=== PATIENT | female | born 1945 | race Caucasian/White ===

== ENCOUNTER → 2016-06-23 | Outpatient (CLI) | payer MEDICARE ==
--- NOTE | 2016-06-23 13:44 | REP ---
Clinical: Chronic obstructive airway disease/asthma. Technique: PA and lateral. Comparison: 10/01/2015. Findings: Mediastinum and cardiac silhouette are normal. Lung ortega demonstrate chronic interstitial changes as well as postsurgical changes at the right lung base. No obvious acute consolidation, effusion, or pneumothorax. Skeletal structures intact. Impression: Chronic and postsurgical changes similar to prior examination. Signed by Bucky Magaña MD 06/23/2016 01:35 P
== END ==
LOC: M SMT 13:02
PROVIDERS: ATTEND Nurse Practitioner Adult Health
DX: R05 Cough (principal); J45.40 Moderate persistent asthma, uncomplicated

== ENCOUNTER → 2016-09-19 | Outpatient (CLI) | payer MEDICARE ==
[2016-09-19 19:19] LABS: ALBUMIN 4.1 GM/DL (3.2-5.2); ALBUMIN/GLOBULIN RATIO 1.52 (1.00-1.93); ALKALINE PHOSPHATASE 89 U/L (45-117); ALT/SGPT 34 U/L (12-78); ANION GAP 4 MEQ/L (8-16); AST/SGOT 14 U/L (15-37); BILIRUBIN,TOTAL 0.4 MG/DL (0.2-1.0); BLOOD UREA NITROGEN 20 MG/DL (7-18); CALCIUM LEVEL 8.4 MG/DL (8.8-10.2); CARBON DIOXIDE LEVEL 30 MEQ/L (21-32); CHLORIDE LEVEL 107 MEQ/L (98-107); CHOLESTEROL LEVEL 234 MG/DL (<200); CREATININE FOR GFR 0.82 MG/DL (0.55-1.02); GLOMERULAR FILTRATION RATE > 60.0 (>39); GLUCOSE, FASTING 149 MG/DL (83-110); POTASSIUM SERUM 4.2 MEQ/L (3.5-5.1); SODIUM LEVEL 141 MEQ/L (136-145); TOTAL PROTEIN 6.8 GM/DL (6.4-8.2); TRIGLYCERIDES LEVEL 103 MG/DL (<150)
== END ==
LOC: M WUC 08:12
PROVIDERS: ATTEND Internal Medicine
DX: E78.00 Pure hypercholesterolemia, unspecified (principal); E11.9 Type 2 diabetes mellitus without complications

== ENCOUNTER → 2016-10-18 | Outpatient (CLI) | payer MEDICARE ==
[~2016-10-18] VITALS: Ht 166.4 cm; Wt 85.7 kg
[~2016-10-18] MED LIST: ADV250INH INH; ATOR1TAB21 PO; GLIP5TAB8 PO; HYDR-3713 PO; JANU100T PO; LIDOCAINE 2% MDV 20 ML VIAL As Ordered ONE; NS 1,000 ML IV ONE; PANT40TA2 PO; PROPOFOL 200 MG/20 ML VIAL As Ordered ONE; VALA1TAB2 PO; VITA500046 PO
--- NOTE | 2016-10-18 15:01 | ROOR ---
Patient Name: Sissy Bowman Procedure Date: 10/18/2016 2:43 PM Date of : 1945 Age: 71 Room: [facility] Gender: Female Note Status: Finalized Procedure: Upper Endoscopy + Biopsies Indications: Epigastric abdominal pain, Heartburn, Exclusion of Edwards's esophagus Providers: John Olea MD Referring MD: Satnam Arizmendi MD Requesting Provider: Medicines: Monitored Anesthesia Care Complications: No immediate complications. Procedure: Pre-Anesthesia Assessment: - The heart rate, respiratory rate, oxygen saturations, blood pressure, adequacy of pulmonary ventilation, and response to care were monitored throughout the procedure. The Endoscope was introduced through the mouth, and advanced to the second part of duodenum. The upper GI endoscopy was accomplished without difficulty. The patient tolerated the procedure well. Findings: The Z-line was irregular and was found 35 cm from the incisors. Multiple biopsies were obtained with cold forceps for evaluation to rule out Edwards's Esophagus randomly at the gastroesophageal junction. A medium-sized hiatal hernia was present. No other significant abnormalities were identified in a careful examination of the stomach. The exam of the duodenum was otherwise normal. Impression: - Z-line irregular, 35 cm from the incisors. - Medium-sized hiatal hernia. - Multiple biopsies were obtained at the gastroesophageal junction. - The examination was otherwise normal. Recommendation: - Patient has a contact number available for emergencies. The signs and symptoms of potential delayed complications were discussed with the patient. Return to normal activities tomorrow. Written discharge instructions were provided to the patient. - High fiber diet. - Discharge patient to home. - Continue present medications. - Await pathology results. - Telephone GI clinic for pathology results in 1 week. - Follow an antireflux regimen. - Return to referring physician. - Check Portal Online for Path Results.([email or web address] - The findings and recommendations were discussed with the patient's family. John Olea MD John Olea MD 10/18/2016 3:01:06 PM This report has been signed electronically. Number of Addenda: 0 Note Initiated On: 10/18/2016 2:43 PM Estimated Blood Loss: Estimated blood loss: none.
--- NOTE | 2016-10-18 15:31 | ROOR ---
Patient Name: Sissy Bowman Procedure Date: 10/18/2016 2:44 PM Date of : 1945 Age: 71 Room: [facility] Gender: Female Note Status: Finalized Procedure: Total Colonoscopy to Cecum + Cold Snare Polypectomy + Hemoclips Indications: Colon cancer screening in patient at increased risk: Colorectal cancer in mother, High risk colon cancer surveillance: Personal history of colonic polyps Providers: John Olea MD Referring MD: Satnam Arizmendi MD Requesting Provider: Medicines: Monitored Anesthesia Care Complications: No immediate complications. Procedure: Pre-Anesthesia Assessment: - The heart rate, respiratory rate, oxygen saturations, blood pressure, adequacy of pulmonary ventilation, and response to care were monitored throughout the procedure. The Colonoscope was introduced through the anus and advanced to the cecum, identified by appendiceal orifice and ileocecal valve. The colonoscopy was performed without difficulty. The patient tolerated the procedure well. The quality of the bowel preparation was excellent. Findings: The perianal and digital rectal examinations were normal. Non-bleeding internal hemorrhoids were found during retroflexion. The hemorrhoids were small and Grade I (internal hemorrhoids that do not prolapse). Multiple small and large-mouthed diverticula were found in the recto-sigmoid colon, sigmoid colon and descending colon. A large polyp was found in the mid ascending colon. The polyp was carpet-like. The polyp was removed with a cold snare. Resection and retrieval were complete. To prevent bleeding after the polypectomy, two hemostatic clips were successfully placed (MR conditional). There was no bleeding at the end of the procedure. The exam was otherwise without abnormality on direct and retroflexion views. Impression: - Non-bleeding internal hemorrhoids. - Diverticulosis in the recto-sigmoid colon, in the sigmoid colon and in the descending colon. - One large polyp in the mid ascending colon, removed with a cold snare. Resected and retrieved. Clips (MR conditional) were placed. - The examination was otherwise normal on direct and retroflexion views. - The exam was otherwise normal to the cecum. Recommendation: - Patient has a contact number available for emergencies. The signs and symptoms of potential delayed complications were discussed with the patient. Return to normal activities tomorrow. Written discharge instructions were provided to the patient. - High fiber diet. - Discharge patient to home. - Continue present medications. - Await pathology results. - Telephone GI clinic for pathology results in 1 week. - Repeat colonoscopy for surveillance based on pathology results. - Return to referring physician. - Check Portal Online for Path Results.([email or web address] - The findings and recommendations were discussed with the patient's family. John lOea MD John Olea MD 10/18/2016 3:30:53 PM This report has been signed electronically. Number of Addenda: 0 Note Initiated On: 10/18/2016 2:44 PM Estimated Blood Loss: Estimated blood loss: none.
[2016-10-18 15:55] VITALS: BP 140/69
== END ==
LOC: M OPP 14:10
PROVIDERS: ATTEND Internal Medicine Gastroenterology
DX: Z12.11 Encounter for screening for malignant neoplasm of colon (principal); Z80.0 Family history of malignant neoplasm of digestive organs; K64.0 First degree hemorrhoids; K57.30 Diverticulosis of large intestine without perforation or abscess without bleeding; D12.2 Benign neoplasm of ascending colon; K21.9 Gastro-esophageal reflux disease without esophagitis; K22.8 Other specified diseases of esophagus; K44.9 Diaphragmatic hernia without obstruction or gangrene; K20.9 Esophagitis, unspecified; E11.9 Type 2 diabetes mellitus without complications; M19.90 Unspecified osteoarthritis, unspecified site; G47.30 Sleep apnea, unspecified; E78.00 Pure hypercholesterolemia, unspecified; J45.909 Unspecified asthma, uncomplicated; Z79.51 Long term (current) use of inhaled steroids; Z79.899 Other long term (current) drug therapy; Z88.2 Allergy status to sulfonamides; Z91.040 Latex allergy status; Z88.8 Allergy status to other drugs, medicaments and biological substances; Z88.5 Allergy status to narcotic agent; Z87.891 Personal history of nicotine dependence

== ENCOUNTER → 2016-10-27 | Outpatient (REF) | payer MEDICARE ==
[~2016-10-27] MED LIST changes: -LIDOCAINE 2% MDV 20 ML VIAL As Ordered ONE; -NS 1,000 ML IV ONE; -PROPOFOL 200 MG/20 ML VIAL As Ordered ONE
[2016-10-27 10:40] LABS: MEAN CORPUSCULAR HEMOGLOBIN 29.3 pg (27.0-33.0); MEAN CORPUSCULAR HGB CONC 33.8 g/dl (32.0-36.5); MEAN CORPUSCULAR VOLUME 86.7 fl (80.0-96.0); RED CELL DISTRIBUTION WIDTH 14.4 % (11.5-14.5)
== END ==
LOC: M SFHCPLAZ 08:43
PROVIDERS: ATTEND Internal Medicine
DX: Z01.818 Encounter for other preprocedural examination (principal); M48.06 Spinal stenosis, lumbar region; G47.33 Obstructive sleep apnea (adult) (pediatric)
CPT/HCPCS: 36415; 85027; 93005; G0463

== ENCOUNTER → 2016-12-28 | Outpatient (REF) | payer MEDICARE ==
[2016-12-28 12:21] LABS: MEAN CORPUSCULAR HEMOGLOBIN 25.1 pg (27.0-33.0); MEAN CORPUSCULAR HGB CONC 30.1 g/dl (32.0-36.5); MEAN CORPUSCULAR VOLUME 83.5 fl (80.0-96.0); RED CELL DISTRIBUTION WIDTH 14.8 % (11.5-14.5); WHITE BLOOD COUNT 6.6 10^3/uL (4.0-10.0)
[2016-12-28 12:48] LABS: ALBUMIN/GLOBULIN RATIO 1.25 (1.00-1.93); ALKALINE PHOSPHATASE 100 U/L (45-117); ALT/SGPT 30 U/L (12-78); ANION GAP 9 MEQ/L (8-16); AST/SGOT 14 U/L (15-37); BILIRUBIN,TOTAL 0.4 MG/DL (0.2-1.0); BLOOD UREA NITROGEN 20 MG/DL (7-18); CALCIUM LEVEL 9.7 MG/DL (8.8-10.2); CARBON DIOXIDE LEVEL 27 MEQ/L (21-32); CHLORIDE LEVEL 104 MEQ/L (98-107); CHOLESTEROL LEVEL 246 MG/DL (<200); CREATININE FOR GFR 0.68 MG/DL (0.55-1.02); GLOMERULAR FILTRATION RATE > 60.0 (>39); GLUCOSE, FASTING 163 MG/DL (83-110); POTASSIUM SERUM 4.2 MEQ/L (3.5-5.1); SODIUM LEVEL 140 MEQ/L (136-145); TOTAL PROTEIN 7.2 GM/DL (6.4-8.2); TRIGLYCERIDES LEVEL 150 MG/DL (<150)
== END ==
LOC: M LABDRAW1 09:55
PROVIDERS: ATTEND Internal Medicine
DX: E11.9 Type 2 diabetes mellitus without complications (principal); E78.00 Pure hypercholesterolemia, unspecified; G47.33 Obstructive sleep apnea (adult) (pediatric)

== ENCOUNTER 2016-12-30 07:45 | Outpatient (RCR) | payer MEDICARE | END 2017-01-01 | LOC: M PT 07:45 | PROVIDERS: ATTEND Orthopaedic Surgery | DX: Z51.89 Encounter for other specified aftercare (principal); M43.26 Fusion of spine, lumbar region | CPT/HCPCS: 97110; 97161; G8978; G8979 ==

== ENCOUNTER 2017-02-23 09:04 | Outpatient (RCR) | payer MEDICARE | END 2017-03-03 | LOC: M PT 09:04 | PROVIDERS: ATTEND Orthopaedic Surgery | DX: Z47.89 Encounter for other orthopedic aftercare (principal); M54.5 Low back pain | CPT/HCPCS: 97110; 97112; G8978; G8979 ==

== ENCOUNTER 2017-03-08 10:02 | Outpatient (RCR) | payer MEDICARE | END 2017-04-03 | LOC: M PT 10:02 | DX: Z47.89 Encounter for other orthopedic aftercare (principal); Z98.1 Arthrodesis status | CPT/HCPCS: 97110 ==

== ENCOUNTER → 2017-04-14 | Outpatient (REF) | payer MEDICARE ==
[2017-04-14 14:52] LABS: HEMATOCRIT 37.8 % (36.0-47.0); HEMOGLOBIN 11.6 g/dl (12.0-16.0); MEAN CORPUSCULAR HEMOGLOBIN 24.2 pg (27.0-33.0); MEAN CORPUSCULAR HGB CONC 30.7 g/dl (32.0-36.5); MEAN CORPUSCULAR VOLUME 78.8 fl (80.0-96.0); PLATELET COUNT, AUTOMATED 292 10^3/uL (150-450); RED CELL DISTRIBUTION WIDTH 19.2 % (11.5-14.5); WHITE BLOOD COUNT 7.1 10^3/uL (4.0-10.0)
[2017-04-14 15:10] LABS: ALBUMIN 4.3 GM/DL (3.2-5.2); ALBUMIN/GLOBULIN RATIO 1.43 (1.00-1.93); ALKALINE PHOSPHATASE 103 U/L (45-117); ALT/SGPT 23 U/L (12-78); ANION GAP 9 MEQ/L (8-16); AST/SGOT 16 U/L (7-37); BILIRUBIN,TOTAL 0.5 MG/DL (0.2-1.0); BLOOD UREA NITROGEN 17 MG/DL (7-18); C REACTIVE PROTEIN QUANTITATIV 1.81 MG/DL (0.00-0.30); CALCIUM LEVEL 9.2 MG/DL (8.8-10.2); CARBON DIOXIDE LEVEL 26 MEQ/L (21-32); CHLORIDE LEVEL 106 MEQ/L (98-107); CHOLESTEROL LEVEL 271 MG/DL (<200); CHOLESTEROL RISK RATIO 3.188 (<5); CREATININE FOR GFR 0.69 MG/DL (0.55-1.02); FREE T3 2.8 PG/ML (2.2-4.0); FREE T4 1.11 NG/DL (0.76-1.46); GLOMERULAR FILTRATION RATE > 60.0 (>39); GLUCOSE, FASTING 159 MG/DL (83-110); HDL CHOLESTEROL 85 MG/DL (>40); LDL CHOLESTEROL 159.2 MG/DL (<100); NON-HDL-C 186 MG/DL; POTASSIUM SERUM 4.3 MEQ/L (3.5-5.1); SODIUM LEVEL 141 MEQ/L (136-145); TOTAL PROTEIN 7.3 GM/DL (6.4-8.2); TRIGLYCERIDES LEVEL 134 MG/DL (<150)
[2017-04-14 15:25] LABS: MALB URINE SIEMENS 22.2 MG/L; MAU/CREAT RATIO 10.8 MCG/MG (0.0-30.0)
[2017-04-14 16:31] LABS: ESTIMATED AVERAGE GLUCOSE 151 MG/DL (60-110); HEMOGLOBIN A1c 6.9 %
== END ==
LOC: M SFHCPLAZ 13:43
DX: G47.33 Obstructive sleep apnea (adult) (pediatric) (principal); E11.9 Type 2 diabetes mellitus without complications; R61 Generalized hyperhidrosis
CPT/HCPCS: 84443

== ENCOUNTER → 2017-04-14 | Outpatient (REF) | payer MEDICARE ==
[2017-04-14 15:02] LABS: CREATININE FOR GFR 0.72 MG/DL (0.55-1.02); GLOMERULAR FILTRATION RATE > 60.0 (>39)
[2017-04-14 15:02] LABS: BLOOD UREA NITROGEN 17 MG/DL (7-18)
== END ==
LOC: M LABDRAW1 13:45
DX: Z01.818 Encounter for other preprocedural examination (principal)

== ENCOUNTER 2017-05-02 09:24 | Outpatient (RCR) | payer MEDICARE | END 2017-05-04 | LOC: M PT 09:24 | DX: Z51.89 Encounter for other specified aftercare (principal); Z98.1 Arthrodesis status | CPT/HCPCS: 97164 ==

== ENCOUNTER 2017-05-05 09:10 | Outpatient (RCR) | payer MEDICARE | END 2017-06-01 | LOC: M PT 05-09 08:30 | DX: Z47.89 Encounter for other orthopedic aftercare (principal); Z98.1 Arthrodesis status; M54.5 Low back pain | CPT/HCPCS: 97110 ==

== ENCOUNTER 2017-06-02 08:29 | Outpatient (RCR) | payer MEDICARE | END 2017-07-02 | LOC: M PT 06-07 08:30 | DX: Z51.89 Encounter for other specified aftercare (principal); Z98.1 Arthrodesis status; M54.5 Low back pain | CPT/HCPCS: 97110 ==

== ENCOUNTER 2017-07-06 09:14 | Outpatient (RCR) | payer MEDICARE | END 2017-08-01 | LOC: M PT 09:14 | DX: Z47.89 Encounter for other orthopedic aftercare (principal); M54.5 Low back pain; Z98.1 Arthrodesis status; M48.061 Spinal stenosis, lumbar region without neurogenic claudication | CPT/HCPCS: 97110 ==

== ENCOUNTER → 2017-07-29 | Outpatient (REF) | payer MEDICARE, OTHER ==
[2017-07-29 10:11] LABS: ESTIMATED AVERAGE GLUCOSE 143 MG/DL (60-110); HEMOGLOBIN A1c 6.6 %
[2017-07-29 10:12] LABS: ALBUMIN/GLOBULIN RATIO 1.29 (1.00-1.93); ALKALINE PHOSPHATASE 93 U/L (45-117); ALT/SGPT 20 U/L (12-78); ANION GAP 6 MEQ/L (8-16); AST/SGOT 17 U/L (7-37); BILIRUBIN,TOTAL 0.4 MG/DL (0.2-1.0); BLOOD UREA NITROGEN 15 MG/DL (7-18); CALCIUM LEVEL 8.8 MG/DL (8.8-10.2); CARBON DIOXIDE LEVEL 27 MEQ/L (21-32); CHLORIDE LEVEL 111 MEQ/L (98-107); CHOLESTEROL LEVEL 250 MG/DL (<200); CHOLESTEROL RISK RATIO 3.623 (<5); CREATININE FOR GFR 0.68 MG/DL (0.55-1.30); GLOMERULAR FILTRATION RATE > 60.0 (>39); GLUCOSE, FASTING 125 MG/DL (70-100); HDL CHOLESTEROL 69 MG/DL (>40); LDL CHOLESTEROL 143.2 MG/DL (<100); NON-HDL-C 181 MG/DL; POTASSIUM SERUM 4.1 MEQ/L (3.5-5.1); SODIUM LEVEL 144 MEQ/L (136-145); TOTAL PROTEIN 7.1 GM/DL (6.4-8.2); TRIGLYCERIDES LEVEL 189 MG/DL (<150)
== END ==
LOC: M LABDRAW1 08:12
DX: E78.00 Pure hypercholesterolemia, unspecified (principal); E11.9 Type 2 diabetes mellitus without complications
CPT/HCPCS: 80053

== ENCOUNTER 2017-08-02 07:43 | Outpatient (RCR) | payer OTHER, MEDICARE | END 2017-09-01 | LOC: M PT 07:43 | DX: Z47.89 Encounter for other orthopedic aftercare (principal); M65.012 Abscess of tendon sheath, left shoulder | CPT/HCPCS: 97010 ==

== ENCOUNTER 2017-08-03 09:14 | Outpatient (RCR) | payer MEDICARE | END 2017-09-01 | disposition home or self-care (01) | LOC: M PT 09:14 | DX: Z47.89 Encounter for other orthopedic aftercare (principal); M54.5 Low back pain | CPT/HCPCS: 97110 ==

== ENCOUNTER 2017-09-06 08:33 | Outpatient (RCR) | payer OTHER | END 2017-10-01 | LOC: M PT 08:33 | DX: Z51.89 Encounter for other specified aftercare (principal); M75.32 Calcific tendinitis of left shoulder ==

== ENCOUNTER → 2018-02-13 | Outpatient (CLI) | payer MEDICARE ==
[2018-02-13 12:53] LABS: ALBUMIN 3.8 GM/DL (3.2-5.2); ALBUMIN/GLOBULIN RATIO 1.23 (1.00-1.93); ALKALINE PHOSPHATASE 89 U/L (45-117); ALT/SGPT 23 U/L (12-78); ANION GAP 8 MEQ/L (8-16); AST/SGOT 20 U/L (7-37); BILIRUBIN,TOTAL 0.4 MG/DL (0.2-1.0); BLOOD UREA NITROGEN 18 MG/DL (7-18); CARBON DIOXIDE LEVEL 26 MEQ/L (21-32); CHLORIDE LEVEL 108 MEQ/L (98-107); CHOLESTEROL LEVEL 255 MG/DL (<200); CHOLESTEROL RISK RATIO 3.148 (<5); CREATININE FOR GFR 0.71 MG/DL (0.55-1.30); GLOMERULAR FILTRATION RATE > 60.0 (>39); GLUCOSE, FASTING 131 MG/DL (70-100); HDL CHOLESTEROL 81 MG/DL (>40); LDL CHOLESTEROL 148 MG/DL (<100); NON-HDL-C 174 MG/DL; POTASSIUM SERUM 4.7 MEQ/L (3.5-5.1); SODIUM LEVEL 142 MEQ/L (136-145); TOTAL PROTEIN 6.9 GM/DL (6.4-8.2); TRIGLYCERIDES LEVEL 131 MG/DL (<150)
[2018-02-13 13:10] LABS: MALB URINE SIEMENS 10.8 MG/L
[2018-02-13 13:20] LABS: MAU/CREAT RATIO 8.5 MCG/MG (0.0-30.0)
[2018-02-13 14:59] LABS: ESTIMATED AVERAGE GLUCOSE 146 MG/DL (60-110); HEMOGLOBIN A1c 6.7 %
== END ==
LOC: M WUC 08:50
DX: E11.9 Type 2 diabetes mellitus without complications (principal); E78.00 Pure hypercholesterolemia, unspecified
CPT/HCPCS: 80053

== ENCOUNTER → 2018-07-17 | Outpatient (CLI) | payer MEDICARE ==
[~2018-07-17] MED LIST changes: +BUPIVACAINE HCL 0.25% 10 ML VIAL As Ordered ONE; +BUPIVACAINE HCL 0.25% 30 ML VIAL As Ordered ONE; -PANT40TA2 PO; +PANT40TA3 PO; +TRIAMCINOLONE ACETONIDE SUSP 40 MG/ML VIAL (J3301) As Ordered ONE
--- NOTE | 2018-07-31 00:06 | ECWPNPC ---
PATIENT NAME: ZACKARY RAMOS : 1945 GENDER: FEMALE VISIT DATE: 07/17/2018 DISCHARGE DATE: 07/17/18 1542 VISIT LOCKED DATE TIME: PHYSICIAN: NAVID GORDON MD RESOURCE: NAVID GORDON MD REASON FOR APPOINTMENT 1. CHRONIC BACK PAIN HISTORY OF PRESENT ILLNESS PAIN SCREENING: PATIENT HAS A COMPLAINT OF ACUTE OR CHRONIC PAIN :YES 72 YEAR OLD FEMALE PATIENT WITH A HISTORY OF CHRONIC LOW BACK PAIN. THE PATIENT DESCRIBES THE PAIN TENDER, SHARP, STABBING, AND CONTINUOUS WITH A PAIN SCORE OF 4-9/10 DEPENDING ON PHYSICAL ACTIVITY. THE PATIENT SAYS THAT SHE HAS HAD THIS PAIN FOR YEARS. THE PATIENT SAYS THAT SHE HAD A FUSION IN NOVEMBER 2016, BUT HER PAIN PERSISTED. THE PATIENT SAYS THAT HER PAIN IS IN HER LOW BACK AREA AND SHE ALSO HAS SOME PAIN IN HER HIPS. THE PATIENT SAYS THAT SHE HAS TRIED INJECTIONS IN THE PAST WITH VARIABLE RESULTS. THE PATIENT HAS TRIED PHYSICAL THERAPY AND SAYS THAT IT HELPED HER. THE PATIENT STATES THAT SHE HAS DIFFICULTY SLEEPING DUE TO THIS PAIN. PATIENT DENIES UNEXPLAINABLE WEIGHT LOSS, FEVER, CHILLS, NEW CHANGES ON HER URINARY OR BOWEL CONTROL. FALL RISK SCREENING: SCREENING :NO FALLS REPORTED IN THE LAST YEAR CURRENT MEDICATIONS TAKING VALTREX 1 GM TABLET DIRECTED ORALLY TAKE 2 TABS AT THE FIRST SIGN OF OUTBREAK AND REPEAT 2 TABS IN 12 HOURS TAKING SYSTANE 0.4-0.3 % SOLUTION 1 DROP INTO AFFECTED EYE NEEDED OPHTHALMIC DAILY NEEDED TAKING PROVENTIL HFA 108 (90 BASE) MCG/ACT AEROSOL SOLUTION 2 PUFFS ` INHALATION EVERY 4 HRS NEEDED FOR WHEEZING TAKING PROTONIX 40 MG TABLET DELAYED RELEASE 1 TABLET ORALLY ONCE A DAY TAKING JANUVIA 100 MG TABLET 1 TABLET ORALLY ONCE A DAY TAKING MICROLET LANCETS - MISCELLANEOUS DIRECTED E11.9 DAILY TAKING GLIPIZIDE 5 MG TABLET 1/2 TABLET ORALLY WTH SUPPER TAKING ADVAIR DISKUS 500-50 MCG/DOSE AEROSOL POWDER BREATH ACTIVATED 1 PUFF INHALATION TWICE A DAY TAKING BLOOD GLUCOSE TEST - STRIP DIRECTED IN VITRO, DX: E11.9 DAILY TAKING RHINOCORT AQUA 32 MCG/ACT SUSPENSION 2 PUFFS IN EACH NOSTRIL NASALLY ONCE A DAY NEEDED TAKING VITAMIN D3 2000 UNIT CAPSULE 1 TABLET ONCE A DAY TAKING MICROLET LANCETS _ MISCELLANEOUS DIRECTED DX: E11.9 DAILY, NOTES: DUPLICATE TAKING CALCIUM 500 MG TABLET 2 TABLET WITH MEALS ORALLY TWICE A DAY TAKING ADVIL 200 MG TABLET 2 TABLETS WITH FOOD OR MILK NEEDED ORALLY EVERY 6 HOURS NEEDED NOT-TAKING CLONIDINE HCL 0.1 MG TABLET 1 TABLET AT BEDTIME ORALLY ONCE A DAY NOT-TAKING ATORVASTATIN CALCIUM 20 MG TABLET 1 TABLET ORALLY ONCE A DAY NOT-TAKING FOSAMAX 70 MG TABLET 1 TABLET ORALLY ONCE A WEEK NOT-TAKING DIFLUCAN 150 MG TABLET DIRECTED ORALLY ONE TAB TODAY AND REPEAT IN 3 DAYS IF SYMPTOMS PERSIST NOT-TAKING FISH OIL 1000 MG CAPSULE 3 CAPSULE ORALLY ONCE A DAY MEDICATION LIST REVIEWED AND RECONCILED WITH THE PATIENT PAST MEDICAL HISTORY ASTHMA DIABETES MELLITUS HYPERCHOLESTEROLEMIA ALLERGIC RHINITIS HISTORY OF ADENOMATOUS POLYP OF COLON CHRONIC ARTHRITIS DYSTHYMIA OBSTRUCTIVE SLEEP APNEA INSOMNIA UNSPECIFIED ABDOMINAL PAIN HERPES SIMPLEX DISEASE NIGHT SWEATS HISTORY OF SPINAL STENOSIS AGE-RELATED OSTEOPOROSIS WITHOUT CURRENT PATHOLOGICAL FRACTURE BACK PAIN ALLERGIES TORECAN: STIFF JAW - ALLERGY LEVAQUIN: RASH - ALLERGY IV TEQUIN: RASH - ALLERGY SULFACET-R: SEVERE HEADACHES - SIDE EFFECTS TAPES: RASH - ALLERGY DEMEROL: HALLUCINATIONS - ALLERGY METFORMIN HCL: EXCESSIVE NIGHT SWEATS,ELEVATED GLUCOSE - ALLERGY LEXAPRO: GROGGY - SIDE EFFECTS SULFA (FOR ALLERGY USE ONLY): SEVERE HESDACHE - ALLERGY REMERON: GROGGY - SIDE EFFECTS SURGICAL HISTORY TONSILLECTOMY CHILDHOOD D&C HYSTERECTOMY, TRANSVAGINAL FOR FIBROIDS 1989 RIGHT LOWER LOBE RESECTION FOR PULMONARY NODULE (FOUND TO BE TANJA) 1990 ENDOSCOPIC SINUS SURGERY 1997 BILATERAL BREAST REDUCTION 2006 COLONOSCOPY 11/2010 COLONOSCOPY AND UPPER ENDOSCOPIES-DR. KAYE 10/18/2016 L2-5 LAMENECTOMY AND FUSION-DR LUCAS, FOR SPINAL STENOSIS 11/11/2016 FAMILY HISTORY FATHER: , DIAGNOSED WITH DIABETES, HYPERTENSION, HEART DISEASE MOTHER: , OTHER, CANCER SIBLINGS: ALIVE DAUGHTER(S): ALIVE PATERNAL GRAND FATHER: PATERNAL GRAND MOTHER: MATERNAL GRAND FATHER: MATERNAL GRAND MOTHER: 2 SISTER(S) . 2DAUGHTER(S) . SISTER HAS DIABETES,ARTHRITIS\NNOT SURE OF OTHER SISTERS HEALTH\NFATHER HAD DIABETES AND HEART DISEASE. MOTHER OF PANCREATIC CANCER, APPARENTLY HAD COLON CANCER,AND WAS HYPOTHYROID. ONE OF TWO SISTERS IS HYPOTHYROID. , 1 MISCARRIAGE; ONE DAUGHTER HAS ASTHMA.\N. SOCIAL HISTORY GENERAL: TOBACCO USE ARE YOU A:NONSMOKER LATEX QUESTIONNAIRE LATEX ALLERGY : HAVE YOU EVER DEVELOPED ANY TYPE OF REACTION AFTER HANDLING LATEX PRODUCTS SUCH RUBBER GLOVES, CONDOMS, DIAPHRAGMS, BALLOONS, SOCKS, OR UNDERWEAR?YES - PLEASE INDICATE :RUBBER GLOVES LATEX ALLERGY : HAVE YOU EVER DEVELOPED ANY TYPE OF REACTION DURING OR AFTER DENTAL APPOINTMENT, VAGINAL/RECTAL EXAMINATION, SURGICAL PROCEDURE, OR ANY OTHER EXPOSURE?NO LATEX RISK : HAVE YOU EVER HAD ANY DIFFICULTY BREATHING OR HIVES AFTER EATING OR HANDLING ANY FRUITS, OR VEGETABLES; SUCH KIWI, BANANAS, STONE FRUITS, OR CHESTNUTSNO LATEX RISK : DO YOU HAVE A PREVIOUS PERSONAL HISTORY OF MORE THAN NINE SURGERIES, SPINA BIFIDA, OR REPEATED CATHERTIZATIONS? NO LATEX RISK : ARE YOU FREQUENTLY EXPOSED TO LATEX PRODUCTS IN YOUR OCCUPATION?NO DATE ASKED : 07/17/2018 BMI CARE GOAL FOLLOW-UP ABOVE NORMAL BMI FOLLOW-UPWEIGHT MONITORING RECREATIONAL DRUG USE DENIES. CAFFEINE 1-2/DAY. SEXUAL HX HAD SEX IN THE LAST 12 MONTHS (VAGINAL, ORAL, OR ANAL)?NO HAVE YOU EVER HAD AN STD?NO HIV / HEP-C SCREENING HIV TEST OFFERED TO PATIENT:YES DATE OFFERED:08/02/2017 TEST ACCEPTED:NO HEP-C TEST OFFERED TO PATIENT:YES DATE OFFERED:08/02/2017 REASON:PATIENT DECLINED TEST ACCEPTED:NO REASON:PATIENT DECLINED BROCHURE PROVIDED TO PATIENTYES DRUZE NO CONGREGATION BELIEFS THAT WOULD IMPACT HEALTH CARE. LANGUAGE GUAMANIAN. 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 DIET: NO CONCENTRATED SWEETS.. EXERCISE: WALKS. OTHERS AT HOME: NONE. PAIN CLINIC PFS, CLERGY, PUBLIC HEALTH REFERRALS HAS THE PATIENT BEEN EDUCATED REGARDING HIS/HER PLAN OF CARE?YES HAS THE PATIENT BEEN EDUCATED REGARDING PAIN, THE RISK FOR PAIN, THE IMPORTANCE OF EFFECTIVE PAIN MANAGEMENT, AND THE PAIN ASSESSMENT PROCESS?YES HOUSING: OWNS HOME. ADVANCE DIRECTIVE ADVANCE DIRECTIVE DISCUSSED WITH PATIENT:YES 07-17-18 PT. STATES SHE HAS HCP 1. ROBERT BARRAGAN [phone] 2. DAVID MATHEW [phone] POA: ROBERT BARRAGAN LIVING WILL HOSPITALIZATION/MAJOR DIAGNOSTIC PROCEDURE STATED ABOVE 2 CHILDBIRTH ASTHMA PNEUMONIA CHEST PAIN 10/2014 ER VISIT FOR SCIATIC PAIN- WHILE CAPE COD 10/2015 REVIEW OF SYSTEMS REVIEWED BY: PROVIDER: . CONSTITUTIONAL: ANY CHANGE IN YOUR MEDICAL CONDITION? NO . CHILLS NO . FEVER NO . INFECTION: DO YOU HAVE NEW INFECTIONS? NO . DO YOU HAVE HISTORY OF MRSA? NO . MUSCULOSKELETAL: ANY NEW PATTERNS OF PAIN OR NUMBNESS? NO . SYTEMIC LUPUS NO . GASTROENTEROLOGY: ANY NEW CHANGE IN BOWEL CONTROL? NO . BARRETTS ESOPHAGUS NO . CIRRHOSIS NO . HEPATITIS NO . LIVER FAILURE NO . ACID REFLUX YES . UNEXPLAINED WEIGHT LOSS NO . GENITOURINARY: ANY NEW CHANGE IN BLADDER CONTROL? NO . IS THERE A CHANCE YOU COULD BE ? NO . HEMATOLOGY/LYMPH: DO YOU TAKE ANY BLOOD THINNERS? (FOR EXAMPLE- COUMADIN, PLAVIX, AGGRENOX, PLATEL, PRADAXA, OR XARELTO) NO . WHEN WAS YOUR LAST DOSE? DATE: TIME: . LOW PLATELET COUNT NO . SICKLE CELL DISEASE NO . VON WILLIEBRANDS NO . FACTOR V LEIDEN NO . THALLASEMIA NO . ANEMIA YES, POST OP . EASY BRUISING YES, NOT ON ANTICOAGULANTS . NEUROLOGY: HAVE YOU FALLEN IN THE PAST 12 MONTHS? NO . ANY NEW EXTREMITY NUMBNESS OR WEAKNESS? NO . HEAD INJURY NO . DEMENTIA NO . CEREBRAL PALSY NO . MULTIPLE SCLEROSIS NO . DIZZINESS NO . HEADACHE NO . STROKES NO . VERTIGO NO . CARDIOLOGY: DO YOU HAVE A PACEMAKER OR DEFIBRILLATOR? NO . ANGINA NO . HEART ATTACK NO . HEART SURGERY NO . CONGESTIVE HEART FAILURE/FLUID OVERLOAD NO . CHEST PAIN NO . HIGH BLOOD PRESSURE NO . IRREGULAR HEART BEAT OCCASIONALLY, STRESS TEST NEGATIVE >6 YEARS . RESPIRATORY: HAVE YOU BEEN SICK IN THE PAST WEEK? NO . FEVER NO . FLU LIKE SYMPTOMS? NO . CPAP YES, HAS BUT DOESN'T USE DUE TO NOT SLEEPING SINCE BACK SURG, 11/2016 . BYPAP NO . ASTHMA YES, SINCE AGE 1 . EMPHYSEMA NO . CHRONIC LUNG DISEASES NO . SHORTNESS OF BREATH ON EXERTION YES, OCCASSIONALLY . COUGH NO . SNORING NO . INTEGUMENTARY: DO YOU HAVE ANY RASHES OR OPEN SORES? NO . ALLERGIC/IMMUNO: ARE YOU ALLERGIC TO IV DYE? NO . ANY NEW ALLERGIES? NO . PSYCHIATRIC: DO YOU HAVE THOUGHTS OF HURTING YOURSELF OR SOMEONE ELSE? NO . ARE YOU ABUSED, NEGLECTED, OR IN AN UNSAFE ENVIRONMENT? NO . ENDOCRINOLOGY: ARE YOU DIABETIC? YES FSBS RUN APPROX 102 . THYROID DISORDER NO . OTHER: DO YOU NEED ANY PRESCRIPTIONS? NO . IF YES, PLEASE LIST: ____ . ANY NEW PROBLEMS WITH YOUR MEDICATIONS? NO . WHEN DID YOU LAST EAT? ____ . WHEN DID YOU LAST DRINK? ____ . WHAT DID YOU LAST DRINK? ____ . NAME OF PERSON DRIVING YOU HOME? ____ . DO YOU HAVE ANY OTHER QUESTIONS OR CONCERNS YES, WOULD LIKE SOMETHING FOR PAIN . VITAL SIGNS WT 188 LBS, HT 65 IN, BMI 31.28 INDEX, BP 136/73 MM HG, HR 120 /MIN, RR 18 /MIN, TEMP 97.0 F, OXYGEN SAT % 95%, SAFE IN ENV? (Y/N) Y, NA INITIALS AW 1357, REVIEWED BY: [facility] NURSE KNOW ABOUT HR4/15/19 HR RECHECK 90. EXAMINATION GENERAL EXAMINATION: PATIENT IS ALERT O X 3 AND COOPERATIVE. LUNGS CLEAR, TO AUSCULTATION. HEART: NO MURMURS OR GALLOPS; FACIAL CRANIAL NERVES ARE GROSSLY NORMAL. GOOD SYMMETRY OF FACIAL MUSCLE MOVEMENT. NORMAL VISUAL DHILLON. TENDERNESS IN THE LOW BACK AREA OVER THE SACROILIAC JOINT. PRESENCE OF TRIGGER POINTS AND BANDS OF TISSUE WITH RESTRICTION OF MOVEMENT OF THE BACK. PATIENT HAS SOME TROUBLE BALANCING WHILE WALKING. THE PATIENT REPORTS AN INCREASE IN PAIN IN THE LOW BACK AFTER THE FABERE TEST WAS PERFORMED. MRI OF THE LUMBAR SPINE DONE ON 09/24/2017 SHOWS POST LAMINECTOMY CHANGES FROM L2 TO L5 AND AN OSTEOPHYTE AT L5-S1. 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 RAMOS'S PAIN MANAGEMENT CASE. DUE TO THE TRIGGER POINTS, BANDS OF TISSUE, AND RESTRICTION OF MOVEMENT, I WOULD LIKE TO MOVE FORWARD WITH A TRIGGER POINT INJECTION AT THIS TIME. WE DISCUSSED THE BENEFITS, RISKS, AND ALTERNATIVES OF THE INJECTION AND THE PATIENT WOULD LIKE TO PROCEED. I WOULD ALSO LIKE THE PATIENT TO START PHYSICAL THERAPY SINCE SHE REPORTS HAVING BENEFITED FROM IT IN THE PAST. I WILL START THE PATIENT ON TIZANIDINE AT NIGHT. THE PATIENT MAY CONSIDER SEVERAL OPTIONS IN THE FUTURE INCLUDING AN UPDATED LUMBAR MRI, SACROILIAC JOINT BLOCK, AND CYMBALTA. INSTRUCTIONS WERE GIVEN, QUESTIONS WERE ANSWERED, PATIENT REPORTS UNDERSTANDING AND AGREES WITH THE PLAN. I, ALEXANDRO BERMUDEZ, DOCUMENTED THE ABOVE INFORMATION ACTING A SCRIBE FOR DR. GORDON. I HAVE REVIEWED THE ABOVE DOCUMENT, WRITTEN BY ALEXANDRO WINTER AND I VERIFY THAT IT IS ACCURATE. DEAR DR. LUCAS:THANK YOU FOR YOUR KIND REFERRAL OF MRS. RAMOS. IF YOU WANT TO DISCUSS HER CASE WITH ME PLEASE CALL ME AT THE PAIN CENTER AT [phone]. SINCERELY,NAVID GORDON, [facility] . OTHERS START TIZANIDINE HCL TABLET, 2 MG, 1 TABLET NEEDED, ORALLY FOR SPASMS AND PAIN, BEFORE BEDTIME MAY REPEAT IN 4 HRS MDD2, 30 DAYS, 50, REFILLS 1 PREVENTIVE MEDICINE PAIN CLINIC TEACHING: MEDICATIONS PRINTED INFORMATION GIVEN TO AND REVIEWED WITH PT ON TIZANIDINE AND SHE VERBALIZED UNDERSTANDING. AD. PROCEDURE TEACHING PT. DECLINED PRINTED INFORMATION ON TRIGGER POINT INJECTIONS STATING DR. GORDON EXPLAINED IT VERY WELL AND SHE IS COMFORTABLE WITH THAT INFORMATION. I REVIEWED THE PROCEDURE WITH HER ALSO. PRINTED PRE-PROCEDURE INSTRUCTIONS GIVEN TO AND REVIEWED WITH PT AND SHE VERBALIZED UNDERSTANDING. AD. PROCEDURE CODES FA211 ESTABILISHED PATIENT [facility] FACILITY CHARGE G8427 CURRENT MEDS W/DOSAGES DOCUMENTED G8730 PAIN ASSESS POS TOOL F/U PLAN DOC DISPOSITION & COMMUNICATION FOLLOW UP 6 WEEKS ELECTRONICALLY SIGNED BY NAVID GORDON MD, MD ON 07/30/2018 AT 06:43 PM EDT DISCLAIMER : THIS IS A VISIT SUMMARY EXTRACTED FROM THE [employer] CHART. IT IS NOT A COPY OF THE [employer] PROGRESS NOTE. RALPH
== END ==
LOC: M PAIN 14:15
PROVIDERS: ATTEND Anesthesiology
DX: M79.18 Myalgia, other site (principal); M46.1 Sacroiliitis, not elsewhere classified; M96.1 Postlaminectomy syndrome, not elsewhere classified; M70.71 Other bursitis of hip, right hip; M70.72 Other bursitis of hip, left hip; E11.9 Type 2 diabetes mellitus without complications; J45.909 Unspecified asthma, uncomplicated; E78.00 Pure hypercholesterolemia, unspecified; G47.30 Sleep apnea, unspecified; K21.9 Gastro-esophageal reflux disease without esophagitis; M81.0 Age-related osteoporosis without current pathological fracture; Z79.84 Long term (current) use of oral hypoglycemic drugs; Z79.899 Other long term (current) drug therapy; Z88.2 Allergy status to sulfonamides; Z88.8 Allergy status to other drugs, medicaments and biological substances; Z91.09 Other allergy status, other than to drugs and biological substances

== ENCOUNTER → 2018-07-18 | Outpatient (CLI) | payer MEDICARE ==
[~2018-07-18] MED LIST changes: -BUPIVACAINE HCL 0.25% 10 ML VIAL As Ordered ONE; -BUPIVACAINE HCL 0.25% 30 ML VIAL As Ordered ONE; -TRIAMCINOLONE ACETONIDE SUSP 40 MG/ML VIAL (J3301) As Ordered ONE
--- NOTE | 2018-07-31 00:04 | ECWPNPC ---
PATIENT NAME: ZACKARY RAMOS : 1945 GENDER: FEMALE VISIT DATE: 07/18/2018 DISCHARGE DATE: 07/18/18 1449 VISIT LOCKED DATE TIME: PHYSICIAN: NAVID GORDON MD RESOURCE: NAVID GORDON MD REASON FOR APPOINTMENT 1. TPI BILATERAL LOW BACK HISTORY OF PRESENT ILLNESS HISTORY OF PRESENT ILLNESS: PAIN THE PATIENT DESCRIBES THE PAIN... FALL RISK SCREENING: SCREENING :NO FALLS REPORTED IN THE LAST YEAR CURRENT MEDICATIONS TAKING VALTREX 1 GM TABLET DIRECTED ORALLY TAKE 2 TABS AT THE FIRST SIGN OF OUTBREAK AND REPEAT 2 TABS IN 12 HOURS, NOTES: 1MONTH AGO TAKING SYSTANE 0.4-0.3 % SOLUTION 1 DROP INTO AFFECTED EYE NEEDED OPHTHALMIC DAILY NEEDED, NOTES: 1WEEK AGO TAKING PROVENTIL HFA 108 (90 BASE) MCG/ACT AEROSOL SOLUTION 2 PUFFS ` INHALATION EVERY 4 HRS NEEDED FOR WHEEZING, NOTES: 1 WEEK AGO TAKING PROTONIX 40 MG TABLET DELAYED RELEASE 1 TABLET ORALLY ONCE A DAY, NOTES: 07/17/18@0700 TAKING JANUVIA 100 MG TABLET 1 TABLET ORALLY ONCE A DAY, NOTES: 07/17/18@0700 TAKING MICROLET LANCETS - MISCELLANEOUS DIRECTED E11.9 DAILY TAKING GLIPIZIDE 5 MG TABLET 1/2 TABLET ORALLY WTH SUPPER, NOTES: 07/17/18@1730 TAKING BLOOD GLUCOSE TEST - STRIP DIRECTED IN VITRO, DX: E11.9 DAILY TAKING RHINOCORT AQUA 32 MCG/ACT SUSPENSION 2 PUFFS IN EACH NOSTRIL NASALLY ONCE A DAY NEEDED, NOTES: NONE RECENTLY TAKING VITAMIN D3 2000 UNIT CAPSULE 1 TABLET ONCE A DAY, NOTES: 07/17/18@0700 TAKING MICROLET LANCETS _ MISCELLANEOUS DIRECTED DX: E11.9 DAILY, NOTES: DUPLICATE TAKING CALCIUM 500 MG TABLET 2 TABLET WITH MEALS ORALLY TWICE A DAY, NOTES: 07/17/18@0700 TAKING ADVIL 200 MG TABLET 2 TABLETS WITH FOOD OR MILK NEEDED ORALLY EVERY 6 HOURS NEEDED, NOTES: 2 DAYS AGO TAKING TIZANIDINE HCL 2 MG TABLET 1 TABLET NEEDED ORALLY FOR SPASMS AND PAIN BEFORE BEDTIME MAY REPEAT IN 4 HRS MDD2, NOTES: HASN'T USED YET TAKING ADVAIR DISKUS 500-50 MCG/DOSE AEROSOL POWDER BREATH ACTIVATED 1 PUFF INHALATION TE TWICE A DAY, NOTES: 07/17/18@1700 TAKING EXCEDRIN MIGRAINE 250-250-65 MG TABLET 2 TABLETS ORALLY ONCE A DAY, NOTES: 2 DAYS AGO DISCONTINUED CLONIDINE HCL 0.1 MG TABLET 1 TABLET AT BEDTIME ORALLY ONCE A DAY DISCONTINUED ATORVASTATIN CALCIUM 20 MG TABLET 1 TABLET ORALLY ONCE A DAY DISCONTINUED FOSAMAX 70 MG TABLET 1 TABLET ORALLY ONCE A WEEK DISCONTINUED DIFLUCAN 150 MG TABLET DIRECTED ORALLY ONE TAB TODAY AND REPEAT IN 3 DAYS IF SYMPTOMS PERSIST DISCONTINUED FISH OIL 1000 MG CAPSULE 3 CAPSULE ORALLY ONCE A DAY MEDICATION LIST REVIEWED AND RECONCILED WITH THE PATIENT PAST MEDICAL HISTORY ASTHMA DIABETES MELLITUS HYPERCHOLESTEROLEMIA ALLERGIC RHINITIS HISTORY OF ADENOMATOUS POLYP OF COLON CHRONIC ARTHRITIS DYSTHYMIA OBSTRUCTIVE SLEEP APNEA INSOMNIA UNSPECIFIED ABDOMINAL PAIN HERPES SIMPLEX DISEASE NIGHT SWEATS HISTORY OF SPINAL STENOSIS AGE-RELATED OSTEOPOROSIS WITHOUT CURRENT PATHOLOGICAL FRACTURE BACK PAIN ALLERGIES TORECAN: STIFF JAW - ALLERGY LEVAQUIN: RASH - ALLERGY IV TEQUIN: RASH - ALLERGY SULFACET-R: SEVERE HEADACHES - SIDE EFFECTS TAPES: RASH - ALLERGY DEMEROL: HALLUCINATIONS - ALLERGY METFORMIN HCL: EXCESSIVE NIGHT SWEATS,ELEVATED GLUCOSE - ALLERGY LEXAPRO: GROGGY - SIDE EFFECTS SULFA (FOR ALLERGY USE ONLY): SEVERE HESDACHE - ALLERGY REMERON: GROGGY - SIDE EFFECTS SURGICAL HISTORY TONSILLECTOMY CHILDHOOD D&C HYSTERECTOMY, TRANSVAGINAL FOR FIBROIDS 1989 RIGHT LOWER LOBE RESECTION FOR PULMONARY NODULE (FOUND TO BE TANJA) 1990 ENDOSCOPIC SINUS SURGERY 1997 BILATERAL BREAST REDUCTION 2006 COLONOSCOPY 11/2010 COLONOSCOPY AND UPPER ENDOSCOPIES-DR. KAYE 10/18/2016 L2-5 LAMENECTOMY AND FUSION-DR LUCAS, FOR SPINAL STENOSIS 11/11/2016 FAMILY HISTORY FATHER: , DIAGNOSED WITH DIABETES, HYPERTENSION, HEART DISEASE MOTHER: , OTHER, CANCER SIBLINGS: ALIVE DAUGHTER(S): ALIVE PATERNAL GRAND FATHER: PATERNAL GRAND MOTHER: MATERNAL GRAND FATHER: MATERNAL GRAND MOTHER: 2 SISTER(S) . 2DAUGHTER(S) . SISTER HAS DIABETES,ARTHRITIS\\NNOT SURE OF OTHER SISTERS HEALTH\\NFATHER HAD DIABETES AND HEART DISEASE. MOTHER OF PANCREATIC CANCER, APPARENTLY HAD COLON CANCER,AND WAS HYPOTHYROID. ONE OF TWO SISTERS IS HYPOTHYROID. , 1 MISCARRIAGE; ONE DAUGHTER HAS ASTHMA.\\N. SOCIAL HISTORY GENERAL: TOBACCO USE ARE YOU A:NONSMOKER LATEX QUESTIONNAIRE LATEX ALLERGY : HAVE YOU EVER DEVELOPED ANY TYPE OF REACTION AFTER HANDLING LATEX PRODUCTS SUCH RUBBER GLOVES, CONDOMS, DIAPHRAGMS, BALLOONS, SOCKS, OR UNDERWEAR?YES LATEX ALLERGY : HAVE YOU EVER DEVELOPED ANY TYPE OF REACTION DURING OR AFTER DENTAL APPOINTMENT, VAGINAL/RECTAL EXAMINATION, SURGICAL PROCEDURE, OR ANY OTHER EXPOSURE?NO - PLEASE INDICATE :RUBBER GLOVES DATE ASKED : 07/17/2018 LATEX RISK : HAVE YOU EVER HAD ANY DIFFICULTY BREATHING OR HIVES AFTER EATING OR HANDLING ANY FRUITS, OR VEGETABLES; SUCH KIWI, BANANAS, STONE FRUITS, OR CHESTNUTSNO LATEX RISK : DO YOU HAVE A PREVIOUS PERSONAL HISTORY OF MORE THAN NINE SURGERIES, SPINA BIFIDA, OR REPEATED CATHERTIZATIONS? NO LATEX RISK : ARE YOU FREQUENTLY EXPOSED TO LATEX PRODUCTS IN YOUR OCCUPATION?NO BMI CARE GOAL FOLLOW-UP ABOVE NORMAL BMI FOLLOW-UPWEIGHT MONITORING RECREATIONAL DRUG USE DENIES. CAFFEINE 1-2/DAY. SEXUAL HX HAD SEX IN THE LAST 12 MONTHS (VAGINAL, ORAL, OR ANAL)?NO HAVE YOU EVER HAD AN STD?NO HIV / HEP-C SCREENING HIV TEST OFFERED TO PATIENT:YES DATE OFFERED:08/02/2017 TEST ACCEPTED:NO HEP-C TEST OFFERED TO PATIENT:YES DATE OFFERED:08/02/2017 REASON:PATIENT DECLINED TEST ACCEPTED:NO REASON:PATIENT DECLINED BROCHURE PROVIDED TO PATIENTYES JEWISH NO RESTORATION BELIEFS THAT WOULD IMPACT HEALTH CARE. LANGUAGE PASHTO. 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 DIET: NO CONCENTRATED SWEETS.. EXERCISE: WALKS. OTHERS AT HOME: NONE. PAIN CLINIC PFS, CLERGY, PUBLIC HEALTH REFERRALS HAS THE PATIENT BEEN EDUCATED REGARDING HIS/HER PLAN OF CARE?YES HAS THE PATIENT BEEN EDUCATED REGARDING PAIN, THE RISK FOR PAIN, THE IMPORTANCE OF EFFECTIVE PAIN MANAGEMENT, AND THE PAIN ASSESSMENT PROCESS?YES HOUSING: OWNS HOME. ADVANCE DIRECTIVE ADVANCE DIRECTIVE DISCUSSED WITH PATIENT:YES 07-17-18 PT. STATES SHE HAS HCP 1. ROBERT HAROILLING [phone] 2. DAVID MATHEW [phone] POA: [facility] HOSPITALIZATION/MAJOR DIAGNOSTIC PROCEDURE STATED ABOVE 2 CHILDBIRTH ASTHMA PNEUMONIA CHEST PAIN 10/2014 ER VISIT FOR SCIATIC PAIN- WHILE CAPE COD 10/2015 REVIEW OF SYSTEMS REVIEWED BY: PROVIDER: . CONSTITUTIONAL: ANY CHANGE IN YOUR MEDICAL CONDITION? NO . CHILLS NO . FEVER NO . INFECTION: DO YOU HAVE NEW INFECTIONS? NO . DO YOU HAVE HISTORY OF MRSA? NO . MUSCULOSKELETAL: ANY NEW PATTERNS OF PAIN OR NUMBNESS? NO . GASTROENTEROLOGY: ANY NEW CHANGE IN BOWEL CONTROL? NO . GENITOURINARY: ANY NEW CHANGE IN BLADDER CONTROL? NO . IS THERE A CHANCE YOU COULD BE ? NO . HEMATOLOGY/LYMPH: DO YOU TAKE ANY BLOOD THINNERS? (FOR EXAMPLE- COUMADIN, PLAVIX, AGGRENOX, PLATEL, PRADAXA, OR XARELTO) NO . WHEN WAS YOUR LAST DOSE? DATE: TIME: . NEUROLOGY: HAVE YOU FALLEN IN THE PAST 12 MONTHS? NO . ANY NEW EXTREMITY NUMBNESS OR WEAKNESS? NO . CARDIOLOGY: DO YOU HAVE A PACEMAKER OR DEFIBRILLATOR? NO . RESPIRATORY: HAVE YOU BEEN SICK IN THE PAST WEEK? NO . FEVER NO . FLU LIKE SYMPTOMS? NO . COUGH NO . INTEGUMENTARY: DO YOU HAVE ANY RASHES OR OPEN SORES? NO . ALLERGIC/IMMUNO: ARE YOU ALLERGIC TO IV DYE? NO . ANY NEW ALLERGIES? NO . PSYCHIATRIC: DO YOU HAVE THOUGHTS OF HURTING YOURSELF OR SOMEONE ELSE? NO . ARE YOU ABUSED, NEGLECTED, OR IN AN UNSAFE ENVIRONMENT? NO . ENDOCRINOLOGY: ARE YOU DIABETIC? YES . OTHER: DO YOU NEED ANY PRESCRIPTIONS? NO . IF YES, PLEASE LIST: ____ . ANY NEW PROBLEMS WITH YOUR MEDICATIONS? NO . WHEN DID YOU LAST EAT? ____07/17/18 . WHEN DID YOU LAST DRINK? ____06 . WHAT DID YOU LAST DRINK? ____WATER . NAME OF PERSON DRIVING YOU HOME? ____BARB . DO YOU HAVE ANY OTHER QUESTIONS OR CONCERNS NO . VITAL SIGNS WT 188 LBS, HT 65 IN, BMI 31.28 INDEX, BP 154/73 MM HG, HR 116 /MIN, RR 18 /MIN, TEMP 97.0 F, OXYGEN SAT % 95%, SAFE IN ENV? (Y/N) YES, NA INITIALS AW 1316, REVIEWED BY: VD. ASSESSMENTS MYALGIA, OTHER SITE - M79.18 (PRIMARY) PROCEDURES PN TRIGGER POINT INJECTION WITH STEROIDS PRE PROCEDURE DIAGNOSIS 1. MYALGIA 2. PAIN AT BILATERAL LOW BACK AREA. POST PROCEDURE DIAGNOSIS 1. MYALGIA 2. PAIN AT BILATERAL LOW BACK AREA. PROCEDURE TRIGGER POINT INJECTION AT BILATERAL LOW BACK AREA. SURGEON DR. NAVID GORDON SAMPLE PATTERNMAKER NONE ANESTHESIA LOCAL PRE PROCEDURE NOTE THE PATIENT HAS A HISTORY OF CHRONIC PAIN AT THE RIGHT AND LEFT LOW BACK AREA. I EVALUATE THE PATIENT AND REVIEWED THE CHART. THERE IS EVIDENCE OF BANDS OF TISSUE WITH RESTRICTION OF MOVEMENT AND PRESENCE OF TRIGGER POINT AT THE AFFECTED AREA. I WENT OVER THE RISKS, ALTERNATIVES, AND BENEFITS ASSOCIATED WITH THIS PROCEDURE. THE PATIENT WOULD LIKE TO PROCEED AND GIVE CONSENT TO PERFORMED THE PROCEDURE. THE PATIENT DENIES UNEXPLAINABLE WEIGHT LOSS, FEVER, CHILLS, OR NEW CHANGES IN URINARY OR BOWEL CONTROL DESCRIPTION OF PROCEDURE THE PATIENT WAS BROUGHT TO THE PROCEDURE ROOM AND PLACED IN THE SITTING POSITION. THE AREA WAS CLEANED WITH ALCOHOL. THE PROCEDURE WAS DONE USING ASEPTIC STERILE TECHNIQUE. I CHECKED LATERALITY AND THE LEVEL WHERE THE PROCEDURE WAS GOING TO BE PERFORMED WITH THE PATIENT AND THE SUPPORTING STAFF AT THE MOMENT OF THE TIME OUT IN THE PROCEDURE ROOM. USING A 25-GAUGE NEEDLE, TRIGGER POINTS WERE INJECTED AT THE RIGHT AND LEFT LOW BACK AREA WITH A TOTAL OF 40 ML OF BUPIVACAINE 0.25% AND KENALOG 40 MG. THERE WAS NO EVIDENCE OF BLOOD, PARESTHESIA OR CEREBROSPINAL FLUID DURING THE PROCEDURE. THE PATIENT WAS SENT TO THE RECOVERY ROOM. THE PATIENT WAS MOVING THE EXTREMITIES AND DOING WELL. THERE WAS NO COMPLICATION DURING THE PROCEDURE POST PROCEDURE NOTE THE PATIENT WILL BE SEEN IN A FOLLOW UP IN THE NEXT FEW WEEKS. INSTRUCTIONS WERE GIVEN, QUESTIONS WERE ANSWERED, AND THE PATIENT EXPRESSED UNDERSTANDING AND AGREES WITH THE PLAN. I, JACINTA LENNON, DOCUMENTED THE ABOVE INFORMATION ACTING A SCRIBE FOR DR. GORDON. I HAVE REVIEWED THE ABOVE DOCUMENT, WRITTEN BY JACINTA WINTER AND I VERIFY THAT IT IS ACCURATE. PROCEDURE CODES 89937 INJECT TRIGGER POINT, 1 OR 2 DISPOSITION & COMMUNICATION FOLLOW UP 3 WEEKS ELECTRONICALLY SIGNED BY NAVID GORDON MD, MD ON 07/30/2018 AT 08:08 PM EDT DISCLAIMER : THIS IS A VISIT SUMMARY EXTRACTED FROM THE [employer] CHART. IT IS NOT A COPY OF THE [employer] PROGRESS NOTE. RALPH
== END ==
LOC: M PAIN 13:00
PROVIDERS: ATTEND Anesthesiology
DX: M79.18 Myalgia, other site (principal); M54.5 Low back pain; J45.909 Unspecified asthma, uncomplicated; E11.9 Type 2 diabetes mellitus without complications; E78.00 Pure hypercholesterolemia, unspecified; M19.90 Unspecified osteoarthritis, unspecified site; G47.30 Sleep apnea, unspecified; M81.0 Age-related osteoporosis without current pathological fracture; Z79.84 Long term (current) use of oral hypoglycemic drugs; Z79.899 Other long term (current) drug therapy; Z88.2 Allergy status to sulfonamides; Z88.8 Allergy status to other drugs, medicaments and biological substances; Z91.09 Other allergy status, other than to drugs and biological substances
CPT/HCPCS: 20552; J3301

== ENCOUNTER → 2018-08-09 | Outpatient (CLI) | payer MEDICARE ==
--- NOTE | 2018-08-26 23:45 | ECWPNPC ---
PATIENT NAME: ZACKARY RAMOS : 1945 GENDER: FEMALE VISIT DATE: 08/09/2018 DISCHARGE DATE: 08/09/181647 VISIT LOCKED DATE TIME: PHYSICIAN: NAVID GORDON MD RESOURCE: NAVID GORDON MD REASON FOR APPOINTMENT 1. POST TPI HISTORY OF PRESENT ILLNESS HISTORY OF PRESENT ILLNESS: PAIN THE PATIENT DESCRIBES THE PAIN... 72 YEAR OLD FEMALE PATIENT WITH A HISTORY OF CHRONIC LOW BACK AND HIP PAIN. THE PATIENT DESCRIBES THE PAIN ACHING, TENDER, SHARP, STABBING, AND CONTINUOUS WITH A PAIN SCORE OF 2-6/10 DEPENDING ON PHYSICAL ACTIVITY. THE PATIENT SAYS HER PAIN IS LOCATED IN HER LOW BACK, RIGHT HIP, AND LEFT HIP. THE PATIENT WAS HERE FOR A TRIGGER POINT INJECTION ON 07/18/2018 AND REPORTS HAVING ABOUT 5 DAYS OF PAIN RELIEF. PATIENT DENIES UNEXPLAINABLE WEIGHT LOSS, FEVER, CHILLS, NEW CHANGES ON HER URINARY OR BOWEL CONTROL. FALL RISK SCREENING: SCREENING :NO FALLS REPORTED IN THE LAST YEAR CURRENT MEDICATIONS TAKING SYSTANE 0.4-0.3 % SOLUTION 1 DROP INTO AFFECTED EYE NEEDED OPHTHALMIC DAILY NEEDED TAKING PROVENTIL HFA 108 (90 BASE) MCG/ACT AEROSOL SOLUTION 2 PUFFS ` INHALATION EVERY 4 HRS NEEDED FOR WHEEZING TAKING MICROLET LANCETS - MISCELLANEOUS DIRECTED E11.9 DAILY TAKING GLIPIZIDE 5 MG TABLET 1/2 TABLET ORALLY WTH SUPPER TAKING BLOOD GLUCOSE TEST - STRIP DIRECTED IN VITRO, DX: E11.9 DAILY TAKING RHINOCORT AQUA 32 MCG/ACT SUSPENSION 2 PUFFS IN EACH NOSTRIL NASALLY ONCE A DAY NEEDED TAKING VITAMIN D3 2000 UNIT CAPSULE 1 TABLET ONCE A DAY TAKING CALCIUM 500 MG TABLET 2 TABLET WITH MEALS ORALLY TWICE A DAY TAKING ADVIL 200 MG TABLET 2 TABLETS WITH FOOD OR MILK NEEDED ORALLY EVERY 6 HOURS NEEDED TAKING TIZANIDINE HCL 2 MG TABLET 1 TABLET NEEDED ORALLY FOR SPASMS AND PAIN BEFORE BEDTIME MAY REPEAT IN 4 HRS MDD2 TAKING ADVAIR DISKUS 500-50 MCG/DOSE AEROSOL POWDER BREATH ACTIVATED 1 PUFF INHALATION TE TWICE A DAY TAKING EXCEDRIN MIGRAINE 250-250-65 MG TABLET 1 TAB ORALLY ONCE A DAY NEEDED TAKING PROTONIX 40 MG TABLET DELAYED RELEASE 1 TABLET ORALLY ONCE A DAY TAKING VALTREX 1 GM TABLET DIRECTED ORALLY TAKE 2 TABS AT THE FIRST SIGN OF OUTBREAK AND REPEAT 2 TABS IN 12 HOURS TAKING VALTREX 500 MG TABLET 1 TABLET ORALLY ONCE A DAY TAKING JANUVIA 100 MG TABLET 1 TABLET ORALLY ONCE A DAY TAKING GENTAMICIN SULFATE 0.3 % SOLUTION 1 DROP INTO AFFECTED EYE OPHTHALMIC EVERY 4 HRS NOT-TAKING GENTAMICIN SULFATE 0.3 % OINTMENT 1 APPLICATION LEFT EYE OPHTHALMIC TWICE A DAY DISCONTINUED MICROLET LANCETS _ MISCELLANEOUS DIRECTED DX: E11.9 DAILY, NOTES: DUPLICATE MEDICATION LIST REVIEWED AND RECONCILED WITH THE PATIENT PAST MEDICAL HISTORY ASTHMA DIABETES MELLITUS HYPERCHOLESTEROLEMIA ALLERGIC RHINITIS HISTORY OF ADENOMATOUS POLYP OF COLON CHRONIC ARTHRITIS DYSTHYMIA OBSTRUCTIVE SLEEP APNEA INSOMNIA UNSPECIFIED ABDOMINAL PAIN HERPES SIMPLEX DISEASE NIGHT SWEATS HISTORY OF SPINAL STENOSIS AGE-RELATED OSTEOPOROSIS WITHOUT CURRENT PATHOLOGICAL FRACTURE BACK PAIN STY LEFT EYE ALLERGIES TORECAN: STIFF JAW - ALLERGY LEVAQUIN: RASH - ALLERGY IV TEQUIN: RASH - ALLERGY SULFACET-R: SEVERE HEADACHES - SIDE EFFECTS TAPES: RASH - ALLERGY DEMEROL: HALLUCINATIONS - SIDE EFFECTS METFORMIN HCL: EXCESSIVE NIGHT SWEATS,ELEVATED GLUCOSE - ALLERGY LEXAPRO: GROGGY - SIDE EFFECTS SULFA (FOR ALLERGY USE ONLY): SEVERE HESDACHE - ALLERGY REMERON: GROGGY - SIDE EFFECTS SURGICAL HISTORY TONSILLECTOMY CHILDHOOD D&C HYSTERECTOMY, TRANSVAGINAL FOR FIBROIDS 1989 RIGHT LOWER LOBE RESECTION FOR PULMONARY NODULE (FOUND TO BE TANJA) 1990 ENDOSCOPIC SINUS SURGERY 1997 BILATERAL BREAST REDUCTION 2006 COLONOSCOPY 11/2010 COLONOSCOPY AND UPPER ENDOSCOPIES-DR. KAYE 10/18/2016 L2-5 LAMENECTOMY AND FUSION-DR LUCAS, FOR SPINAL STENOSIS 11/11/2016 FAMILY HISTORY FATHER: , DIAGNOSED WITH HEART DISEASE, DIABETES, HYPERTENSION MOTHER: , CANCER, OTHER SIBLINGS: ALIVE DAUGHTER(S): ALIVE PATERNAL GRAND FATHER: PATERNAL GRAND MOTHER: MATERNAL GRAND FATHER: MATERNAL GRAND MOTHER: 2 SISTER(S) . 2DAUGHTER(S) . SISTER HAS DIABETES,ARTHRITIS\\\\NNOT SURE OF OTHER SISTERS HEALTH\\\\NFATHER HAD DIABETES AND HEART DISEASE. MOTHER OF PANCREATIC CANCER, APPARENTLY HAD COLON CANCER,AND WAS HYPOTHYROID. ONE OF TWO SISTERS IS HYPOTHYROID. , 1 MISCARRIAGE; ONE DAUGHTER HAS ASTHMA.\\\\N. SOCIAL HISTORY GENERAL: TOBACCO USE ARE YOU A:NONSMOKER HIV / HEP-C SCREENING HIV TEST OFFERED TO PATIENT:YES DATE OFFERED:08/02/2017 TEST ACCEPTED:NO HEP-C TEST OFFERED TO PATIENT:YES DATE OFFERED:08/02/2017 REASON:PATIENT DECLINED TEST ACCEPTED:NO REASON:PATIENT DECLINED BROCHURE PROVIDED TO PATIENTYES OTHERS AT HOME: NONE. HOUSING: OWNS HOME. DIET: NO CONCENTRATED SWEETS.. LANGUAGE SIERRA LEONEAN. DOMESTIC VIOLENCE DO YOU FEEL SAFE IN YOUR ENVIRONMENT?YES BMI CARE GOAL FOLLOW-UP ABOVE NORMAL BMI FOLLOW-UPWEIGHT MONITORING RECREATIONAL DRUG USE DENIES. EXERCISE: WALKS. LEARNING BARRIERS / SPECIAL NEEDS CHANGE FROM LAST VISIT?NO BARRIERS TO LEARNING?NO HEARING IMPAIRED?NO VISION IMPAIRED?YES :CORRECTIVE LENSES READING GLASSES COGNITIVELY IMPAIRED?NO READINESS TO LEARN?YES LEARNING PREFERENCES?NO LEARNING CAPABILITIES PRESENT?YES EMOTIONAL BARRIERS?NO SPECIAL DEVICES?YES :CANE, WALKER METER AND SERVICE LINE INSPECTOR NEEDED?NO PAIN CLINIC PFS, CLERGY, PUBLIC HEALTH REFERRALS HAS THE PATIENT BEEN EDUCATED REGARDING HIS/HER PLAN OF CARE?YES HAS THE PATIENT BEEN EDUCATED REGARDING PAIN, THE RISK FOR PAIN, THE IMPORTANCE OF EFFECTIVE PAIN MANAGEMENT, AND THE PAIN ASSESSMENT PROCESS?YES LATEX QUESTIONNAIRE LATEX ALLERGY : HAVE YOU EVER DEVELOPED ANY TYPE OF REACTION AFTER HANDLING LATEX PRODUCTS SUCH RUBBER GLOVES, CONDOMS, DIAPHRAGMS, BALLOONS, SOCKS, OR UNDERWEAR?YES - PLEASE INDICATE :RUBBER GLOVES LATEX ALLERGY : HAVE YOU EVER DEVELOPED ANY TYPE OF REACTION DURING OR AFTER DENTAL APPOINTMENT, VAGINAL/RECTAL EXAMINATION, SURGICAL PROCEDURE, OR ANY OTHER EXPOSURE?NO LATEX RISK : HAVE YOU EVER HAD ANY DIFFICULTY BREATHING OR HIVES AFTER EATING OR HANDLING ANY FRUITS, OR VEGETABLES; SUCH KIWI, BANANAS, STONE FRUITS, OR CHESTNUTSNO LATEX RISK : DO YOU HAVE A PREVIOUS PERSONAL HISTORY OF MORE THAN NINE SURGERIES, SPINA BIFIDA, OR REPEATED CATHERTIZATIONS? NO LATEX RISK : ARE YOU FREQUENTLY EXPOSED TO LATEX PRODUCTS IN YOUR OCCUPATION?NO DATE ASKED : 08/09/2018 CAFFEINE 1-2/DAY. ADVANCE DIRECTIVE ADVANCE DIRECTIVE DISCUSSED WITH PATIENT:YES 07-17-18 PT. STATES SHE HAS HCP 1. ROBERT BARRAGAN [phone] 2. DAVID MATHEW [phone] POA: ROBERT BARRAGAN LIVING WILL ORTHODOX NO GNOSTICIST BELIEFS THAT WOULD IMPACT HEALTH CARE. 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 SEXUAL HX HAD SEX IN THE LAST 12 MONTHS (VAGINAL, ORAL, OR ANAL)?NO HAVE YOU EVER HAD AN STD?NO HOSPITALIZATION/MAJOR DIAGNOSTIC PROCEDURE STATED ABOVE 2 CHILDBIRTH ASTHMA PNEUMONIA CHEST PAIN 10/2014 ER VISIT FOR SCIATIC PAIN- WHILE CAPE COD 10/2015 REVIEW OF SYSTEMS REVIEWED BY: PROVIDER: NAVID GORDON MD . CONSTITUTIONAL: ANY CHANGE IN YOUR MEDICAL CONDITION? NO . CHILLS NO . FEVER NO . INFECTION: DO YOU HAVE NEW INFECTIONS? YES, STY LEFT EYE . DO YOU HAVE HISTORY OF MRSA? NO . MUSCULOSKELETAL: ANY NEW PATTERNS OF PAIN OR NUMBNESS? NO . GASTROENTEROLOGY: ANY NEW CHANGE IN BOWEL CONTROL? NO . GENITOURINARY: ANY NEW CHANGE IN BLADDER CONTROL? NO . IS THERE A CHANCE YOU COULD BE ? NO . HEMATOLOGY/LYMPH: DO YOU TAKE ANY BLOOD THINNERS? (FOR EXAMPLE- COUMADIN, PLAVIX, AGGRENOX, PLATEL, PRADAXA, OR XARELTO) NO . WHEN WAS YOUR LAST DOSE? DATE: TIME: . NEUROLOGY: HAVE YOU FALLEN IN THE PAST 12 MONTHS? NO . ANY NEW EXTREMITY NUMBNESS OR WEAKNESS? NO . CARDIOLOGY: DO YOU HAVE A PACEMAKER OR DEFIBRILLATOR? NO . RESPIRATORY: HAVE YOU BEEN SICK IN THE PAST WEEK? NO . FEVER NO . FLU LIKE SYMPTOMS? NO . COUGH NO . INTEGUMENTARY: DO YOU HAVE ANY RASHES OR OPEN SORES? YES, STY LEFT EYE START COUPLE OF DAYS AGO. LEFT LID IS VERY RED . ALLERGIC/IMMUNO: ARE YOU ALLERGIC TO IV DYE? NO . ANY NEW ALLERGIES? NO . PSYCHIATRIC: DO YOU HAVE THOUGHTS OF HURTING YOURSELF OR SOMEONE ELSE? NO . ARE YOU ABUSED, NEGLECTED, OR IN AN UNSAFE ENVIRONMENT? NO . ENDOCRINOLOGY: ARE YOU DIABETIC? YES . OTHER: DO YOU NEED ANY PRESCRIPTIONS? NO . IF YES, PLEASE LIST: ____ . ANY NEW PROBLEMS WITH YOUR MEDICATIONS? NO . WHEN DID YOU LAST EAT? ____ . WHEN DID YOU LAST DRINK? ____ . WHAT DID YOU LAST DRINK? ____ . NAME OF PERSON DRIVING YOU HOME? ____ . DO YOU HAVE ANY OTHER QUESTIONS OR CONCERNS NO . VITAL SIGNS WT 187 LBS, HT 65 IN, BMI 31.12 INDEX, BP 140/63 MM HG, HR 108 /MIN, RR 18 /MIN, TEMP 99.1 F, OXYGEN SAT % 97%, SAFE IN ENV? (Y/N) Y, NA INITIALS NV 14:50, REVIEWED BY: SAMAN. EXAMINATION GENERAL EXAMINATION: PATIENT IS ALERT O X 3 AND COOPERATIVE. ANTALGIC GAIT. TENDERNESS OVER THE SACROILIAC JOINT. TENDERNESS OVER THE RIGHT AND LEFT GREATER TROCHANTER OF THE FEMUR. MRI OF THE LUMBAR SPINE DONE ON 04/25/2017 SHOWS POST LAMINECTOMY CHANGES. ASSESSMENTS SACROILIITIS, NOT ELSEWHERE CLASSIFIED - M46.1 (PRIMARY) TROCHANTERIC BURSITIS OF LEFT HIP - M70.62 TROCHANTERIC BURSITIS, RIGHT HIP - M70.61 TREATMENT SACROILIITIS, NOT ELSEWHERE CLASSIFIED CLINICAL NOTES: WE DISCUSSED SEVERAL ISSUES WITH MRS. RAMOS'S PAIN MANAGEMENT CASE. DUE TO THE SACROILIITIS, I WOULD LIKE TO MOVE FORWARD WITH A BILATERAL SACROILIAC JOINT BLOCK AND DUE TO THE TROCHANTERIC BURSITIS OVER BOTH HIPS, I WOULD LIKE TO MOVE FORWARD WITH A LEFT AND THEN RIGHT HIP INJECTION OVER THE GREATER TROCHANTER OF THE FEMUR. WE DISCUSSED THE BENEFITS, RISKS, AND ALTERNATIVES OF THE INJECTIONS AND THE PATIENT WOULD LIKE TO PROCEED. THE PATIENT WILL HAVE THE INJECTIONS 2 WEEKS APART AND WILL FOLLOW UP 2 WEEKS AFTER THE LAST INJECTION. INSTRUCTIONS WERE GIVEN, QUESTIONS WERE ANSWERED, PATIENT REPORTS UNDERSTANDING AND AGREES WITH THE PLAN. I, ALEXANDRO BERMUDEZ, DOCUMENTED THE ABOVE INFORMATION ACTING A SCRIBE FOR DR. GORDON. I HAVE REVIEWED THE ABOVE DOCUMENT, WRITTEN BY ALEXANDRO WINTER AND I VERIFY THAT IT IS ACCURATE. . PROCEDURE CODES FA211 ESTABILISHED PATIENT [facility] CHARGE [id number] CURRENT MEDS W/DOSAGES DOCUMENTED G8730 PAIN ASSESS POS TOOL F/U PLAN DOC DISPOSITION & COMMUNICATION FOLLOW UP 3 WEEKS ELECTRONICALLY SIGNED BY NAVID GORDON MD, MD ON 08/26/2018 AT 04:11 PM EDT DISCLAIMER : THIS IS A VISIT SUMMARY EXTRACTED FROM THE [employer] CHART. IT IS NOT A COPY OF THE [employer] PROGRESS NOTE. RALPH
== END ==
LOC: M PAIN 14:15
PROVIDERS: ATTEND Anesthesiology
DX: M46.1 Sacroiliitis, not elsewhere classified (principal); G89.29 Other chronic pain; M70.62 Trochanteric bursitis, left hip; M70.61 Trochanteric bursitis, right hip; J45.909 Unspecified asthma, uncomplicated; E11.9 Type 2 diabetes mellitus without complications; E78.00 Pure hypercholesterolemia, unspecified; M19.90 Unspecified osteoarthritis, unspecified site; G47.33 Obstructive sleep apnea (adult) (pediatric); G47.00 Insomnia, unspecified; M81.0 Age-related osteoporosis without current pathological fracture; Z88.1 Allergy status to other antibiotic agents; Z88.2 Allergy status to sulfonamides; Z88.5 Allergy status to narcotic agent; Z88.8 Allergy status to other drugs, medicaments and biological substances; Z91.09 Other allergy status, other than to drugs and biological substances; Z79.84 Long term (current) use of oral hypoglycemic drugs; Z79.899 Other long term (current) drug therapy

== ENCOUNTER → 2018-08-16 | Outpatient (CLI) | payer MEDICARE ==
[~2018-08-16] MED LIST changes: +BUPIVACAINE HCL 0.25% 30 ML VIAL As Ordered ONE; +ISOVUE-M 300 61% 15ML VIAL (Q9967) As Ordered ONE; +LIDOCAINE 1% SDV INJ 30 ML VIAL As Ordered ONE; +TRIAMCINOLONE ACETONIDE SUSP 40 MG/ML VIAL (J3301) As Ordered ONE
--- NOTE | 2018-08-16 13:14 | REP ---
SI joint series: Two views. History: Bilateral SI joint injection for pain. 21 seconds of fluoroscopy time is reported. Findings: A sequence of two last image hold fluoroscopically obtained spot radiographs of the sacroiliac joints bilaterally document needle position and contrast injection associated with injection procedure. Electronically Signed by Sotero Mcduffie MD 08/16/2018 01:05 P
--- NOTE | 2018-08-27 23:52 | ECWPNPC ---
PATIENT NAME: ZACKARY RAMOS : 1945 GENDER: FEMALE VISIT DATE: 08/16/2018 DISCHARGE DATE: 08/16/18 1210 VISIT LOCKED DATE TIME: PHYSICIAN: NAVID GORDON MD RESOURCE: NAVID GORDON MD REASON FOR APPOINTMENT 1. BILATERAL SIJ HISTORY OF PRESENT ILLNESS HISTORY OF PRESENT ILLNESS: PAIN THE PATIENT DESCRIBES THE PAIN... FALL RISK SCREENING: SCREENING :NO FALLS REPORTED IN THE LAST YEAR CURRENT MEDICATIONS TAKING SYSTANE 0.4-0.3 % SOLUTION 1 DROP INTO AFFECTED EYE NEEDED OPHTHALMIC DAILY NEEDED, NOTES: 08/15/18 07 TAKING PROVENTIL HFA 108 (90 BASE) MCG/ACT AEROSOL SOLUTION 2 PUFFS ` INHALATION EVERY 4 HRS NEEDED FOR WHEEZING, NOTES: MONTHS AGO TAKING MICROLET LANCETS - MISCELLANEOUS DIRECTED E11.9 DAILY TAKING GLIPIZIDE 5 MG TABLET 1/2 TABLET ORALLY WTH SUPPER, NOTES: 08/15/18 173 TAKING BLOOD GLUCOSE TEST - STRIP DIRECTED IN VITRO, DX: E11.9 DAILY TAKING RHINOCORT AQUA 32 MCG/ACT SUSPENSION 2 PUFFS IN EACH NOSTRIL NASALLY ONCE A DAY NEEDED, NOTES: MONTHS AGO TAKING VITAMIN D3 2000 UNIT CAPSULE 1 TABLET ONCE A DAY, NOTES: 08/15/18699 TAKING CALCIUM 500 MG TABLET 2 TABLET WITH MEALS ORALLY TWICE A DAY, NOTES: 08/15/18 07 TAKING ADVIL 200 MG TABLET 2 TABLETS WITH FOOD OR MILK NEEDED ORALLY EVERY 6 HOURS NEEDED, NOTES: 08/15/18 1000 TAKING TIZANIDINE HCL 2 MG TABLET 1 TABLET NEEDED ORALLY FOR SPASMS AND PAIN BEFORE BEDTIME MAY REPEAT IN 4 HRS MDD2, NOTES: FEW DAYS AGO TAKING ADVAIR DISKUS 500-50 MCG/DOSE AEROSOL POWDER BREATH ACTIVATED 1 PUFF INHALATION TE TWICE A DAY, NOTES: 08/15/18 173 TAKING EXCEDRIN MIGRAINE 250-250-65 MG TABLET 1 TAB ORALLY ONCE A DAY NEEDED, NOTES: WEEK AGO TAKING PROTONIX 40 MG TABLET DELAYED RELEASE 1 TABLET ORALLY ONCE A DAY, NOTES: 08/15/18699 TAKING VALTREX 500 MG TABLET 1 TABLET ORALLY ONCE A DAY, NOTES: WEEK AGO TAKING JANUVIA 100 MG TABLET 1 TABLET ORALLY ONCE A DAY, NOTES: 08/15/18699 NOT-TAKING VALTREX 1 GM TABLET DIRECTED ORALLY TAKE 2 TABS AT THE FIRST SIGN OF OUTBREAK AND REPEAT 2 TABS IN 12 HOURS NOT-TAKING GENTAMICIN SULFATE 0.3 % SOLUTION 1 DROP INTO AFFECTED EYE OPHTHALMIC EVERY 4 HRS NOT-TAKING GENTAMICIN SULFATE 0.3 % OINTMENT 1 APPLICATION LEFT EYE OPHTHALMIC TWICE A DAY MEDICATION LIST REVIEWED AND RECONCILED WITH THE PATIENT PAST MEDICAL HISTORY ASTHMA DIABETES MELLITUS HYPERCHOLESTEROLEMIA ALLERGIC RHINITIS HISTORY OF ADENOMATOUS POLYP OF COLON CHRONIC ARTHRITIS DYSTHYMIA OBSTRUCTIVE SLEEP APNEA INSOMNIA UNSPECIFIED ABDOMINAL PAIN HERPES SIMPLEX DISEASE NIGHT SWEATS HISTORY OF SPINAL STENOSIS AGE-RELATED OSTEOPOROSIS WITHOUT CURRENT PATHOLOGICAL FRACTURE BACK PAIN STY LEFT EYE ALLERGIES TORECAN: STIFF JAW - ALLERGY LEVAQUIN: RASH - ALLERGY IV TEQUIN: RASH - ALLERGY SULFACET-R: SEVERE HEADACHES - SIDE EFFECTS TAPES: RASH - ALLERGY DEMEROL: HALLUCINATIONS - SIDE EFFECTS METFORMIN HCL: EXCESSIVE NIGHT SWEATS,ELEVATED GLUCOSE - ALLERGY LEXAPRO: GROGGY - SIDE EFFECTS SULFA (FOR ALLERGY USE ONLY): SEVERE HESDACHE - ALLERGY REMERON: GROGGY - SIDE EFFECTS SURGICAL HISTORY TONSILLECTOMY CHILDHOOD D&C HYSTERECTOMY, TRANSVAGINAL FOR FIBROIDS 1989 RIGHT LOWER LOBE RESECTION FOR PULMONARY NODULE (FOUND TO BE TANJA) 1990 ENDOSCOPIC SINUS SURGERY 1997 BILATERAL BREAST REDUCTION 2006 COLONOSCOPY 11/2010 COLONOSCOPY AND UPPER ENDOSCOPIES-DR. KAYE 10/18/2016 L2-5 LAMENECTOMY AND FUSION-DR LUCAS, FOR SPINAL STENOSIS 11/11/2016 FAMILY HISTORY FATHER: , DIAGNOSED WITH DIABETES, HYPERTENSION, HEART DISEASE MOTHER: , OTHER, CANCER SIBLINGS: ALIVE DAUGHTER(S): ALIVE PATERNAL GRAND FATHER: PATERNAL GRAND MOTHER: MATERNAL GRAND FATHER: MATERNAL GRAND MOTHER: 2 SISTER(S) . 2DAUGHTER(S) . SISTER HAS DIABETES,ARTHRITIS\\\\NNOT SURE OF OTHER SISTERS HEALTH\\\\NFATHER HAD DIABETES AND HEART DISEASE. MOTHER OF PANCREATIC CANCER, APPARENTLY HAD COLON CANCER,AND WAS HYPOTHYROID. ONE OF TWO SISTERS IS HYPOTHYROID. , 1 MISCARRIAGE; ONE DAUGHTER HAS ASTHMA.\\\\N. SOCIAL HISTORY GENERAL: TOBACCO USE ARE YOU A:NONSMOKER HIV / HEP-C SCREENING HIV TEST OFFERED TO PATIENT:YES DATE OFFERED:08/02/2017 TEST ACCEPTED:NO HEP-C TEST OFFERED TO PATIENT:YES DATE OFFERED:08/02/2017 REASON:PATIENT DECLINED TEST ACCEPTED:NO REASON:PATIENT DECLINED BROCHURE PROVIDED TO PATIENTYES OTHERS AT HOME: NONE. HOUSING: OWNS HOME. DIET: NO CONCENTRATED SWEETS.. LANGUAGE SOUTH AFRICAN. DOMESTIC VIOLENCE DO YOU FEEL SAFE IN YOUR ENVIRONMENT?YES BMI CARE GOAL FOLLOW-UP ABOVE NORMAL BMI FOLLOW-UPWEIGHT MONITORING RECREATIONAL DRUG USE DENIES. EXERCISE: WALKS. 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, WALKER BUSINESS OFFICE COORDINATOR NEEDED?NO PAIN CLINIC PFS, CLERGY, PUBLIC HEALTH REFERRALS HAS THE PATIENT BEEN EDUCATED REGARDING HIS/HER PLAN OF CARE?YES HAS THE PATIENT BEEN EDUCATED REGARDING PAIN, THE RISK FOR PAIN, THE IMPORTANCE OF EFFECTIVE PAIN MANAGEMENT, AND THE PAIN ASSESSMENT PROCESS?YES LATEX QUESTIONNAIRE LATEX ALLERGY : HAVE YOU EVER DEVELOPED ANY TYPE OF REACTION AFTER HANDLING LATEX PRODUCTS SUCH RUBBER GLOVES, CONDOMS, DIAPHRAGMS, BALLOONS, SOCKS, OR UNDERWEAR?YES - PLEASE INDICATE :RUBBER GLOVES LATEX ALLERGY : HAVE YOU EVER DEVELOPED ANY TYPE OF REACTION DURING OR AFTER DENTAL APPOINTMENT, VAGINAL/RECTAL EXAMINATION, SURGICAL PROCEDURE, OR ANY OTHER EXPOSURE?NO LATEX RISK : HAVE YOU EVER HAD ANY DIFFICULTY BREATHING OR HIVES AFTER EATING OR HANDLING ANY FRUITS, OR VEGETABLES; SUCH KIWI, BANANAS, STONE FRUITS, OR CHESTNUTSNO LATEX RISK : DO YOU HAVE A PREVIOUS PERSONAL HISTORY OF MORE THAN NINE SURGERIES, SPINA BIFIDA, OR REPEATED CATHERTIZATIONS? NO LATEX RISK : ARE YOU FREQUENTLY EXPOSED TO LATEX PRODUCTS IN YOUR OCCUPATION?NO DATE ASKED : 08/09/2018 CAFFEINE 1-2/DAY. ADVANCE DIRECTIVE ADVANCE DIRECTIVE DISCUSSED WITH PATIENT:YES 07-17-18 PT. STATES SHE HAS HCP 1. ROBERT HAROILLING [phone] 2. DAVID MATHEW [phone] POA: [facility] WILL RESTORATION NO PENTECOSTAL BELIEFS THAT WOULD IMPACT HEALTH CARE. 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 HOSPITALIZATION/MAJOR DIAGNOSTIC PROCEDURE STATED ABOVE 2 CHILDBIRTH ASTHMA PNEUMONIA CHEST PAIN 10/2014 ER VISIT FOR SCIATIC PAIN- WHILE CAPE COD 10/2015 REVIEW OF SYSTEMS REVIEWED BY: PROVIDER: . CONSTITUTIONAL: ANY CHANGE IN YOUR MEDICAL CONDITION? NO . CHILLS NO . FEVER NO . INFECTION: DO YOU HAVE NEW INFECTIONS? NO . DO YOU HAVE HISTORY OF MRSA? NO . MUSCULOSKELETAL: ANY NEW PATTERNS OF PAIN OR NUMBNESS? NO . GASTROENTEROLOGY: ANY NEW CHANGE IN BOWEL CONTROL? NO . GENITOURINARY: ANY NEW CHANGE IN BLADDER CONTROL? NO . IS THERE A CHANCE YOU COULD BE ? NO . HEMATOLOGY/LYMPH: DO YOU TAKE ANY BLOOD THINNERS? (FOR EXAMPLE- COUMADIN, PLAVIX, AGGRENOX, PLATEL, PRADAXA, OR XARELTO) NO . WHEN WAS YOUR LAST DOSE? DATE: TIME: . NEUROLOGY: HAVE YOU FALLEN IN THE PAST 12 MONTHS? NO . ANY NEW EXTREMITY NUMBNESS OR WEAKNESS? NO . CARDIOLOGY: DO YOU HAVE A PACEMAKER OR DEFIBRILLATOR? NO . RESPIRATORY: HAVE YOU BEEN SICK IN THE PAST WEEK? NO . FEVER NO . FLU LIKE SYMPTOMS? NO . COUGH NO . INTEGUMENTARY: DO YOU HAVE ANY RASHES OR OPEN SORES? NO . ALLERGIC/IMMUNO: ARE YOU ALLERGIC TO IV DYE? NO . ANY NEW ALLERGIES? NO . PSYCHIATRIC: DO YOU HAVE THOUGHTS OF HURTING YOURSELF OR SOMEONE ELSE? NO . ARE YOU ABUSED, NEGLECTED, OR IN AN UNSAFE ENVIRONMENT? NO . ENDOCRINOLOGY: ARE YOU DIABETIC? YES, FSBS 111 AT 0600 . OTHER: DO YOU NEED ANY PRESCRIPTIONS? NO . IF YES, PLEASE LIST: ____ . ANY NEW PROBLEMS WITH YOUR MEDICATIONS? NO . WHEN DID YOU LAST EAT? ____08/15/18 1700 . WHEN DID YOU LAST DRINK? ____08/15/18 2100 . WHAT DID YOU LAST DRINK? ____WATER . NAME OF PERSON DRIVING YOU HOME? ____DAVID . DO YOU HAVE ANY OTHER QUESTIONS OR CONCERNS NO . VITAL SIGNS WT 186.2 LBS, HT 65 IN, BMI 30.98 INDEX, BP 134/65 MM HG, HR 102 /MIN, RR 18 /MIN, TEMP 96.6 F, OXYGEN SAT % 93, BLOOD GLUCOSE LEVEL 111 THIS AM, SAFE IN ENV? (Y/N) YES, NA INITIALS MP 1732, REVIEWED BY: SARIKA. ASSESSMENTS SACROILIITIS, NOT ELSEWHERE CLASSIFIED - M46.1 (PRIMARY) TREATMENT SACROILIITIS, NOT ELSEWHERE CLASSIFIED [facility] FLUORO GUIDANCE (PAIN)[id number] PROCEDURES PN SI PRE PROCEDURE DIAGNOSIS SACROILIITIS, SACROILIAC JOINT DYSFUNCTION POST PROCEDURE DIAGNOSIS SACROILIITIS, SACROILIAC JOINT DYSFUNCTION PROCEDURE BILATERAL SACROILIAC JOINT BLOCK SURGEON DR. NAVID GORDON COMMUNITY RESOURCE CONSULTANT NONE ANESTHESIA LOCAL PRE PROCEDURE NOTE PATIENT WITH HISTORY OF CHRONIC LOW BACK PAIN. I EVALUATED THE PATIENT AND REVIEWED THE CHART. I WENT OVER THE RISKS, ALTERNATIVES, AND BENEFITS ASSOCIATED WITH THIS PROCEDURE. THE PATIENT WOULD LIKE TO PROCEED AND GAVE CONSENT TO PERFORM THE PROCEDURE. THE PATIENT DENIES UNEXPLAINABLE WEIGHT LOSS, FEVER, CHILLS, OR NEW CHANGES IN URINARY OR BOWEL CONTROL DESCRIPTION OF PROCEDURE THE PATIENT WAS BROUGHT TO THE PROCEDURE ROOM AND PLACED IN THE PRONE POSITION. THE LUMBOSACRAL AREA WAS CLEANED WITH CHLORAPREP SOLUTION AND DRAPED ASEPTICALLY. THE PROCEDURE WAS DONE UNDER STERILE CONDITIONS. I CHECKED LATERALITY AND THE LEVEL WHERE THE PROCEDURE WAS GOING TO BE PERFORMED WITH THE PATIENT AND THE SUPPORTING STAFF AT THE MOMENT OF THE TIME OUT IN THE PROCEDURE ROOM. UNDER FLUOROSCOPIC GUIDANCE, TARGET POINT WAS SELECTED AT THE LOWER BORDER OF THE RIGHT AND LEFT SACROILIAC JOINT. TARGET POINT WAS SELECTED AFTER MEDIAL ROTATION AND TILT OF THE MAGNIFIER OF THE C-ARM. LIDOCAINE WAS USED TO NUMB THE SKIN AND SUBCUTANEOUS TISSUE BELOW IT. A SPINAL NEEDLE, 22-GAUGE, WAS ADVANCED UNDER FLUOROSCOPIC GUIDANCE AND FOLLOWING PATIENT FEEDBACK UNTIL THE TARGET AREA WAS TOUCHED. THE POSITION OF THE NEEDLE WAS VERIFIED WITH AP AND LATERAL VIEWS. AFTER PROPER POSITION OF THE NEEDLE WAS ACHIEVED, ISOVUE M DYE 30%, 0.25 ML, WAS INJECTED SHOWING SPREAD OF THE DYE. THEN, A SOLUTION OF 20 MG OF KENALOG WAS INJECTED IN RIGHT AND LEFT JOINT WITH 3 ML OF BUPIVACAINE 0.125%. THERE WAS NO EVIDENCE OF BLOOD, PARESTHESIA OR CEREBROSPINAL FLUID DURING THE PROCEDURE. THE PATIENT WAS SENT TO THE RECOVERY ROOM. THE PATIENT WAS MOVING THE EXTREMITIES AND DOING WELL. THERE WAS NO COMPLICATION DURING THE PROCEDURE. FLUOROSCOPY TIME WAS 21 SECONDS POST PROCEDURE NOTE THE PATIENT WILL BE SEEN IN A FOLLOW UP IN THE NEXT FEW WEEKS. INSTRUCTIONS WERE GIVEN, QUESTIONS WERE ANSWERED, AND THE PATIENT EXPRESSED UNDERSTANDING AND AGREED WITH THE PLAN. I, ALEXANDRO BERMUDEZ, DOCUMENTED THE ABOVE INFORMATION ACTING A SCRIBE FOR DR. GORDON. I HAVE REVIEWED THE ABOVE DOCUMENT, WRITTEN BY ALEXANDRO WINTER AND I VERIFY THAT IT IS ACCURATE. PROCEDURE CODES 6045F RADXPS IN END [id number] PXD [id number] INJECT SACROILIAC JOINT, MODIFIERS: 50 DISPOSITION & COMMUNICATION FOLLOW UP 3 WEEKS ELECTRONICALLY SIGNED BY NAVID GORDON MD, ON 08/27/2018 AT 06:44 AM EDT DISCLAIMER : THIS IS A VISIT SUMMARY EXTRACTED FROM THE [employer] CHART. IT IS NOT A COPY OF THE [employer] PROGRESS NOTE. MTDD
== END ==
LOC: M PAIN 09:45
PROVIDERS: ATTEND Anesthesiology
DX: G89.29 Other chronic pain (principal); M46.1 Sacroiliitis, not elsewhere classified; M53.88 Other specified dorsopathies, sacral and sacrococcygeal region; E11.9 Type 2 diabetes mellitus without complications; J45.909 Unspecified asthma, uncomplicated; G47.33 Obstructive sleep apnea (adult) (pediatric); M81.0 Age-related osteoporosis without current pathological fracture; Z79.899 Other long term (current) drug therapy; Z88.8 Allergy status to other drugs, medicaments and biological substances; Z88.2 Allergy status to sulfonamides; Z91.09 Other allergy status, other than to drugs and biological substances
CPT/HCPCS: G0260; J3301; Q9967

== ENCOUNTER → 2018-09-20 | Outpatient (CLI) | payer MEDICARE ==
[~2018-09-20] MED LIST changes: +ALB2.5NEB NEB; +DOXY100C37 PO; +PRED20TA PO; +TUSS1CAP5 PO
--- NOTE | 2018-09-20 18:25 | REP ---
Right hip: Two views: History: Right-sided greater trochanteric injection for pain. 6 seconds of fluoroscopy time is reported. Findings: A sequence of two last image hold fluoroscopically obtained spot radiographs document needle position associated with trochanteric hip injection procedure. Electronically Signed by Sotero Mcduffie MD 09/21/2018 10:04 A
--- NOTE | 2018-10-01 23:27 | ECWPNPC ---
PATIENT NAME: ZACKARY RAMOS : 1945 GENDER: FEMALE VISIT DATE: 09/20/2018 DISCHARGE DATE: 09/20/18 1507 VISIT LOCKED DATE TIME: PHYSICIAN: NAVID GORDON MD RESOURCE: NAVID GORDON MD REASON FOR APPOINTMENT 1. R. HIP INJECTION HISTORY OF PRESENT ILLNESS HISTORY OF PRESENT ILLNESS: PAIN THE PATIENT DESCRIBES THE PAIN... FALL RISK SCREENING: SCREENING :NO FALLS REPORTED IN THE LAST YEAR CURRENT MEDICATIONS TAKING SYSTANE 0.4-0.3 % SOLUTION 1 DROP INTO AFFECTED EYE NEEDED OPHTHALMIC DAILY NEEDED, NOTES: WEEKS AGO TAKING PROVENTIL HFA 108 (90 BASE) MCG/ACT AEROSOL SOLUTION 2 PUFFS ` INHALATION EVERY 4 HRS NEEDED FOR WHEEZING, NOTES: MONTHS AGO TAKING RHINOCORT AQUA 32 MCG/ACT SUSPENSION 2 PUFFS IN EACH NOSTRIL NASALLY ONCE A DAY NEEDED, NOTES: MONTHS AGO TAKING VITAMIN D3 2000 UNIT CAPSULE 1 TABLET ONCE A DAY, NOTES: A COUPLE DAYS TAKING CALCIUM 500 MG TABLET 2 TABLET WITH MEALS ORALLY TWICE A DAY, NOTES: A COUPLE DAYS TAKING ADVIL 200 MG TABLET 2 TABLETS WITH FOOD OR MILK NEEDED ORALLY EVERY 6 HOURS NEEDED, NOTES: 09-19-18 0900 TAKING TIZANIDINE HCL 2 MG TABLET 1 TABLET NEEDED ORALLY FOR SPASMS AND PAIN BEFORE BEDTIME MAY REPEAT IN 4 HRS MDD2, NOTES: A COUPLD DAYS TAKING ADVAIR DISKUS 500-50 MCG/DOSE AEROSOL POWDER BREATH ACTIVATED 1 PUFF INHALATION TE TWICE A DAY, NOTES: 09-20-18 TAKING EXCEDRIN MIGRAINE 250-250-65 MG TABLET 1 TAB ORALLY ONCE A DAY NEEDED, NOTES: NOT LATELY TAKING PROTONIX 40 MG TABLET DELAYED RELEASE 1 TABLET ORALLY ONCE A DAY, NOTES: 09-20-18 0800 TAKING MICROLET LANCETS - MISCELLANEOUS DIRECTED E11.9 DAILY TAKING VALTREX 500 MG TABLET 1 TABLET ORALLY ONCE A DAY, NOTES: WEEKS AGO TAKING JANUVIA 100 MG TABLET 1 TABLET ORALLY ONCE A DAY, NOTES: 09-20-18 0800 TAKING GLIPIZIDE 5 MG TABLET 1/2 TABLET ORALLY WTH SUPPER, NOTES: 09-19-18 2100 TAKING BLOOD GLUCOSE TEST - STRIP DIRECTED IN VITRO, DX: E11.9 DAILY NOT-TAKING VALTREX 1 GM TABLET DIRECTED ORALLY TAKE 2 TABS AT THE FIRST SIGN OF OUTBREAK AND REPEAT 2 TABS IN 12 HOURS NOT-TAKING ROSUVASTATIN CALCIUM 10 MG TABLET 1 TABLET ORALLY ONCE A DAY NOT-TAKING GENTAMICIN SULFATE 0.3 % SOLUTION 1 DROP INTO AFFECTED EYE OPHTHALMIC EVERY 4 HRS NOT-TAKING GENTAMICIN SULFATE 0.3 % OINTMENT 1 APPLICATION LEFT EYE OPHTHALMIC TWICE A DAY MEDICATION LIST REVIEWED AND RECONCILED WITH THE PATIENT PAST MEDICAL HISTORY ASTHMA DIABETES MELLITUS HYPERCHOLESTEROLEMIA ALLERGIC RHINITIS HISTORY OF ADENOMATOUS POLYP OF COLON CHRONIC ARTHRITIS DYSTHYMIA OBSTRUCTIVE SLEEP APNEA INSOMNIA UNSPECIFIED ABDOMINAL PAIN HERPES SIMPLEX DISEASE NIGHT SWEATS HISTORY OF SPINAL STENOSIS AGE-RELATED OSTEOPOROSIS WITHOUT CURRENT PATHOLOGICAL FRACTURE BACK PAIN ALLERGIES TORECAN: STIFF JAW - ALLERGY LEVAQUIN: RASH - ALLERGY IV TEQUIN: RASH - ALLERGY SULFACET-R: SEVERE HEADACHES - SIDE EFFECTS TAPES: RASH - ALLERGY DEMEROL: HALLUCINATIONS - SIDE EFFECTS METFORMIN HCL: EXCESSIVE NIGHT SWEATS,ELEVATED GLUCOSE - ALLERGY LEXAPRO: GROGGY - SIDE EFFECTS SULFA (FOR ALLERGY USE ONLY): SEVERE HESDACHE - ALLERGY REMERON: GROGGY - SIDE EFFECTS SURGICAL HISTORY TONSILLECTOMY CHILDHOOD D&C HYSTERECTOMY, TRANSVAGINAL FOR FIBROIDS 1989 RIGHT LOWER LOBE RESECTION FOR PULMONARY NODULE (FOUND TO BE TANJA) 1990 ENDOSCOPIC SINUS SURGERY 1997 BILATERAL BREAST REDUCTION 2006 COLONOSCOPY 11/2010 COLONOSCOPY AND UPPER ENDOSCOPIES-DR. KAYE 10/18/2016 L2-5 LAMENECTOMY AND FUSION-DR LUCAS, FOR SPINAL STENOSIS 11/11/2016 FAMILY HISTORY FATHER: , DIAGNOSED WITH DIABETES, HYPERTENSION, HEART DISEASE MOTHER: , OTHER, CANCER SIBLINGS: ALIVE DAUGHTER(S): ALIVE PATERNAL GRAND FATHER: PATERNAL GRAND MOTHER: MATERNAL GRAND FATHER: MATERNAL GRAND MOTHER: 2 SISTER(S) . 2DAUGHTER(S) . SISTER HAS DIABETES,ARTHRITIS\\\\NNOT SURE OF OTHER SISTERS HEALTH\\\\NFATHER HAD DIABETES AND HEART DISEASE. MOTHER OF PANCREATIC CANCER, APPARENTLY HAD COLON CANCER,AND WAS HYPOTHYROID. ONE OF TWO SISTERS IS HYPOTHYROID. , 1 MISCARRIAGE; ONE DAUGHTER HAS ASTHMA.\\\\N. SOCIAL HISTORY GENERAL: TOBACCO USE ARE YOU A:NONSMOKER HIV / HEP-C SCREENING HIV TEST OFFERED TO PATIENT:YES DATE OFFERED:08/02/2017 TEST ACCEPTED:NO HEP-C TEST OFFERED TO PATIENT:YES DATE OFFERED:08/02/2017 REASON:PATIENT DECLINED TEST ACCEPTED:NO REASON:PATIENT DECLINED BROCHURE PROVIDED TO PATIENTYES OTHERS AT HOME: NONE. HOUSING: OWNS HOME. DIET: NO CONCENTRATED SWEETS.. LANGUAGE SCOTTISH. DOMESTIC VIOLENCE DO YOU FEEL SAFE IN YOUR ENVIRONMENT?YES BMI CARE GOAL FOLLOW-UP ABOVE NORMAL BMI FOLLOW-UPWEIGHT MONITORING RECREATIONAL DRUG USE DENIES. EXERCISE: WALKS. 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, WALKER EMOTIONALLY IMPAIRED TEACHER NEEDED?NO PAIN CLINIC PFS, CLERGY, PUBLIC HEALTH REFERRALS HAS THE PATIENT BEEN EDUCATED REGARDING HIS/HER PLAN OF CARE?YES HAS THE PATIENT BEEN EDUCATED REGARDING PAIN, THE RISK FOR PAIN, THE IMPORTANCE OF EFFECTIVE PAIN MANAGEMENT, AND THE PAIN ASSESSMENT PROCESS?YES LATEX QUESTIONNAIRE LATEX ALLERGY : HAVE YOU EVER DEVELOPED ANY TYPE OF REACTION AFTER HANDLING LATEX PRODUCTS SUCH RUBBER GLOVES, CONDOMS, DIAPHRAGMS, BALLOONS, SOCKS, OR UNDERWEAR?YES LATEX ALLERGY : HAVE YOU EVER DEVELOPED ANY TYPE OF REACTION DURING OR AFTER DENTAL APPOINTMENT, VAGINAL/RECTAL EXAMINATION, SURGICAL PROCEDURE, OR ANY OTHER EXPOSURE?NO - PLEASE INDICATE :RUBBER GLOVES DATE ASKED : 08/09/2018 LATEX RISK : HAVE YOU EVER HAD ANY DIFFICULTY BREATHING OR HIVES AFTER EATING OR HANDLING ANY FRUITS, OR VEGETABLES; SUCH KIWI, BANANAS, STONE FRUITS, OR CHESTNUTSNO LATEX RISK : DO YOU HAVE A PREVIOUS PERSONAL HISTORY OF MORE THAN NINE SURGERIES, SPINA BIFIDA, OR REPEATED CATHERTIZATIONS? NO LATEX RISK : ARE YOU FREQUENTLY EXPOSED TO LATEX PRODUCTS IN YOUR OCCUPATION?NO CAFFEINE 1-2/DAY. ADVANCE DIRECTIVE ADVANCE DIRECTIVE DISCUSSED WITH PATIENT:YES PT. STATES SHE HAS HCP 1. ROBERT HAROILLING [phone] 2. DAVID MATHEW [phone] POA: [facility] WILL PRESYBETERIAN NO ANABAPTIST BELIEFS THAT WOULD IMPACT HEALTH CARE. 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 HOSPITALIZATION/MAJOR DIAGNOSTIC PROCEDURE STATED ABOVE 2 CHILDBIRTH ASTHMA PNEUMONIA CHEST PAIN 10/2014 ER VISIT FOR SCIATIC PAIN- WHILE CAPE COD 10/2015 REVIEW OF SYSTEMS REVIEWED BY: PROVIDER: . CONSTITUTIONAL: ANY CHANGE IN YOUR MEDICAL CONDITION? NO . CHILLS NO . FEVER NO . INFECTION: DO YOU HAVE NEW INFECTIONS? NO . DO YOU HAVE HISTORY OF MRSA? NO . MUSCULOSKELETAL: ANY NEW PATTERNS OF PAIN OR NUMBNESS? NO . GASTROENTEROLOGY: ANY NEW CHANGE IN BOWEL CONTROL? NO . GENITOURINARY: ANY NEW CHANGE IN BLADDER CONTROL? NO . IS THERE A CHANCE YOU COULD BE ? NO . HEMATOLOGY/LYMPH: DO YOU TAKE ANY BLOOD THINNERS? (FOR EXAMPLE- COUMADIN, PLAVIX, AGGRENOX, PLATEL, PRADAXA, OR XARELTO) NO . WHEN WAS YOUR LAST DOSE? DATE: TIME: . NEUROLOGY: HAVE YOU FALLEN IN THE PAST 12 MONTHS? NO . ANY NEW EXTREMITY NUMBNESS OR WEAKNESS? NO . CARDIOLOGY: DO YOU HAVE A PACEMAKER OR DEFIBRILLATOR? NO . RESPIRATORY: HAVE YOU BEEN SICK IN THE PAST WEEK? NO . FEVER NO . FLU LIKE SYMPTOMS? NO . COUGH NO . INTEGUMENTARY: DO YOU HAVE ANY RASHES OR OPEN SORES? NO . ALLERGIC/IMMUNO: ARE YOU ALLERGIC TO IV DYE? NO . ANY NEW ALLERGIES? NO . PSYCHIATRIC: DO YOU HAVE THOUGHTS OF HURTING YOURSELF OR SOMEONE ELSE? NO . ARE YOU ABUSED, NEGLECTED, OR IN AN UNSAFE ENVIRONMENT? NO . ENDOCRINOLOGY: ARE YOU DIABETIC? YES . OTHER: DO YOU NEED ANY PRESCRIPTIONS? NO . IF YES, PLEASE LIST: ____ . ANY NEW PROBLEMS WITH YOUR MEDICATIONS? NO . WHEN DID YOU LAST EAT? 09-19-18 1800 . WHEN DID YOU LAST DRINK? 09-20-18 0500 . WHAT DID YOU LAST DRINK? SIP OF WATER . NAME OF PERSON DRIVING YOU HOME? FRIEND . DO YOU HAVE ANY OTHER QUESTIONS OR CONCERNS NO . VITAL SIGNS WT 180.6 LBS, HT 65 IN, BMI 30.05 INDEX, BP 125/64 MM HG, HR 105 /MIN, RR 18 /MIN, TEMP 97.4 F, OXYGEN SAT % 97%, NA INITIALS SC 11:52, REVIEWED BY: LS. 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 POSTPROCEDURE DIAGNOSIS: BURSITIS AT THE RIGHT GREATER TROCHANTER OF THE FEMUR. PROCEDURE: INJECTION AT THE BURSA OF THE OF THE RIGHT GREATER TROCHANTER OF THE FEMUR UNDER FLUOROSCOPIC GUIDANCE. SURGEON: DR. NAVID GORDON DATA STORAGE SPECIALIST: NONEANESTHESIA: LOCAL. PREOPERATIVE NOTE: THE PATIENT HAS A HISTORY OF RIGHT HIP PAIN. I EVALUATED THE PATIENT AND REVIEWED THE CHART. WE BOTH AGREE ON INJECTING OVER THE BURSA OF THE RIGHT GREATER TROCHANTER OF THE FEMUR. I WENT THROUGH THE RISKS, ALTERNATIVES, AND BENEFITS ASSOCIATED WITH THIS PROCEDURE. THE PATIENT WOULD LIKE TO PROCEED AND GIVE CONSENT TO PERFORMED THE PROCEDURE. THE PATIENT DENIES UNEXPLAINABLE WEIGHT LOSS, FEVERS, CHILLS, OR CHANGES IN HIS URINARY OR BOWEL CONTROL. DESCRIPTION OF PROCEDURE: AFTER CONSENT WAS TAKEN, THE PATIENT WAS BROUGHT TO THE PROCEDURE ROOM AND PLACED IN THE LEFT LATERAL DECUBITUS POSITION. THE RIGHT HIP AREA WAS CLEANED WITH CHLORAPREP SOLUTION AND DRAPED ASEPTICALLY. THE PROCEDURE WAS DONE UNDER STERILE CONDITIONS. I CHECKED LATERALITY WITH THE PATIENT AND THE STAFF IN THE PROCEDURE ROOM AT THE MOMENT OF THE TIME OUT. UNDER FLUOROSCOPIC GUIDANCE, TARGET WAS SELECTED AT THE RIGHT GREATER TROCHANTER OF THE FEMUR. LIDOCAINE WAS USED TO NUMB THE SKIN AND THE SUBCUTANEOUS TISSUE BELOW IT. SPINAL NEEDLE, 22-GAUGE WAS ADVANCED UNDER FLUOROSCOPIC GUIDANCE AND FOLLOWING PATIENT FEEDBACK UNTIL THE TARGET WAS TOUCHED. POSITION OF THE NEEDLE WAS VERIFIED WITH AP AND LATERAL VIEWS. AFTER PROPER POSITION OF THE NEEDLE WAS ACHIEVED, ISOVUE M DYE, 30%, 0.25 ML WAS INJECTED SHOWING ADEQUATE SPREAD OF THE DYE. THEN A SOLUTION OF 20 ML OF BUPIVACAINE 0.25% AND KENALOG 40 MG WAS INJECTED. THERE WAS NO EVIDENCE OF BLOOD, PARESTHESIA, OR CEREBROSPINAL FLUID. THE PATIENT WAS SENT TO THE RECOVERY ROOM. THE PATIENT WAS MOVING THE EXTREMITIES AND DOING WELL. THERE WERE NO COMPLICATIONS DURING THE PROCEDURE. POSTOPERATIVE NOTE: I DISCUSSED ALTERNATIVES WITH THE PATIENT. WE WILL SEE THE PATIENT BACK IN SEVERAL WEEKS FOR REEVALUATION OF THE CASE. I AM LOOKING FOR LONG-LASTING PAIN RELIEF WITH THIS INTERVENTION. FLUOROSCOPIC TIME WAS 6 SECONDS. FURTHER RECOMMENDATIONS WILL BE DONE DEPENDING ON HOW THE PATIENT DOES. THERE WERE NO COMPLICATIONS. I, ALEXANDRO BERMUDEZ, DOCUMENTED THE ABOVE INFORMATION ACTING A SCRIBE FOR DR. GORDON. I HAVE REVIEWED THE ABOVE DOCUMENT, WRITTEN BY ALEXANDRO WINTER AND I VERIFY THAT IT IS ACCURATE. PROCEDURE CODES 6045F RADXPS IN END [id number] PXD [id number] NEEDLE LOCALIZATION BY XRAY, MODIFIERS: DRAIN/INJ JOINT/BURSA W/O US, MODIFIERS: RT DISPOSITION & COMMUNICATION FOLLOW UP 3 WEEKS ELECTRONICALLY SIGNED BY NAVID GORDON MD, MD ON 10/01/2018 AT 07:43 PM EDT DISCLAIMER : THIS IS A VISIT SUMMARY EXTRACTED FROM THE [employer] CHART. IT IS NOT A COPY OF THE [employer] PROGRESS NOTE. MTDD
== END ==
LOC: M PAIN 12:00
PROVIDERS: ATTEND Anesthesiology
DX: M70.61 Trochanteric bursitis, right hip (principal); J45.909 Unspecified asthma, uncomplicated; E78.00 Pure hypercholesterolemia, unspecified; F34.1 Dysthymic disorder; G47.33 Obstructive sleep apnea (adult) (pediatric); G47.00 Insomnia, unspecified; M81.0 Age-related osteoporosis without current pathological fracture; B00.9 Herpesviral infection, unspecified; Z98.1 Arthrodesis status; Z90.710 Acquired absence of both cervix and uterus; Z79.84 Long term (current) use of oral hypoglycemic drugs; Z79.899 Other long term (current) drug therapy; Z88.1 Allergy status to other antibiotic agents; Z88.2 Allergy status to sulfonamides; Z88.8 Allergy status to other drugs, medicaments and biological substances
CPT/HCPCS: 20610; 77002; J3301; Q9967

== ENCOUNTER → 2018-10-03 | Outpatient (CLI) | payer MEDICARE ==
[~2018-10-03] MED LIST changes: -BUPIVACAINE HCL 0.25% 30 ML VIAL As Ordered ONE; -ISOVUE-M 300 61% 15ML VIAL (Q9967) As Ordered ONE; -LIDOCAINE 1% SDV INJ 30 ML VIAL As Ordered ONE; -TRIAMCINOLONE ACETONIDE SUSP 40 MG/ML VIAL (J3301) As Ordered ONE
--- NOTE | 2018-10-13 00:21 | ECWPNPC ---
PATIENT NAME: ZACKARY RAMOS : 1945 GENDER: FEMALE VISIT DATE: 10/03/2018 DISCHARGE DATE: 10/03/18 1619 VISIT LOCKED DATE TIME: PHYSICIAN: NAVID GORDON MD RESOURCE: NAVID GORDON MD REASON FOR APPOINTMENT 1. POST PROC PER DR Molina HISTORY OF PRESENT ILLNESS HISTORY OF PRESENT ILLNESS: PAIN THE PATIENT DESCRIBES THE PAIN... 73 YEAR OLD FEMALE PATIENT WITH A HISTORY OF CHRONIC LOW BACK PAIN. THE PATIENT DESCRIBES THE PAIN ACHING, STABBING, SHOOTING, TENDER, SHARP, NIGHTLY, AND CONTINUOUS WITH A PAIN SCORE OF 3-7/10 DEPENDING ON PHYSICAL ACTIVITY. THE PATIENT SAYS HER PAIN INCREASES WITH ACTIVITIES AND AFFECTS HER ABILITY TO PERFORM HER DAILY ACTIVITIES, SUCH COOKING, CLEANING, AND GROCERY SHOPPING. THE PATIENT HAS HAD SEVERAL INJECTIONS DONE IN THE PAST HERE, INCLUDING HIP AND SACROILIAC JOINT INJECTIONS, WHICH SHE SAYS HAS HELPED HER WITH PAIN RELIEF BUT SHE STILL HAD SOME LEVEL OF DISCOMFORT AFTERWARDS ESPECIALLY DURING ACTIVITIES. PATIENT DENIES UNEXPLAINABLE WEIGHT LOSS, FEVER, CHILLS, NEW CHANGES ON HER URINARY OR BOWEL CONTROL. FALL RISK SCREENING: SCREENING :NO FALLS REPORTED IN THE LAST YEAR CURRENT MEDICATIONS TAKING SYSTANE 0.4-0.3 % SOLUTION 1 DROP INTO AFFECTED EYE NEEDED OPHTHALMIC DAILY NEEDED, NOTES: WEEKS AGO TAKING PROVENTIL HFA 108 (90 BASE) MCG/ACT AEROSOL SOLUTION 2 PUFFS ` INHALATION EVERY 4 HRS NEEDED FOR WHEEZING, NOTES: MONTHS AGO TAKING RHINOCORT AQUA 32 MCG/ACT SUSPENSION 2 PUFFS IN EACH NOSTRIL NASALLY ONCE A DAY NEEDED, NOTES: MONTHS AGO TAKING VITAMIN D3 2000 UNIT CAPSULE 1 TABLET ONCE A DAY, NOTES: A COUPLE DAYS TAKING CALCIUM 500 MG TABLET 2 TABLET WITH MEALS ORALLY TWICE A DAY, NOTES: A COUPLE DAYS TAKING ADVIL 200 MG TABLET 2 TABLETS WITH FOOD OR MILK NEEDED ORALLY EVERY 6 HOURS NEEDED, NOTES: 09-19-18 0900 TAKING TIZANIDINE HCL 2 MG TABLET 1 TABLET NEEDED ORALLY FOR SPASMS AND PAIN BEFORE BEDTIME MAY REPEAT IN 4 HRS MDD2, NOTES: A COUPLD DAYS TAKING ADVAIR DISKUS 500-50 MCG/DOSE AEROSOL POWDER BREATH ACTIVATED 1 PUFF INHALATION TE TWICE A DAY, NOTES: 09-20-18 TAKING EXCEDRIN MIGRAINE 250-250-65 MG TABLET 1 TAB ORALLY ONCE A DAY NEEDED, NOTES: NOT LATELY TAKING PROTONIX 40 MG TABLET DELAYED RELEASE 1 TABLET ORALLY ONCE A DAY, NOTES: 09-20-18 0800 TAKING MICROLET LANCETS - MISCELLANEOUS DIRECTED E11.9 DAILY TAKING VALTREX 500 MG TABLET 1 TABLET ORALLY ONCE A DAY, NOTES: WEEKS AGO TAKING JANUVIA 100 MG TABLET 1 TABLET ORALLY ONCE A DAY, NOTES: 09-20-18 0800 TAKING GLIPIZIDE 5 MG TABLET 1/2 TABLET ORALLY WTH SUPPER, NOTES: 09-19-18 2100 TAKING BLOOD GLUCOSE TEST - STRIP DIRECTED IN VITRO, DX: E11.9 DAILY NOT-TAKING VALTREX 1 GM TABLET DIRECTED ORALLY TAKE 2 TABS AT THE FIRST SIGN OF OUTBREAK AND REPEAT 2 TABS IN 12 HOURS NOT-TAKING ROSUVASTATIN CALCIUM 10 MG TABLET 1 TABLET ORALLY ONCE A DAY NOT-TAKING GENTAMICIN SULFATE 0.3 % SOLUTION 1 DROP INTO AFFECTED EYE OPHTHALMIC EVERY 4 HRS NOT-TAKING GENTAMICIN SULFATE 0.3 % OINTMENT 1 APPLICATION LEFT EYE OPHTHALMIC TWICE A DAY MEDICATION LIST REVIEWED AND RECONCILED WITH THE PATIENT PAST MEDICAL HISTORY ASTHMA DIABETES MELLITUS HYPERCHOLESTEROLEMIA ALLERGIC RHINITIS HISTORY OF ADENOMATOUS POLYP OF COLON CHRONIC ARTHRITIS DYSTHYMIA OBSTRUCTIVE SLEEP APNEA INSOMNIA UNSPECIFIED ABDOMINAL PAIN HERPES SIMPLEX DISEASE NIGHT SWEATS HISTORY OF SPINAL STENOSIS AGE-RELATED OSTEOPOROSIS WITHOUT CURRENT PATHOLOGICAL FRACTURE BACK PAIN ALLERGIES TORECAN: STIFF JAW - ALLERGY LEVAQUIN: RASH - ALLERGY IV TEQUIN: RASH - ALLERGY SULFACET-R: SEVERE HEADACHES - SIDE EFFECTS TAPES: RASH - ALLERGY DEMEROL: HALLUCINATIONS - SIDE EFFECTS METFORMIN HCL: EXCESSIVE NIGHT SWEATS,ELEVATED GLUCOSE - ALLERGY LEXAPRO: GROGGY - SIDE EFFECTS SULFA (FOR ALLERGY USE ONLY): SEVERE HESDACHE - ALLERGY REMERON: GROGGY - SIDE EFFECTS SURGICAL HISTORY TONSILLECTOMY CHILDHOOD D&C HYSTERECTOMY, TRANSVAGINAL FOR FIBROIDS 1989 RIGHT LOWER LOBE RESECTION FOR PULMONARY NODULE (FOUND TO BE TANJA) 1990 ENDOSCOPIC SINUS SURGERY 1997 BILATERAL BREAST REDUCTION 2006 COLONOSCOPY 11/2010 COLONOSCOPY AND UPPER ENDOSCOPIES-DR. KAYE 10/18/2016 L2-5 LAMENECTOMY AND FUSION-DR LUCAS, FOR SPINAL STENOSIS 11/11/2016 FAMILY HISTORY FATHER: , DIAGNOSED WITH DIABETES, HYPERTENSION, HEART DISEASE MOTHER: , OTHER, CANCER SIBLINGS: ALIVE DAUGHTER(S): ALIVE PATERNAL GRAND FATHER: PATERNAL GRAND MOTHER: MATERNAL GRAND FATHER: MATERNAL GRAND MOTHER: 2 SISTER(S) . 2DAUGHTER(S) . SISTER HAS DIABETES,ARTHRITIS\\\\NNOT SURE OF OTHER SISTERS HEALTH\\\\NFATHER HAD DIABETES AND HEART DISEASE. MOTHER OF PANCREATIC CANCER, APPARENTLY HAD COLON CANCER,AND WAS HYPOTHYROID. ONE OF TWO SISTERS IS HYPOTHYROID. , 1 MISCARRIAGE; ONE DAUGHTER HAS ASTHMA.\\\\N. SOCIAL HISTORY GENERAL: TOBACCO USE ARE YOU A:NONSMOKER HIV / HEP-C SCREENING HIV TEST OFFERED TO PATIENT:YES DATE OFFERED:08/02/2017 TEST ACCEPTED:NO HEP-C TEST OFFERED TO PATIENT:YES DATE OFFERED:08/02/2017 REASON:PATIENT DECLINED TEST ACCEPTED:NO REASON:PATIENT DECLINED BROCHURE PROVIDED TO PATIENTYES OTHERS AT HOME: NONE. HOUSING: OWNS HOME. DIET: NO CONCENTRATED SWEETS.. LANGUAGE SINHALA. DOMESTIC VIOLENCE DO YOU FEEL SAFE IN YOUR ENVIRONMENT?YES BMI CARE GOAL FOLLOW-UP ABOVE NORMAL BMI FOLLOW-UPWEIGHT MONITORING RECREATIONAL DRUG USE DENIES. EXERCISE: WALKS. LEARNING BARRIERS / SPECIAL NEEDS CHANGE FROM LAST VISIT?NO BARRIERS TO LEARNING?NO HEARING IMPAIRED?NO VISION IMPAIRED?YES COGNITIVELY IMPAIRED?NO :CORRECTIVE LENSES READING GLASSES READINESS TO LEARN?YES LEARNING PREFERENCES?NO LEARNING CAPABILITIES PRESENT?YES EMOTIONAL BARRIERS?NO SPECIAL DEVICES?YES :JACQUELINE LUIS HEBREW TEACHER NEEDED?NO PAIN CLINIC PFS, CLERGY, PUBLIC HEALTH REFERRALS HAS THE PATIENT BEEN EDUCATED REGARDING HIS/HER PLAN OF CARE?YES HAS THE PATIENT BEEN EDUCATED REGARDING PAIN, THE RISK FOR PAIN, THE IMPORTANCE OF EFFECTIVE PAIN MANAGEMENT, AND THE PAIN ASSESSMENT PROCESS?YES LATEX QUESTIONNAIRE LATEX ALLERGY : HAVE YOU EVER DEVELOPED ANY TYPE OF REACTION AFTER HANDLING LATEX PRODUCTS SUCH RUBBER GLOVES, CONDOMS, DIAPHRAGMS, BALLOONS, SOCKS, OR UNDERWEAR?YES LATEX ALLERGY : HAVE YOU EVER DEVELOPED ANY TYPE OF REACTION DURING OR AFTER DENTAL APPOINTMENT, VAGINAL/RECTAL EXAMINATION, SURGICAL PROCEDURE, OR ANY OTHER EXPOSURE?NO - PLEASE INDICATE :RUBBER GLOVES DATE ASKED : 08/09/2018 LATEX RISK : HAVE YOU EVER HAD ANY DIFFICULTY BREATHING OR HIVES AFTER EATING OR HANDLING ANY FRUITS, OR VEGETABLES; SUCH KIWI, BANANAS, STONE FRUITS, OR CHESTNUTSNO LATEX RISK : DO YOU HAVE A PREVIOUS PERSONAL HISTORY OF MORE THAN NINE SURGERIES, SPINA BIFIDA, OR REPEATED CATHERTIZATIONS? NO LATEX RISK : ARE YOU FREQUENTLY EXPOSED TO LATEX PRODUCTS IN YOUR OCCUPATION?NO CAFFEINE 1-2/DAY. ADVANCE DIRECTIVE ADVANCE DIRECTIVE DISCUSSED WITH PATIENT:YES PT. STATES SHE HAS HCP 1. ROBERT BARRAGAN [phone] 2. DAVID MATHEW [phone] POA: ROBERT BARRAGAN LIVING WILL BAPTIST NO PRESYBETERIAN BELIEFS THAT WOULD IMPACT HEALTH CARE. 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 SEXUAL HX HAD SEX IN THE LAST 12 MONTHS (VAGINAL, ORAL, OR ANAL)?NO HAVE YOU EVER HAD AN STD?NO REVIEWED WITH PATIENT 08/16/18 1012 JSREVIEWED WITH PATIENT 10/03/18 1545 LAS. HOSPITALIZATION/MAJOR DIAGNOSTIC PROCEDURE STATED ABOVE 2 CHILDBIRTH ASTHMA PNEUMONIA CHEST PAIN 10/2014 ER VISIT FOR SCIATIC PAIN- WHILE CAPE COD 10/2015 REVIEW OF SYSTEMS REVIEWED BY: PROVIDER: NAVID GORDON MD . CONSTITUTIONAL: ANY CHANGE IN YOUR MEDICAL CONDITION? NO . CHILLS NO . FEVER NO . INFECTION: DO YOU HAVE NEW INFECTIONS? NO . DO YOU HAVE HISTORY OF MRSA? NO . MUSCULOSKELETAL: ANY NEW PATTERNS OF PAIN OR NUMBNESS? PT REPORTS AN INCREASE IN PAIN IN HIPS/LOW BACK, BELIEVES IT TO BE RELATED TO INCREASED ACTIVITIES. . GASTROENTEROLOGY: ANY NEW CHANGE IN BOWEL CONTROL? NO . GENITOURINARY: ANY NEW CHANGE IN BLADDER CONTROL? NO . IS THERE A CHANCE YOU COULD BE ? NO . HEMATOLOGY/LYMPH: DO YOU TAKE ANY BLOOD THINNERS? (FOR EXAMPLE- COUMADIN, PLAVIX, AGGRENOX, PLATEL, PRADAXA, OR XARELTO) NO . WHEN WAS YOUR LAST DOSE? DATE: TIME: . NEUROLOGY: HAVE YOU FALLEN IN THE PAST 12 MONTHS? NO . ANY NEW EXTREMITY NUMBNESS OR WEAKNESS? NO . CARDIOLOGY: DO YOU HAVE A PACEMAKER OR DEFIBRILLATOR? NO . RESPIRATORY: HAVE YOU BEEN SICK IN THE PAST WEEK? NO . FEVER NO . FLU LIKE SYMPTOMS? NO . COUGH NO . INTEGUMENTARY: DO YOU HAVE ANY RASHES OR OPEN SORES? NO . ALLERGIC/IMMUNO: ARE YOU ALLERGIC TO IV DYE? NO . ANY NEW ALLERGIES? NO . PSYCHIATRIC: DO YOU HAVE THOUGHTS OF HURTING YOURSELF OR SOMEONE ELSE? NO . ARE YOU ABUSED, NEGLECTED, OR IN AN UNSAFE ENVIRONMENT? NO . ENDOCRINOLOGY: ARE YOU DIABETIC? YES . OTHER: DO YOU NEED ANY PRESCRIPTIONS? NO . IF YES, PLEASE LIST: ____ . ANY NEW PROBLEMS WITH YOUR MEDICATIONS? NO . WHEN DID YOU LAST EAT? ____ . WHEN DID YOU LAST DRINK? ____ . WHAT DID YOU LAST DRINK? ____ . NAME OF PERSON DRIVING YOU HOME? ____ . DO YOU HAVE ANY OTHER QUESTIONS OR CONCERNS NO . VITAL SIGNS WT 183.8 LBS, HT 65 IN, BMI 30.58 INDEX, BP 135/67 MM HG, HR 105 /MIN, RR 18 /MIN, TEMP 97.3 F, OXYGEN SAT % 97%, SAFE IN ENV? (Y/N) YES, NA INITIALS SC 15:37, REVIEWED BY: CADEN. EXAMINATION GENERAL EXAMINATION: PATIENT IS ALERT O X 3 AND COOPERATIVE. TENDERNESS IN THE RIGHT LOW BACK AREA. ASSESSMENTS LOW BACK PAIN - M54.5 (PRIMARY) OTHER CHRONIC PAIN - G89.29 SACROILIITIS, NOT ELSEWHERE CLASSIFIED - M46.1 TREATMENT LOW BACK PAIN CLINICAL NOTES: WE DISCUSSED SEVERAL ISSUES WITH MS. RAMOS'S PAIN MANAGEMENT CASE. AT THE LAST VISIT WE DISCUSSED TRYING FACET BLOCKS OR A SACROILIAC JOINT BLOCK AND THE PATIENT SAID SHE MAY CONSIDER IT IN THE FUTURE. THE PATIENT HAS RECEIVED SOME IMPROVEMENT WITH THE PREVIOUS INJECTIONS PERFORMED, HOWEVER FOR NOW THE PATIENT WOULD LIKE TO HOLD ON INJECTION THERAPY AND CONCENTRATE ON MEDICATION MANAGEMENT. I WILL START THE PATIENT ON CYMBALTA 20 MG ONCE DAILY AT THE END OF THE DAY FOR A WEEK TO SEE IF IT WILL HELP WITH HER NEUROMUSCULAR PAIN. THE PATIENT WAS ADVISED TO CALL FOR A MONTH SUPPLY REFILL IF THE MEDICATION HELPS AND SHE DOES NOT EXPERIENCE ANY ADVERSE SIDE EFFECTS. IF THE MEDICATION HELPS THE PATIENT, I PLAN TO CONTINUE INCREASING THE CYMBALTA. THE PATIENT WILL FOLLOW UP ON 10/23/2018. INSTRUCTIONS WERE GIVEN, QUESTIONS WERE ANSWERED, PATIENT REPORTS UNDERSTANDING AND AGREES WITH THE PLAN. I, JACINTA LENNON, DOCUMENTED THE ABOVE INFORMATION ACTING A SCRIBE FOR DR. GORDON. I HAVE REVIEWED THE ABOVE DOCUMENT, WRITTEN BY JACINTA WINTER AND I VERIFY THAT IT IS ACCURATE. . OTHERS START DULOXETINE HCL CAPSULE DELAYED RELEASE PARTICLES, 20 MG, 1 CAPSULE WITH FOOD, ORALLY FOR PAIN, DAILY, 7 DAYS, 7 CAPSULE, REFILLS 0 PREVENTIVE MEDICINE PAIN CLINIC TEACHING: MEDICATIONS PRINTED AND REVIEWED INFORMATION ON NEW MEDICATION, CYMBALTA, WITH PATIENT. PATIENT VERBALIZED AN UNDERSTANDING. NAGA SEARS Hannah 10/03/2018 4:16:59 PM > . PROCEDURE CODES FA211 ESTABILISHED PATIENT [facility] CHARGE G8427 CURRENT MEDS W/DOSAGES DOCUMENTED G8730 PAIN ASSESS POS TOOL F/U PLAN DOC DISPOSITION & COMMUNICATION FOLLOW UP NEXT F/U WITH DR. Molina IS ON 10/23 ALREADY SCHEDULED ELECTRONICALLY SIGNED BY NAVID GORDON MD, ON 10/12/2018 AT 01:51 PM EDT DISCLAIMER : THIS IS A VISIT SUMMARY EXTRACTED FROM THE Client [employer] CHART. IT IS NOT A COPY OF THE Client [employer] PROGRESS NOTE. MTDD
== END ==
LOC: M PAIN 15:30
PROVIDERS: ATTEND Anesthesiology
DX: G89.29 Other chronic pain (principal); M54.5 Low back pain; M46.1 Sacroiliitis, not elsewhere classified; J45.909 Unspecified asthma, uncomplicated; E11.9 Type 2 diabetes mellitus without complications; E78.00 Pure hypercholesterolemia, unspecified; Z86.010 Personal history of colon polyps; F34.1 Dysthymic disorder; M19.90 Unspecified osteoarthritis, unspecified site; G47.00 Insomnia, unspecified; G47.33 Obstructive sleep apnea (adult) (pediatric); M81.0 Age-related osteoporosis without current pathological fracture; Z79.84 Long term (current) use of oral hypoglycemic drugs; Z79.899 Other long term (current) drug therapy; Z90.710 Acquired absence of both cervix and uterus; Z88.1 Allergy status to other antibiotic agents; Z88.2 Allergy status to sulfonamides; Z88.8 Allergy status to other drugs, medicaments and biological substances; Z91.048 Other nonmedicinal substance allergy status

== ENCOUNTER 2018-10-06 06:34 | Emergency (ER) | payer MEDICARE ==
[~2018-10-06] VITALS: Ht 165.1 cm; Wt 79.5 kg
[2018-10-06 06:34] VITALS: BP 137/70
[~2018-10-06 06:34] MED LIST changes: -ALB2.5NEB NEB; -DOXY100C37 PO; -PRED20TA PO; -TUSS1CAP5 PO
[2018-10-06] MEDS ORDERED: methylPREDNISolone INJ 125 MG/2 ML VIAL (J2930) IV ONE (07:45)
[2018-10-06 07:49] LABS: VENOUS BASE EXCESS -0.2 (-2.0-2.0); VENOUS O2 SATURATION 79.4 % (60.0-80.0); VENOUS PARTIAL PRESSURE CO2 43.1 mmHg (38.0-50.0); VENOUS PARTIAL PRESSURE O2 43.5 mmHg (30.0-50.0); VENOUS PH 7.382 UNITS (7.330-7.430); VENOUS STANDARD HCO3 23.9 MEQ/L; VENOUS TOTAL CO2 26.4 MEQ/L (24.0-28.0)
[2018-10-06 07:55] LABS: BASO # 0.1 10^3/uL (0.0-0.2); BASO % 0.5 % (0.0-1.0); EOS # 0.1 10^3/uL (0.0-0.50); EOS % 1.3 % (0.0-3.0); HEMATOCRIT 40.3 % (36.0-47.0); HEMOGLOBIN 12.8 g/dl (12.0-15.5); LYMPH # 1.6 10^3/uL (1.5-4.5); LYMPH % 16.4 % (24.0-44.0); MEAN CORPUSCULAR HEMOGLOBIN 28.3 pg (27.0-33.0); MEAN CORPUSCULAR HGB CONC 31.8 g/dl (32.0-36.5); MONO # 0.9 10^3/uL (0.0-0.8); NEUTROPHILS % 71.8 % (36.0-66.0); PLATELET COUNT, AUTOMATED 238 10^3/uL (150-450); RED BLOOD COUNT 4.53 10^6/uL (4.00-5.40); WHITE BLOOD COUNT 9.7 10^3/uL (4.0-10.0)
[2018-10-06] MEDS: IPRATROPIUM 0.5MG/ALBUTEROL 2.5MG INH SOL UD 3ML (DUONEB)(J7620) NEB SCH ×3 (07:55→08:16)
[2018-10-06 08:07] LABS: INR 0.98; PROTHROMBIN TIME 12.7 SECONDS (11.8-14.0)
--- NOTE | 2018-10-06 08:24 | REP ---
Clinical: Cough and dyspnea. Comparison: 06/23/2016. Findings: Mediastinum and cardiac silhouette are within normal limits and stable. Right basilar opacity with blunting of the diaphragmatic surface and costophrenic angle suggests chronic change although subtle superimposed acute pleural reaction cannot be excluded. Presumed asymmetric nipple shadow overlying the periphery of the left lower lung zone. Remainder of the examination is clear/normal. Impression: 1. Chronic changes at the right base. Subtle superimposed acute process cannot be excluded. 2. Presumed asymmetric nipple shadow overlying the periphery of the left lower lung zone. Electronically Signed by Bucky Magaña MD 10/06/2018 08:16 A
[2018-10-06 08:34] LABS: ALBUMIN 3.9 GM/DL (3.2-5.2); ALT/SGPT 25 U/L (12-78); BILIRUBIN,DIRECT 0.2 MG/DL (0.0-0.2); BILIRUBIN,TOTAL 0.6 MG/DL (0.2-1.0); BLOOD UREA NITROGEN 14 MG/DL (7-18); CALCIUM LEVEL 8.8 MG/DL (8.8-10.2); CARBON DIOXIDE LEVEL 26 MEQ/L (21-32); CHLORIDE LEVEL 109 MEQ/L (98-107); CK-MB VALUE MASS 2.1 NG/ML (<3.6); CPK CREATINE PHOSPHOKINASE 191 U/L (26-192); CREATININE FOR GFR 0.81 MG/DL (0.55-1.30); GLOMERULAR FILTRATION RATE > 60.0 (>39); GLUCOSE, FASTING 158 MG/DL (70-100); NT-PRO BNP 65 PG/ML (<450); POTASSIUM SERUM 4.1 MEQ/L (3.5-5.1); SODIUM LEVEL 143 MEQ/L (136-145); TROPONIN I < 0.02 NG/ML (< 0.10)
[2018-10-06] MEDS ORDERED: PRED20TA PO (09:04)
[2018-10-06] MEDS ORDERED: TUSS1CAP5 PO (09:05)
[2018-10-06] MEDS ORDERED: DOXY100C37 PO (09:06)
[2018-10-06] MEDS ORDERED: ALB2.5NEB NEB (09:06)
--- NOTE | 2018-10-06 17:37 | ECGEPIP ---
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
== END 2018-10-06 10:01 | disposition home or self-care (01) ==
LOC: M ED 06:34
DX: J45.901 Unspecified asthma with (acute) exacerbation (principal); E11.9 Type 2 diabetes mellitus without complications; K21.9 Gastro-esophageal reflux disease without esophagitis; Z88.2 Allergy status to sulfonamides; Z88.5 Allergy status to narcotic agent; Z88.1 Allergy status to other antibiotic agents; Z88.8 Allergy status to other drugs, medicaments and biological substances; Z79.899 Other long term (current) drug therapy; Z79.51 Long term (current) use of inhaled steroids; Z79.84 Long term (current) use of oral hypoglycemic drugs
CPT/HCPCS: 71045; 80048; 80076; 82550; 82553; 82803; 83605; 83880; 84443; 84484; 85025; 85610; 87040; 93005; 93041; 94640; 96374; 99284; J2930

== ENCOUNTER → 2018-10-23 | Outpatient (CLI) | payer MEDICARE ==
[~2018-10-23] MED LIST changes: +ALB2.5NEB NEB; +DOXY100C37 PO; +PRED20TA PO; +TUSS1CAP5 PO
--- NOTE | 2018-11-01 01:25 | ECWPNPC ---
PATIENT NAME: ZACKARY RAMOS : 1945 GENDER: FEMALE VISIT DATE: 10/23/2018 DISCHARGE DATE: 10/23/18 1613 VISIT LOCKED DATE TIME: PHYSICIAN: NAVID GORDON MD RESOURCE: NAVID GORDON MD REASON FOR APPOINTMENT 1. POST PROC HISTORY OF PRESENT ILLNESS HISTORY OF PRESENT ILLNESS: PAIN THE PATIENT DESCRIBES THE PAIN... 73 YEAR OLD FEMALE PATIENT WITH A HISTORY OF CHRONIC LOW BACK PAIN. THE PATIENT DESCRIBES THE PAIN TENDER, SHARP, AND CONTINUOUS WITH A PAIN SCORE OF 2-5/10 DEPENDING ON PHYSICAL ACTIVITY. THE PATIENT STATES HER PAIN IS IN HER LOW BACK NEAR THE SACROILIAC JOINTS, AND THAT THE PAIN IS WORSE ON THE RIGHT SIDE. THE PATIENT WAS STARTED ON CYMBALTA 20 MG AT HER LAST VISIT, WHICH SHE SAYS SHE BEGAN EXPERIENCING MEDICAL ISSUES FROM THE MEDICATION, SUCH EXACERBATION OF ASTHMA. SHE CHOSE TO STOP THE MEDICATION. THE PATIENT SAYS SHE TRIED NEURONTIN, HOWEVER IT DID NOT HELP WITH HER PAIN. PATIENT DENIES UNEXPLAINABLE WEIGHT LOSS, FEVER, CHILLS, NEW CHANGES ON HER URINARY OR BOWEL CONTROL. FALL RISK SCREENING: SCREENING :NO FALLS REPORTED IN THE LAST YEAR CURRENT MEDICATIONS TAKING DULOXETINE HCL 20 MG CAPSULE DELAYED RELEASE PARTICLES 1 CAPSULE WITH FOOD ORALLY FOR PAIN DAILY, NOTES: HASN'T STARTED TAKING SYSTANE 0.4-0.3 % SOLUTION 1 DROP INTO AFFECTED EYE NEEDED OPHTHALMIC DAILY NEEDED, NOTES: WEEKS AGO TAKING PROVENTIL HFA 108 (90 BASE) MCG/ACT AEROSOL SOLUTION 2 PUFFS ` INHALATION EVERY 4 HRS NEEDED FOR WHEEZING, NOTES: MONTHS AGO TAKING RHINOCORT AQUA 32 MCG/ACT SUSPENSION 2 PUFFS IN EACH NOSTRIL NASALLY ONCE A DAY NEEDED, NOTES: MONTHS AGO TAKING VITAMIN D3 2000 UNIT CAPSULE 1 TABLET ONCE A DAY, NOTES: A COUPLE DAYS TAKING CALCIUM 500 MG TABLET 2 TABLET WITH MEALS ORALLY TWICE A DAY, NOTES: A COUPLE DAYS TAKING ADVIL 200 MG TABLET 2 TABLETS WITH FOOD OR MILK NEEDED ORALLY EVERY 6 HOURS NEEDED, NOTES: 09-19-18 0900 TAKING TIZANIDINE HCL 2 MG TABLET 1 TABLET NEEDED ORALLY FOR SPASMS AND PAIN BEFORE BEDTIME MAY REPEAT IN 4 HRS MDD2, NOTES: A COUPLD DAYS TAKING ADVAIR DISKUS 500-50 MCG/DOSE AEROSOL POWDER BREATH ACTIVATED 1 PUFF INHALATION TE TWICE A DAY, NOTES: 09-20-18 TAKING EXCEDRIN MIGRAINE 250-250-65 MG TABLET 1 TAB ORALLY ONCE A DAY NEEDED, NOTES: NOT LATELY TAKING PROTONIX 40 MG TABLET DELAYED RELEASE 1 TABLET ORALLY ONCE A DAY, NOTES: 09-20-18 0800 TAKING MICROLET LANCETS - MISCELLANEOUS DIRECTED E11.9 DAILY TAKING VALTREX 500 MG TABLET 1 TABLET ORALLY ONCE A DAY, NOTES: WEEKS AGO TAKING JANUVIA 100 MG TABLET 1 TABLET ORALLY ONCE A DAY, NOTES: 09-20-18 0800 TAKING GLIPIZIDE 5 MG TABLET 1/2 TABLET ORALLY WTH SUPPER, NOTES: 09-19-18 2100 TAKING BLOOD GLUCOSE TEST - STRIP DIRECTED IN VITRO, DX: E11.9 DAILY NOT-TAKING VALTREX 1 GM TABLET DIRECTED ORALLY TAKE 2 TABS AT THE FIRST SIGN OF OUTBREAK AND REPEAT 2 TABS IN 12 HOURS NOT-TAKING ROSUVASTATIN CALCIUM 10 MG TABLET 1 TABLET ORALLY ONCE A DAY NOT-TAKING GENTAMICIN SULFATE 0.3 % SOLUTION 1 DROP INTO AFFECTED EYE OPHTHALMIC EVERY 4 HRS NOT-TAKING GENTAMICIN SULFATE 0.3 % OINTMENT 1 APPLICATION LEFT EYE OPHTHALMIC TWICE A DAY MEDICATION LIST REVIEWED AND RECONCILED WITH THE PATIENT PAST MEDICAL HISTORY ASTHMA DIABETES MELLITUS HYPERCHOLESTEROLEMIA ALLERGIC RHINITIS HISTORY OF ADENOMATOUS POLYP OF COLON CHRONIC ARTHRITIS DYSTHYMIA OBSTRUCTIVE SLEEP APNEA INSOMNIA UNSPECIFIED ABDOMINAL PAIN HERPES SIMPLEX DISEASE NIGHT SWEATS HISTORY OF SPINAL STENOSIS AGE-RELATED OSTEOPOROSIS WITHOUT CURRENT PATHOLOGICAL FRACTURE BACK PAIN ALLERGIES TORECAN: STIFF JAW - ALLERGY LEVAQUIN: RASH - ALLERGY IV TEQUIN: RASH - ALLERGY SULFACET-R: SEVERE HEADACHES - SIDE EFFECTS TAPES: RASH - ALLERGY DEMEROL: HALLUCINATIONS - SIDE EFFECTS METFORMIN HCL: EXCESSIVE NIGHT SWEATS,ELEVATED GLUCOSE - ALLERGY LEXAPRO: GROGGY - SIDE EFFECTS SULFA (FOR ALLERGY USE ONLY): SEVERE HESDACHE - ALLERGY REMERON: GROGGY - SIDE EFFECTS SURGICAL HISTORY TONSILLECTOMY CHILDHOOD D&C HYSTERECTOMY, TRANSVAGINAL FOR FIBROIDS 1989 RIGHT LOWER LOBE RESECTION FOR PULMONARY NODULE (FOUND TO BE TANJA) 1990 ENDOSCOPIC SINUS SURGERY 1997 BILATERAL BREAST REDUCTION 2006 COLONOSCOPY 11/2010 COLONOSCOPY AND UPPER ENDOSCOPIES-DR. KAYE 10/18/2016 L2-5 LAMENECTOMY AND FUSION-DR LUCAS, FOR SPINAL STENOSIS 11/11/2016 FAMILY HISTORY FATHER: , DIAGNOSED WITH DIABETES, HYPERTENSION, HEART DISEASE MOTHER: , OTHER, CANCER SIBLINGS: ALIVE DAUGHTER(S): ALIVE PATERNAL GRAND FATHER: PATERNAL GRAND MOTHER: MATERNAL GRAND FATHER: MATERNAL GRAND MOTHER: 2 SISTER(S) . 2DAUGHTER(S) . SISTER HAS DIABETES,ARTHRITIS\\\\NNOT SURE OF OTHER SISTERS HEALTH\\\\NFATHER HAD DIABETES AND HEART DISEASE. MOTHER OF PANCREATIC CANCER, APPARENTLY HAD COLON CANCER,AND WAS HYPOTHYROID. ONE OF TWO SISTERS IS HYPOTHYROID. , 1 MISCARRIAGE; ONE DAUGHTER HAS ASTHMA.\\\\N. SOCIAL HISTORY GENERAL: TOBACCO USE ARE YOU A:NONSMOKER HIV / HEP-C SCREENING HIV TEST OFFERED TO PATIENT:YES DATE OFFERED:08/02/2017 TEST ACCEPTED:NO HEP-C TEST OFFERED TO PATIENT:YES DATE OFFERED:08/02/2017 REASON:PATIENT DECLINED TEST ACCEPTED:NO REASON:PATIENT DECLINED BROCHURE PROVIDED TO PATIENTYES OTHERS AT HOME: NONE. HOUSING: OWNS HOME. DIET: NO CONCENTRATED SWEETS.. LANGUAGE GUYANESE. DOMESTIC VIOLENCE DO YOU FEEL SAFE IN YOUR ENVIRONMENT?YES BMI CARE GOAL FOLLOW-UP ABOVE NORMAL BMI FOLLOW-UPWEIGHT MONITORING RECREATIONAL DRUG USE DENIES. EXERCISE: WALKS. 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, WALKER STAFF NUCLEAR WEAPONS OFFICER NEEDED?NO PAIN CLINIC PFS, CLERGY, PUBLIC HEALTH REFERRALS HAS THE PATIENT BEEN EDUCATED REGARDING HIS/HER PLAN OF CARE?YES HAS THE PATIENT BEEN EDUCATED REGARDING PAIN, THE RISK FOR PAIN, THE IMPORTANCE OF EFFECTIVE PAIN MANAGEMENT, AND THE PAIN ASSESSMENT PROCESS?YES LATEX QUESTIONNAIRE LATEX ALLERGY : HAVE YOU EVER DEVELOPED ANY TYPE OF REACTION AFTER HANDLING LATEX PRODUCTS SUCH RUBBER GLOVES, CONDOMS, DIAPHRAGMS, BALLOONS, SOCKS, OR UNDERWEAR?YES LATEX ALLERGY : HAVE YOU EVER DEVELOPED ANY TYPE OF REACTION DURING OR AFTER DENTAL APPOINTMENT, VAGINAL/RECTAL EXAMINATION, SURGICAL PROCEDURE, OR ANY OTHER EXPOSURE?NO - PLEASE INDICATE :RUBBER GLOVES DATE ASKED : 08/09/2018 LATEX RISK : HAVE YOU EVER HAD ANY DIFFICULTY BREATHING OR HIVES AFTER EATING OR HANDLING ANY FRUITS, OR VEGETABLES; SUCH KIWI, BANANAS, STONE FRUITS, OR CHESTNUTSNO LATEX RISK : DO YOU HAVE A PREVIOUS PERSONAL HISTORY OF MORE THAN NINE SURGERIES, SPINA BIFIDA, OR REPEATED CATHERIZATIONS? NO LATEX RISK : ARE YOU FREQUENTLY EXPOSED TO LATEX PRODUCTS IN YOUR OCCUPATION?NO CAFFEINE 1-2/DAY. ADVANCE DIRECTIVE ADVANCE DIRECTIVE DISCUSSED WITH PATIENT:YES PT. STATES SHE HAS HCP 1. ROBERT BARRAGAN [phone] 2. DAVID MATHEW [phone] POA: ROBERT BARRAGAN LIVING [place] NO [place] BELIEFS THAT WOULD IMPACT HEALTH CARE. 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 HOSPITALIZATION/MAJOR DIAGNOSTIC PROCEDURE STATED ABOVE 2 CHILDBIRTH ASTHMA PNEUMONIA CHEST PAIN 10/2014 ER VISIT FOR SCIATIC PAIN- WHILE CAPE COD 10/2015 REVIEW OF SYSTEMS REVIEWED BY: PROVIDER: NAVID GORDON MD . CONSTITUTIONAL: ANY CHANGE IN YOUR MEDICAL CONDITION? YES PT REPORTS SHE HAD A CYST/ABSCESS ON HER UPPER THIGH, TREATED WITH ANTIBIOTICS FOR THAT, THEN SHE HAD A BAD ASTHMA ATTACK, TREATED WITH STEROIDS, AND NOW HAS HAD A SHINGLES OUTBREAK ON HER LEFT ELBOW, TREATED WITH VALTREX. . CHILLS NO . FEVER NO . INFECTION: DO YOU HAVE NEW INFECTIONS? YES SEE ABOVE . DO YOU HAVE HISTORY OF MRSA? NO . MUSCULOSKELETAL: ANY NEW PATTERNS OF PAIN OR NUMBNESS? NO . GASTROENTEROLOGY: ANY NEW CHANGE IN BOWEL CONTROL? NO . GENITOURINARY: ANY NEW CHANGE IN BLADDER CONTROL? NO . IS THERE A CHANCE YOU COULD BE ? NO . HEMATOLOGY/LYMPH: DO YOU TAKE ANY BLOOD THINNERS? (FOR EXAMPLE- COUMADIN, PLAVIX, AGGRENOX, PLATEL, PRADAXA, OR XARELTO) NO . WHEN WAS YOUR LAST DOSE? DATE: TIME: . NEUROLOGY: HAVE YOU FALLEN IN THE PAST 12 MONTHS? NO . ANY NEW EXTREMITY NUMBNESS OR WEAKNESS? NO . CARDIOLOGY: DO YOU HAVE A PACEMAKER OR DEFIBRILLATOR? NO . RESPIRATORY: HAVE YOU BEEN SICK IN THE PAST WEEK? YES, SEE ABOVE . FEVER NO . FLU LIKE SYMPTOMS? NO . COUGH NO . INTEGUMENTARY: DO YOU HAVE ANY RASHES OR OPEN SORES? NO . ALLERGIC/IMMUNO: ARE YOU ALLERGIC TO IV DYE? NO . ANY NEW ALLERGIES? NO . PSYCHIATRIC: DO YOU HAVE THOUGHTS OF HURTING YOURSELF OR SOMEONE ELSE? NO . ARE YOU ABUSED, NEGLECTED, OR IN AN UNSAFE ENVIRONMENT? NO . ENDOCRINOLOGY: ARE YOU DIABETIC? NO . OTHER: DO YOU NEED ANY PRESCRIPTIONS? NO . IF YES, PLEASE LIST: ____ . ANY NEW PROBLEMS WITH YOUR MEDICATIONS? NO . WHEN DID YOU LAST EAT? ____ . WHEN DID YOU LAST DRINK? ____ . WHAT DID YOU LAST DRINK? ____ . NAME OF PERSON DRIVING YOU HOME? ____ . DO YOU HAVE ANY OTHER QUESTIONS OR CONCERNS NO . VITAL SIGNS WT 183.8 LBS, HT 65 IN, BMI 30.58 INDEX, BP 124/78 MM HG, HR 121 /MIN, RR 18 /MIN, TEMP 97.5 F, OXYGEN SAT % 96%, SAFE IN ENV? (Y/N) YES, NA INITIALS SC 15:19, REVIEWED BY: CADEN. EXAMINATION GENERAL EXAMINATION: PATIENT IS ALERT O X 3 AND COOPERATIVE. TENDERNESS IN THE LOW BACK. ASSESSMENTS LOW BACK PAIN - M54.5 (PRIMARY) OTHER CHRONIC PAIN - G89.29 HERPES - B00.9 TREATMENT LOW BACK PAIN CLINICAL NOTES: WE DISCUSSED SEVERAL ISSUES WITH MS. RAMOS'S PAIN MANAGEMENT CASE. THE PATIENT HAS STOPPED USING CYMBALTA DUE TO MEDICAL REACTIONS TO IT. THE PATIENT HAS USED HYDROCODONE IN THE PAST TO HELP WITH HER PAIN ASSOCIATED WITH HERPES. I AM PRESCRIBING HYDROCODONE-ACETAMINOPHEN TABLET 5-325 MG TO BE USED UP TO 3 TABLETS DAILY, 20 TABLETS FOR A WEEK FOR PAIN. SHE WAS GOING TO CALL HER PRIMARY CARE PHYSICIAN BUT I AGREED ON PRESCRIBING IT IN THIS OCCASION. I WILL HOLD OFF ON REQUESTING A DOCTOR TO DOCTOR NARCOTIC AGREEMENT FOR NOW SINCE I AM PRESCRIBING FOR ACUTE PAIN ONLY, AND ONLY IN THIS OCCASION. THE PATIENT WILL FOLLOW UP IN 6 WEEKS WITH NURSE PRACTITIONER. INSTRUCTIONS WERE GIVEN, QUESTIONS WERE ANSWERED, PATIENT REPORTS UNDERSTANDING AND AGREES WITH THE PLAN. I, JACINTA LENNON, DOCUMENTED THE ABOVE INFORMATION ACTING A SCRIBE FOR DR. GORDON. I HAVE REVIEWED THE ABOVE DOCUMENT, WRITTEN BY JACINTA WINTER AND I VERIFY THAT IT IS ACCURATE. . OTHERS START HYDROCODONE-ACETAMINOPHEN TABLET, 5-325 MG, 1 TABLET NEEDED, ORALLY FOR PAIN, EVERY 6 HRS MDD 3, 7 DAYS, 20, REFILLS 0 PREVENTIVE MEDICINE PAIN CLINIC TEACHING: MEDICATIONS PT GIVEN VERBAL EDUCATION ON STARTING HYDROCODONE. PT VERBALIZES UNDERSTANDING. PT DECLINES WRITTEN INFORMATION, STATING SHE HAS TAKEN HYDROCODONE IN THE PAST. CAESAR FENTON 10/23/2018 4:10:30 PM > . PROCEDURE CODES FA211 ESTABILISHED PATIENT [facility] FACILITY CHARGE [id number] CURRENT MEDS W/DOSAGES DOCUMENTED G8730 PAIN ASSESS POS TOOL F/U PLAN DOC DISPOSITION & COMMUNICATION FOLLOW UP 6 WEEKS (REASON: F/U WITH LUIS ALBERTO GOLDBERG) ELECTRONICALLY SIGNED BY NAVID GORDON MD, ON 10/31/2018 AT 03:20 PM EDT DISCLAIMER : THIS IS A VISIT SUMMARY EXTRACTED FROM THE [employer] CHART. IT IS NOT A COPY OF THE [employer] PROGRESS NOTE. MTDD
== END ==
LOC: M PAIN 15:15
PROVIDERS: ATTEND Anesthesiology
DX: G89.29 Other chronic pain (principal); M54.5 Low back pain; B00.9 Herpesviral infection, unspecified; J45.909 Unspecified asthma, uncomplicated; E11.9 Type 2 diabetes mellitus without complications; E78.00 Pure hypercholesterolemia, unspecified; F34.1 Dysthymic disorder; G47.33 Obstructive sleep apnea (adult) (pediatric); G47.00 Insomnia, unspecified; R10.9 Unspecified abdominal pain; M81.0 Age-related osteoporosis without current pathological fracture; Z79.84 Long term (current) use of oral hypoglycemic drugs; Z79.899 Other long term (current) drug therapy; Z98.1 Arthrodesis status; Z90.710 Acquired absence of both cervix and uterus; Z90.2 Acquired absence of lung [part of]; Z88.1 Allergy status to other antibiotic agents; Z88.2 Allergy status to sulfonamides; Z88.8 Allergy status to other drugs, medicaments and biological substances

== ENCOUNTER → 2018-12-08 | Outpatient (CLI) | payer MEDICARE ==
[~2018-12-08] MED LIST changes: -VALA1TAB2 PO; +VALA1TAB64 PO
--- NOTE | 2018-12-13 02:04 | ECWPNPC ---
PATIENT NAME: ZACKARY RAMOS : 1945 GENDER: FEMALE VISIT DATE: 12/08/2018 DISCHARGE DATE: 12/08/18 1102 VISIT LOCKED DATE TIME: PHYSICIAN: LUIS ALBERTO ELIZABETH RESOURCE: LUIS ALBERTO ELIZABETH REASON FOR APPOINTMENT 1. 6 WEEKS HISTORY OF PRESENT ILLNESS HISTORY OF PRESENT ILLNESS: PAIN THE PATIENT DESCRIBES THE PAIN... 73-YEAR-OLD FEMALE IN FOR CHRONIC PAIN FOLLOW-UP. SHE RATES HER PAIN AT A 2 OUT OF 10 CURRENTLY AND DESCRIBES IT ACHING, SHARP, STABBING, AND TENDER. SHE ADMITS TO HAVING BILATERAL SIJ'S IN THE PAST AND FOUND IT HELPFUL IN ALLEVIATING HER PAIN. FALL RISK SCREENING: SCREENING :NO FALLS REPORTED IN THE LAST YEAR CURRENT MEDICATIONS TAKING HYDROCODONE-ACETAMINOPHEN 5-325 MG TABLET 1 TABLET NEEDED ORALLY FOR PAIN EVERY 6 HRS MDD 3 TAKING SYSTANE 0.4-0.3 % SOLUTION 1 DROP INTO AFFECTED EYE NEEDED OPHTHALMIC DAILY NEEDED TAKING PROVENTIL HFA 108 (90 BASE) MCG/ACT AEROSOL SOLUTION 2 PUFFS ` INHALATION EVERY 4 HRS NEEDED FOR WHEEZING TAKING RHINOCORT AQUA 32 MCG/ACT SUSPENSION 2 PUFFS IN EACH NOSTRIL NASALLY ONCE A DAY NEEDED TAKING VITAMIN D3 2000 UNIT CAPSULE 1 TABLET ONCE A DAY TAKING CALCIUM 500 MG TABLET 2 TABLET WITH MEALS ORALLY TWICE A DAY TAKING ADVIL 200 MG TABLET 2 TABLETS WITH FOOD OR MILK NEEDED ORALLY EVERY 6 HOURS NEEDED TAKING TIZANIDINE HCL 2 MG TABLET 1 TABLET NEEDED ORALLY FOR SPASMS AND PAIN BEFORE BEDTIME MAY REPEAT IN 4 HRS MDD2 TAKING ADVAIR DISKUS 500-50 MCG/DOSE AEROSOL POWDER BREATH ACTIVATED 1 PUFF INHALATION TE TWICE A DAY TAKING EXCEDRIN MIGRAINE 250-250-65 MG TABLET 1 TAB ORALLY ONCE A DAY NEEDED TAKING PROTONIX 40 MG TABLET DELAYED RELEASE 1 TABLET ORALLY ONCE A DAY TAKING MICROLET LANCETS - MISCELLANEOUS DIRECTED E11.9 DAILY TAKING VALTREX 500 MG TABLET 1 TABLET ORALLY ONCE A DAY TAKING JANUVIA 100 MG TABLET 1 TABLET ORALLY ONCE A DAY TAKING GLIPIZIDE 5 MG TABLET 1/2 TABLET ORALLY WTH SUPPER TAKING BLOOD GLUCOSE TEST - STRIP DIRECTED IN VITRO, DX: E11.9 DAILY NOT-TAKING DULOXETINE HCL 20 MG CAPSULE DELAYED RELEASE PARTICLES 1 CAPSULE WITH FOOD ORALLY FOR PAIN DAILY NOT-TAKING VALTREX 1 GM TABLET DIRECTED ORALLY TAKE 2 TABS AT THE FIRST SIGN OF OUTBREAK AND REPEAT 2 TABS IN 12 HOURS NOT-TAKING ROSUVASTATIN CALCIUM 10 MG TABLET 1 TABLET ORALLY ONCE A DAY NOT-TAKING GENTAMICIN SULFATE 0.3 % SOLUTION 1 DROP INTO AFFECTED EYE OPHTHALMIC EVERY 4 HRS NOT-TAKING GENTAMICIN SULFATE 0.3 % OINTMENT 1 APPLICATION LEFT EYE OPHTHALMIC TWICE A DAY MEDICATION LIST REVIEWED AND RECONCILED WITH THE PATIENT PAST MEDICAL HISTORY ASTHMA DIABETES MELLITUS HYPERCHOLESTEROLEMIA ALLERGIC RHINITIS HISTORY OF ADENOMATOUS POLYP OF COLON CHRONIC ARTHRITIS DYSTHYMIA OBSTRUCTIVE SLEEP APNEA INSOMNIA UNSPECIFIED ABDOMINAL PAIN HERPES SIMPLEX DISEASE NIGHT SWEATS HISTORY OF SPINAL STENOSIS AGE-RELATED OSTEOPOROSIS WITHOUT CURRENT PATHOLOGICAL FRACTURE BACK PAIN ALLERGIES TORECAN: STIFF JAW - ALLERGY LEVAQUIN: RASH - ALLERGY IV TEQUIN: RASH - ALLERGY SULFACET-R: SEVERE HEADACHES - SIDE EFFECTS TAPES: RASH - ALLERGY DEMEROL: HALLUCINATIONS - SIDE EFFECTS METFORMIN HCL: EXCESSIVE NIGHT SWEATS,ELEVATED GLUCOSE - ALLERGY LEXAPRO: GROGGY - SIDE EFFECTS SULFA (FOR ALLERGY USE ONLY): SEVERE HESDACHE - ALLERGY REMERON: GROGGY - SIDE EFFECTS SURGICAL HISTORY TONSILLECTOMY CHILDHOOD D&C HYSTERECTOMY, TRANSVAGINAL FOR FIBROIDS 1989 RIGHT LOWER LOBE RESECTION FOR PULMONARY NODULE (FOUND TO BE TANJA) 1990 ENDOSCOPIC SINUS SURGERY 1997 BILATERAL BREAST REDUCTION 2006 COLONOSCOPY 11/2010 COLONOSCOPY AND UPPER ENDOSCOPIES-DR. KAYE 10/18/2016 L2-5 LAMENECTOMY AND FUSION-DR LUCAS, FOR SPINAL STENOSIS 11/11/2016 FAMILY HISTORY FATHER: , DIAGNOSED WITH DIABETES, HYPERTENSION, UNSPECIFIED HEART DISEASE MOTHER: , OTHER MALIGNANT NEOPLASM OF UNSPECIFIED SITE, OTHER SPECIFIED CONDITIONS INFLUENCING HEALTH STATUS SIBLINGS: ALIVE DAUGHTER(S): ALIVE PATERNAL GRAND FATHER: PATERNAL GRAND MOTHER: MATERNAL GRAND FATHER: MATERNAL GRAND MOTHER: 2 SISTER(S) . 2DAUGHTER(S) . SISTER HAS DIABETES,ARTHRITIS\\\\NNOT SURE OF OTHER SISTERS HEALTH\\\\NFATHER HAD DIABETES AND HEART DISEASE. MOTHER OF PANCREATIC CANCER, APPARENTLY HAD COLON CANCER,AND WAS HYPOTHYROID. ONE OF TWO SISTERS IS HYPOTHYROID. , 1 MISCARRIAGE; ONE DAUGHTER HAS ASTHMA.\\\\N. SOCIAL HISTORY GENERAL: TOBACCO USE ARE YOU A:NONSMOKER HIV / HEP-C SCREENING HIV TEST OFFERED TO PATIENT:YES DATE OFFERED:08/02/2017 TEST ACCEPTED:NO HEP-C TEST OFFERED TO PATIENT:YES DATE OFFERED:08/02/2017 REASON:PATIENT DECLINED TEST ACCEPTED:NO REASON:PATIENT DECLINED BROCHURE PROVIDED TO PATIENTYES OTHERS AT HOME: NONE. HOUSING: OWNS HOME. DIET: NO CONCENTRATED SWEETS.. LANGUAGE GEORGIAN. DOMESTIC VIOLENCE DO YOU FEEL SAFE IN YOUR ENVIRONMENT?YES BMI CARE GOAL FOLLOW-UP ABOVE NORMAL BMI FOLLOW-UPWEIGHT MONITORING RECREATIONAL DRUG USE DENIES. EXERCISE: WALKS. 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, WALKER PAPER CONE GRADER NEEDED?NO PAIN CLINIC PFS, CLERGY, PUBLIC HEALTH REFERRALS HAS THE PATIENT BEEN EDUCATED REGARDING HIS/HER PLAN OF CARE?YES HAS THE PATIENT BEEN EDUCATED REGARDING PAIN, THE RISK FOR PAIN, THE IMPORTANCE OF EFFECTIVE PAIN MANAGEMENT, AND THE PAIN ASSESSMENT PROCESS?YES LATEX QUESTIONNAIRE LATEX ALLERGY : HAVE YOU EVER DEVELOPED ANY TYPE OF REACTION AFTER HANDLING LATEX PRODUCTS SUCH RUBBER GLOVES, CONDOMS, DIAPHRAGMS, BALLOONS, SOCKS, OR UNDERWEAR?YES LATEX ALLERGY : HAVE YOU EVER DEVELOPED ANY TYPE OF REACTION DURING OR AFTER DENTAL APPOINTMENT, VAGINAL/RECTAL EXAMINATION, SURGICAL PROCEDURE, OR ANY OTHER EXPOSURE?NO - PLEASE INDICATE :RUBBER GLOVES DATE ASKED : 08/09/2018 LATEX RISK : HAVE YOU EVER HAD ANY DIFFICULTY BREATHING OR HIVES AFTER EATING OR HANDLING ANY FRUITS, OR VEGETABLES; SUCH KIWI, BANANAS, STONE FRUITS, OR CHESTNUTSNO LATEX RISK : DO YOU HAVE A PREVIOUS PERSONAL HISTORY OF MORE THAN NINE SURGERIES, SPINA BIFIDA, OR REPEATED CATHERIZATIONS? NO LATEX RISK : ARE YOU FREQUENTLY EXPOSED TO LATEX PRODUCTS IN YOUR OCCUPATION?NO CAFFEINE 1-2/DAY. ADVANCE DIRECTIVE ADVANCE DIRECTIVE DISCUSSED WITH PATIENT:YES PT. STATES SHE HAS HCP 1. ROBERT BARRAGAN [phone] 2. DAVID MATHEW [phone] POA: ROBERT BARRAGAN LIVING WILL VOODOO NO MUSLIM BELIEFS THAT WOULD IMPACT HEALTH CARE. 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 SEXUAL HX HAD SEX IN THE LAST 12 MONTHS (VAGINAL, ORAL, OR ANAL)?NO HAVE YOU EVER HAD AN STD?NO REVIEWED WITH PATIENT 08/16/18 1012 JSREVIEWED WITH PATIENT 10/03/18 1545 LASREVIEWED WITH PATIENT 10/23/18 1540 LASREVIWED WITH PT 12/08/18 1024 BV. HOSPITALIZATION/MAJOR DIAGNOSTIC PROCEDURE STATED ABOVE 2 CHILDBIRTH ASTHMA PNEUMONIA CHEST PAIN 10/2014 ER VISIT FOR SCIATIC PAIN- WHILE CAPE COD 10/2015 ER VISIT FOR ASHMA 10/2018 REVIEW OF SYSTEMS REVIEWED BY: PROVIDER: JUAN NUNEZ-C . CONSTITUTIONAL: ANY CHANGE IN YOUR MEDICAL CONDITION? NO . CHILLS NO . FEVER NO . INFECTION: DO YOU HAVE NEW INFECTIONS? NO . DO YOU HAVE HISTORY OF MRSA? NO . MUSCULOSKELETAL: ANY NEW PATTERNS OF PAIN OR NUMBNESS? NO . GASTROENTEROLOGY: ANY NEW CHANGE IN BOWEL CONTROL? NO . GENITOURINARY: ANY NEW CHANGE IN BLADDER CONTROL? YES, PT REPORTS SOME URGENCY, HAS DISCUSSED WITH ERADICATOR . IS THERE A CHANCE YOU COULD BE ? NO . HEMATOLOGY/LYMPH: DO YOU TAKE ANY BLOOD THINNERS? (FOR EXAMPLE- COUMADIN, PLAVIX, AGGRENOX, PLATEL, PRADAXA, OR XARELTO) NO . WHEN WAS YOUR LAST DOSE? DATE: TIME: . NEUROLOGY: HAVE YOU FALLEN IN THE PAST 12 MONTHS? NO . ANY NEW EXTREMITY NUMBNESS OR WEAKNESS? NO . CARDIOLOGY: DO YOU HAVE A PACEMAKER OR DEFIBRILLATOR? NO . RESPIRATORY: HAVE YOU BEEN SICK IN THE PAST WEEK? NO . FEVER NO . FLU LIKE SYMPTOMS? NO . COUGH NO . INTEGUMENTARY: DO YOU HAVE ANY RASHES OR OPEN SORES? NO . ALLERGIC/IMMUNO: ARE YOU ALLERGIC TO IV DYE? NO . ANY NEW ALLERGIES? NO . PSYCHIATRIC: DO YOU HAVE THOUGHTS OF HURTING YOURSELF OR SOMEONE ELSE? NO . ARE YOU ABUSED, NEGLECTED, OR IN AN UNSAFE ENVIRONMENT? NO . ENDOCRINOLOGY: ARE YOU DIABETIC? YES, ON MEDICATION . OTHER: DO YOU NEED ANY PRESCRIPTIONS? NO . IF YES, PLEASE LIST: ____ . ANY NEW PROBLEMS WITH YOUR MEDICATIONS? NO . WHEN DID YOU LAST EAT? ____ . WHEN DID YOU LAST DRINK? ____ . WHAT DID YOU LAST DRINK? ____ . NAME OF PERSON DRIVING YOU HOME? ____ . DO YOU HAVE ANY OTHER QUESTIONS OR CONCERNS NO . VITAL SIGNS WT 179.4 LBS, HT 65 IN, BMI 29.85 INDEX, BP 137/63 MM HG, HR 105 /MIN, RR 18 /MIN, TEMP 96.4 F, OXYGEN SAT % 94%, NA INITIALS SC 10:02, REVIEWED BY: BV. EXAMINATION GENERAL EXAMINATION: GENERALNO ACUTE DISTRESS, WELL NOURISHED AND HYDRATED. PSYCHAPPROPRIATE MOOD AND AFFECT . LUNGS:CLEAR TO AUSCULTATION BILATERALLY, NO WHEEZES, RHONCHI, RALES. HEART:NO MURMURS, REGULAR RATE AND RHYTHM. MUSCULOSKELETAL:POINT TENDER OVER BILATERAL SIJ . ASSESSMENTS SACROILIITIS, NOT ELSEWHERE CLASSIFIED - M46.1 (PRIMARY) TREATMENT SACROILIITIS, NOT ELSEWHERE CLASSIFIED NOTES: BILATERAL SIJ. CLINICAL NOTES: 73-YEAR-OLD FEMALE IN FOR CHRONIC PAIN FOLLOW-UP. GIVEN PRESENTING SYMPTOMS AND RESULTS OF PHYSICAL EXAMINATION RECOMMENDED BILATERAL SIJ WITH POST PROCEDURAL FOLLOW-UP. PATIENT HAS EXPRESSED UNDERSTANDING OF AND WAS IN AGREEMENT WITH TREATMENT PLAN., ISTOP REGISTRY REVIEWED AND DEMONSTRATES COMPLLIANCE. (REF # [id number] ) BRINGS IN MEDICATIONS WHICH IS APPROPRIATE FOR WHAT WAS DISPENSED. RECENT URINE TOXICOLOGY REVIEWED. NO UNAUTHORIZED MEDICATIONS. NO ILLICIT SUBSTANCES AND PRESCRIBED MEDICATIONS WERE PRESENT. PREVENTIVE MEDICINE PAIN CLINIC TEACHING: PROCEDURE TEACHING PT GIVEN WRITTEN AND VERBAL EDUCATION ON SACROILIAC JOINT INJECTIONS. PT ALSO GIVEN WRITTEN AND VERBAL PRE PROCEDURE INSTRUCTIONS. PT VERBALIZES UNDERSTANDING OF ALL EDUCATION AND INSTRUCTIONS. CAESAR FENTON 12/08/2018 10:55:56 AM > . PROCEDURE CODES FA211 ESTABILISHED PATIENT [facility] CHARGE DISPOSITION & COMMUNICATION FOLLOW UP POSTPROCEDURE (REASON: BILATERAL SIJ) ELECTRONICALLY SIGNED BY MAYRA ALVARENGA ON 12/11/2018 AT 12:12 PM EDT DISCLAIMER : THIS IS A VISIT SUMMARY EXTRACTED FROM THE [employer] CHART. IT IS NOT A COPY OF THE [employer] PROGRESS NOTE. MTDD
== END ==
LOC: M PAIN 09:30
PROVIDERS: ATTEND Family Medicine
DX: M46.1 Sacroiliitis, not elsewhere classified (principal); G89.29 Other chronic pain; J45.909 Unspecified asthma, uncomplicated; E11.9 Type 2 diabetes mellitus without complications; E78.00 Pure hypercholesterolemia, unspecified; G47.33 Obstructive sleep apnea (adult) (pediatric); G47.00 Insomnia, unspecified; M81.0 Age-related osteoporosis without current pathological fracture; Z88.1 Allergy status to other antibiotic agents; Z88.2 Allergy status to sulfonamides; Z88.5 Allergy status to narcotic agent; Z88.8 Allergy status to other drugs, medicaments and biological substances; Z91.09 Other allergy status, other than to drugs and biological substances; Z79.84 Long term (current) use of oral hypoglycemic drugs; Z79.899 Other long term (current) drug therapy

== ENCOUNTER → 2019-01-11 | Outpatient (CLI) | payer MEDICARE ==
[~2019-01-11] MED LIST changes: +BUPIVACAINE HCL 0.25% 30 ML VIAL As Ordered ONE; +ISOVUE-M 300 61% 15ML VIAL (Q9967) As Ordered ONE; +LIDOCAINE 1% SDV INJ 30 ML VIAL As Ordered ONE; +TRIAMCINOLONE ACETONIDE SUSP 40 MG/ML VIAL (J3301) As Ordered ONE; +VALA1TAB2 PO; -VALA1TAB64 PO
--- NOTE | 2019-01-11 12:16 | REP ---
SI JOINT SERIES: Four views bilateral study. HISTORY: Bilateral SI joint block for pain. 30 seconds of fluoroscopy time is reported. FINDINGS: A sequence of four last image hold fluoroscopically obtained spot radiographs of the SI joints demonstrate bilateral needle position and contrast injection associated with the injection procedure. Electronically Signed by Sotero Mcduffie MD 01/11/2019 12:17 P
--- NOTE | 2019-01-25 01:19 | ECWPNPC ---
PATIENT NAME: ZACKARY RAMOS : 1945 GENDER: FEMALE VISIT DATE: 01/11/2019 DISCHARGE DATE: 01/11/19 1200 VISIT LOCKED DATE TIME: PHYSICIAN: NAVID GORDON MD RESOURCE: NAVID GORDON MD REASON FOR APPOINTMENT 1. BILATERAL SIJ HISTORY OF PRESENT ILLNESS HISTORY OF PRESENT ILLNESS: PAIN THE PATIENT DESCRIBES THE PAIN... FALL RISK SCREENING: SCREENING :NO FALLS REPORTED IN THE LAST YEAR CURRENT MEDICATIONS TAKING HYDROCODONE-ACETAMINOPHEN 5-325 MG TABLET 1 TABLET NEEDED ORALLY FOR PAIN EVERY 6 HRS MDD 3 TAKING SYSTANE 0.4-0.3 % SOLUTION 1 DROP INTO AFFECTED EYE NEEDED OPHTHALMIC DAILY NEEDED TAKING PROVENTIL HFA 108 (90 BASE) MCG/ACT AEROSOL SOLUTION 2 PUFFS ` INHALATION EVERY 4 HRS NEEDED FOR WHEEZING TAKING RHINOCORT AQUA 32 MCG/ACT SUSPENSION 2 PUFFS IN EACH NOSTRIL NASALLY ONCE A DAY NEEDED TAKING VITAMIN D3 2000 UNIT CAPSULE 1 TABLET ONCE A DAY TAKING CALCIUM 500 MG TABLET 2 TABLET WITH MEALS ORALLY TWICE A DAY TAKING ADVIL 200 MG TABLET 2 TABLETS WITH FOOD OR MILK NEEDED ORALLY EVERY 6 HOURS NEEDED TAKING TIZANIDINE HCL 2 MG TABLET 1 TABLET NEEDED ORALLY FOR SPASMS AND PAIN BEFORE BEDTIME MAY REPEAT IN 4 HRS MDD2, NOTES: NONE RECENT TAKING ADVAIR DISKUS 500-50 MCG/DOSE AEROSOL POWDER BREATH ACTIVATED 1 PUFF INHALATION TE TWICE A DAY TAKING EXCEDRIN MIGRAINE 250-250-65 MG TABLET 1 TAB ORALLY ONCE A DAY NEEDED TAKING PROTONIX 40 MG TABLET DELAYED RELEASE 1 TABLET ORALLY ONCE A DAY TAKING MICROLET LANCETS - MISCELLANEOUS DIRECTED E11.9 DAILY TAKING JANUVIA 100 MG TABLET 1 TABLET ORALLY ONCE A DAY, NOTES: LAST 01/10/19 AM TAKING GLIPIZIDE 5 MG TABLET 1/2 TABLET ORALLY WTH SUPPER, NOTES: LAST 01/10/19 PM TAKING BLOOD GLUCOSE TEST - STRIP DIRECTED IN VITRO, DX: E11.9 DAILY NOT-TAKING DULOXETINE HCL 20 MG CAPSULE DELAYED RELEASE PARTICLES 1 CAPSULE WITH FOOD ORALLY FOR PAIN DAILY NOT-TAKING VALTREX 1 GM TABLET DIRECTED ORALLY TAKE 2 TABS AT THE FIRST SIGN OF OUTBREAK AND REPEAT 2 TABS IN 12 HOURS NOT-TAKING ROSUVASTATIN CALCIUM 10 MG TABLET 1 TABLET ORALLY ONCE A DAY NOT-TAKING GENTAMICIN SULFATE 0.3 % SOLUTION 1 DROP INTO AFFECTED EYE OPHTHALMIC EVERY 4 HRS NOT-TAKING GENTAMICIN SULFATE 0.3 % OINTMENT 1 APPLICATION LEFT EYE OPHTHALMIC TWICE A DAY DISCONTINUED VALTREX 500 MG TABLET 1 TABLET ORALLY ONCE A DAY MEDICATION LIST REVIEWED AND RECONCILED WITH THE PATIENT PAST MEDICAL HISTORY ASTHMA DIABETES MELLITUS HYPERCHOLESTEROLEMIA ALLERGIC RHINITIS HISTORY OF ADENOMATOUS POLYP OF COLON CHRONIC ARTHRITIS DYSTHYMIA OBSTRUCTIVE SLEEP APNEA INSOMNIA UNSPECIFIED ABDOMINAL PAIN HERPES SIMPLEX DISEASE NIGHT SWEATS HISTORY OF SPINAL STENOSIS AGE-RELATED OSTEOPOROSIS WITHOUT CURRENT PATHOLOGICAL FRACTURE BACK PAIN ALLERGIES TORECAN: STIFF JAW - ALLERGY LEVAQUIN: RASH - ALLERGY IV TEQUIN: RASH - ALLERGY SULFACET-R: SEVERE HEADACHES - SIDE EFFECTS TAPES: RASH - ALLERGY DEMEROL: HALLUCINATIONS - SIDE EFFECTS METFORMIN HCL: EXCESSIVE NIGHT SWEATS,ELEVATED GLUCOSE - ALLERGY REMERON: GROGGY - SIDE EFFECTS LEXAPRO: GROGGY - SIDE EFFECTS SULFA (FOR ALLERGY USE ONLY): SEVERE HESDACHE - ALLERGY SURGICAL HISTORY TONSILLECTOMY CHILDHOOD D&C HYSTERECTOMY, TRANSVAGINAL FOR FIBROIDS 1989 RIGHT LOWER LOBE RESECTION FOR PULMONARY NODULE (FOUND TO BE TANJA) 1990 ENDOSCOPIC SINUS SURGERY 1997 BILATERAL BREAST REDUCTION 2006 COLONOSCOPY 11/2010 COLONOSCOPY AND UPPER ENDOSCOPIES-DR. KAYE 10/18/2016 L2-5 LAMENECTOMY AND FUSION-DR LUCAS, FOR SPINAL STENOSIS 11/11/2016 FAMILY HISTORY FATHER: , DIAGNOSED WITH DIABETES, HYPERTENSION, UNSPECIFIED HEART DISEASE MOTHER: , OTHER MALIGNANT NEOPLASM OF UNSPECIFIED SITE, OTHER SPECIFIED CONDITIONS INFLUENCING HEALTH STATUS SIBLINGS: ALIVE DAUGHTER(S): ALIVE PATERNAL GRAND FATHER: PATERNAL GRAND MOTHER: MATERNAL GRAND FATHER: MATERNAL GRAND MOTHER: 2 SISTER(S) . 2DAUGHTER(S) . SISTER HAS DIABETES,ARTHRITIS\\\\NNOT SURE OF OTHER SISTERS HEALTH\\\\NFATHER HAD DIABETES AND HEART DISEASE. MOTHER OF PANCREATIC CANCER, APPARENTLY HAD COLON CANCER,AND WAS HYPOTHYROID. ONE OF TWO SISTERS IS HYPOTHYROID. , 1 MISCARRIAGE; ONE DAUGHTER HAS ASTHMA.\\\\N. SOCIAL HISTORY GENERAL: TOBACCO USE ARE YOU A:NONSMOKER HIV / HEP-C SCREENING HIV TEST OFFERED TO PATIENT:YES DATE OFFERED:08/02/2017 TEST ACCEPTED:NO HEP-C TEST OFFERED TO PATIENT:YES DATE OFFERED:08/02/2017 REASON:PATIENT DECLINED TEST ACCEPTED:NO REASON:PATIENT DECLINED BROCHURE PROVIDED TO PATIENTYES OTHERS AT HOME: NONE. HOUSING: OWNS HOME. DIET: NO CONCENTRATED SWEETS.. LANGUAGE GERMAN. DOMESTIC VIOLENCE DO YOU FEEL SAFE IN YOUR ENVIRONMENT?YES BMI CARE GOAL FOLLOW-UP ABOVE NORMAL BMI FOLLOW-UPWEIGHT MONITORING RECREATIONAL DRUG USE DENIES. EXERCISE: WALKS. 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, WALKER STUDIO ASSISTANT NEEDED?NO PAIN CLINIC PFS, CLERGY, PUBLIC HEALTH REFERRALS HAS THE PATIENT BEEN EDUCATED REGARDING HIS/HER PLAN OF CARE?YES HAS THE PATIENT BEEN EDUCATED REGARDING PAIN, THE RISK FOR PAIN, THE IMPORTANCE OF EFFECTIVE PAIN MANAGEMENT, AND THE PAIN ASSESSMENT PROCESS?YES LATEX QUESTIONNAIRE LATEX ALLERGY : HAVE YOU EVER DEVELOPED ANY TYPE OF REACTION AFTER HANDLING LATEX PRODUCTS SUCH RUBBER GLOVES, CONDOMS, DIAPHRAGMS, BALLOONS, SOCKS, OR UNDERWEAR?YES LATEX ALLERGY : HAVE YOU EVER DEVELOPED ANY TYPE OF REACTION DURING OR AFTER DENTAL APPOINTMENT, VAGINAL/RECTAL EXAMINATION, SURGICAL PROCEDURE, OR ANY OTHER EXPOSURE?NO - PLEASE INDICATE :RUBBER GLOVES DATE ASKED : 08/09/2018 LATEX RISK : HAVE YOU EVER HAD ANY DIFFICULTY BREATHING OR HIVES AFTER EATING OR HANDLING ANY FRUITS, OR VEGETABLES; SUCH KIWI, BANANAS, STONE FRUITS, OR CHESTNUTSNO LATEX RISK : DO YOU HAVE A PREVIOUS PERSONAL HISTORY OF MORE THAN NINE SURGERIES, SPINA BIFIDA, OR REPEATED CATHERIZATIONS? NO LATEX RISK : ARE YOU FREQUENTLY EXPOSED TO LATEX PRODUCTS IN YOUR OCCUPATION?NO CAFFEINE 1-2/DAY. ADVANCE DIRECTIVE ADVANCE DIRECTIVE DISCUSSED WITH PATIENT:YES PT. STATES SHE HAS HCP 1. ROBERT BARRAGAN [phone] 2. DAVID MATHEW [phone] POA: ROBERT BARRAGAN LIVING WILL ALEVISM NO RESTORATION BELIEFS THAT WOULD IMPACT HEALTH CARE. 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 SEXUAL HX HAD SEX IN THE LAST 12 MONTHS (VAGINAL, ORAL, OR ANAL)?NO HAVE YOU EVER HAD AN STD?NO REVIEWED WITH PATIENT 08/16/18 1012 JSREVIEWED WITH PATIENT 10/03/18 1545 LASREVIEWED WITH PATIENT 10/23/18 1540 LASREVIWED WITH PT 12/08/18 1024 BVREVIEWED WITH PT 01/11/19 1021 BV. HOSPITALIZATION/MAJOR DIAGNOSTIC PROCEDURE STATED ABOVE 2 CHILDBIRTH ASTHMA PNEUMONIA CHEST PAIN 10/2014 ER VISIT FOR SCIATIC PAIN- WHILE CAPE COD 10/2015 ER VISIT FOR ASHMA 10/2018 REVIEW OF SYSTEMS REVIEWED BY: PROVIDER: . CONSTITUTIONAL: ANY CHANGE IN YOUR MEDICAL CONDITION? NO . CHILLS NO . FEVER NO . INFECTION: DO YOU HAVE NEW INFECTIONS? NO . DO YOU HAVE HISTORY OF MRSA? NO . MUSCULOSKELETAL: ANY NEW PATTERNS OF PAIN OR NUMBNESS? NO . GASTROENTEROLOGY: ANY NEW CHANGE IN BOWEL CONTROL? NO . GENITOURINARY: ANY NEW CHANGE IN BLADDER CONTROL? NO . IS THERE A CHANCE YOU COULD BE ? NO . HEMATOLOGY/LYMPH: DO YOU TAKE ANY BLOOD THINNERS? (FOR EXAMPLE- COUMADIN, PLAVIX, AGGRENOX, PLATEL, PRADAXA, OR XARELTO) NO . WHEN WAS YOUR LAST DOSE? DATE: TIME: . NEUROLOGY: HAVE YOU FALLEN IN THE PAST 12 MONTHS? NO . ANY NEW EXTREMITY NUMBNESS OR WEAKNESS? NO . CARDIOLOGY: DO YOU HAVE A PACEMAKER OR DEFIBRILLATOR? NO . RESPIRATORY: HAVE YOU BEEN SICK IN THE PAST WEEK? NO . FEVER NO . FLU LIKE SYMPTOMS? NO . COUGH NO . INTEGUMENTARY: DO YOU HAVE ANY RASHES OR OPEN SORES? NO . ALLERGIC/IMMUNO: ARE YOU ALLERGIC TO IV DYE? NO . ANY NEW ALLERGIES? NO . PSYCHIATRIC: DO YOU HAVE THOUGHTS OF HURTING YOURSELF OR SOMEONE ELSE? NO . ARE YOU ABUSED, NEGLECTED, OR IN AN UNSAFE ENVIRONMENT? NO . ENDOCRINOLOGY: ARE YOU DIABETIC? YES, FSBS WAS 119 . OTHER: DO YOU NEED ANY PRESCRIPTIONS? NO . IF YES, PLEASE LIST: ____ . ANY NEW PROBLEMS WITH YOUR MEDICATIONS? NO . WHEN DID YOU LAST EAT? 01/10/19 PM . WHEN DID YOU LAST DRINK? 01/11/19 0530 . WHAT DID YOU LAST DRINK? WATER . NAME OF PERSON DRIVING YOU HOME? NEREIDA . DO YOU HAVE ANY OTHER QUESTIONS OR CONCERNS NO . VITAL SIGNS WT 179.4 LBS, HT 65 IN, BMI 29.85 INDEX, BP 142/80 MM HG, HR 108 /MIN, RR 18 /MIN, TEMP 97.8 F, OXYGEN SAT % 96%, NA INITIALS SC 09:41, REVIEWED BY: BV. ASSESSMENTS SACROILIITIS, NOT ELSEWHERE CLASSIFIED - M46.1 (PRIMARY) TREATMENT SACROILIITIS, NOT ELSEWHERE CLASSIFIED [facility] FLUORO GUIDANCE (PAIN)[id number] PROCEDURES PN SI PRE PROCEDURE DIAGNOSIS SACROILIITIS, SACROILIAC JOINT DYSFUNCTION POST PROCEDURE DIAGNOSIS SACROILIITIS, SACROILIAC JOINT DYSFUNCTION PROCEDURE BILATERAL SACROILIAC JOINT BLOCK SURGEON DR. NAVID GORDON TECHNOLOGY METHODOLOGY CONSULTANT NONE ANESTHESIA LOCAL PRE PROCEDURE NOTE PATIENT WITH HISTORY OF CHRONIC LOW BACK PAIN. I EVALUATED THE PATIENT AND REVIEWED THE CHART. I WENT OVER THE RISKS, ALTERNATIVES, AND BENEFITS ASSOCIATED WITH THIS PROCEDURE. THE PATIENT WOULD LIKE TO PROCEED AND GAVE CONSENT TO PERFORM THE PROCEDURE. THE PATIENT DENIES UNEXPLAINABLE WEIGHT LOSS, FEVER, CHILLS, OR NEW CHANGES IN URINARY OR BOWEL CONTROL DESCRIPTION OF PROCEDURE THE PATIENT WAS BROUGHT TO THE PROCEDURE ROOM AND PLACED IN THE PRONE POSITION. THE LUMBOSACRAL AREA WAS CLEANED WITH CHLORAPREP SOLUTION AND DRAPED ASEPTICALLY. THE PROCEDURE WAS DONE UNDER STERILE CONDITIONS. I CHECKED LATERALITY AND THE LEVEL WHERE THE PROCEDURE WAS GOING TO BE PERFORMED WITH THE PATIENT AND THE SUPPORTING STAFF AT THE MOMENT OF THE TIME OUT IN THE PROCEDURE ROOM. UNDER FLUOROSCOPIC GUIDANCE, TARGET POINT WAS SELECTED AT THE LOWER BORDER OF THE RIGHT AND LEFT SACROILIAC JOINT. TARGET POINT WAS SELECTED AFTER MEDIAL ROTATION AND TILT OF THE MAGNIFIER OF THE C-ARM. LIDOCAINE WAS USED TO NUMB THE SKIN AND SUBCUTANEOUS TISSUE BELOW IT. A SPINAL NEEDLE, 22-GAUGE, WAS ADVANCED UNDER FLUOROSCOPIC GUIDANCE AND FOLLOWING PATIENT FEEDBACK UNTIL THE TARGET AREA WAS TOUCHED. THE POSITION OF THE NEEDLE WAS VERIFIED WITH AP AND LATERAL VIEWS. AFTER PROPER POSITION OF THE NEEDLE WAS ACHIEVED, ISOVUE M DYE 30%, 0.25 ML, WAS INJECTED SHOWING SPREAD OF THE DYE. THEN, A SOLUTION OF 20 MG OF KENALOG WAS INJECTED IN RIGHT AND LEFT JOINT WITH 3 ML OF BUPIVACAINE 0.125%. THERE WAS NO EVIDENCE OF BLOOD, PARESTHESIA OR CEREBROSPINAL FLUID DURING THE PROCEDURE. THE PATIENT WAS SENT TO THE RECOVERY ROOM. THE PATIENT WAS MOVING THE EXTREMITIES AND DOING WELL. THERE WAS NO COMPLICATION DURING THE PROCEDURE. FLUOROSCOPY TIME WAS 30 SECONDS POST PROCEDURE NOTE THE PATIENT WILL BE SEEN IN A FOLLOW UP IN THE NEXT FEW WEEKS. INSTRUCTIONS WERE GIVEN, QUESTIONS WERE ANSWERED, AND THE PATIENT EXPRESSED UNDERSTANDING AND AGREED WITH THE PLAN. I, JACINTA LENNON, DOCUMENTED THE ABOVE INFORMATION ACTING A SCRIBE FOR DR. GORDON. I HAVE REVIEWED THE ABOVE DOCUMENT, WRITTEN BY JACINTA LENNON SCRIBE AND I VERIFY THAT IT IS ACCURATE. PROCEDURE CODES 61425 INJECT SACROILIAC JOINT, MODIFIERS: [id number] RADXPS IN END [id number] PXD DISPOSITION & COMMUNICATION FOLLOW UP 3 WEEKS ELECTRONICALLY SIGNED BY NAVID GORDON MD, MD ON 01/24/2019 AT 10:22 AM EDT DISCLAIMER : THIS IS A VISIT SUMMARY EXTRACTED FROM THE [employer] CHART. IT IS NOT A COPY OF THE [employer] PROGRESS NOTE. MTDD
== END ==
LOC: M PAIN 09:45
PROVIDERS: ATTEND Anesthesiology
DX: M46.1 Sacroiliitis, not elsewhere classified (principal); J45.909 Unspecified asthma, uncomplicated; E11.9 Type 2 diabetes mellitus without complications; E78.00 Pure hypercholesterolemia, unspecified; F34.1 Dysthymic disorder; G47.33 Obstructive sleep apnea (adult) (pediatric); G47.00 Insomnia, unspecified; M81.0 Age-related osteoporosis without current pathological fracture; Z90.2 Acquired absence of lung [part of]; Z86.010 Personal history of colon polyps; B00.9 Herpesviral infection, unspecified; R61 Generalized hyperhidrosis; Z79.891 Long term (current) use of opiate analgesic; Z79.899 Other long term (current) drug therapy; Z79.84 Long term (current) use of oral hypoglycemic drugs; Z88.1 Allergy status to other antibiotic agents; Z88.2 Allergy status to sulfonamides; Z88.8 Allergy status to other drugs, medicaments and biological substances
CPT/HCPCS: G0260; J3301; Q9967

== ENCOUNTER → 2019-01-29 | Outpatient (CLI) | payer MEDICARE ==
[~2019-01-29] MED LIST changes: -BUPIVACAINE HCL 0.25% 30 ML VIAL As Ordered ONE; -ISOVUE-M 300 61% 15ML VIAL (Q9967) As Ordered ONE; -LIDOCAINE 1% SDV INJ 30 ML VIAL As Ordered ONE; -TRIAMCINOLONE ACETONIDE SUSP 40 MG/ML VIAL (J3301) As Ordered ONE
--- NOTE | 2019-01-31 02:05 | ECWPNPC ---
PATIENT NAME: ZACKARY RAMOS : 1945 GENDER: FEMALE VISIT DATE: 01/29/2019 DISCHARGE DATE: 01/29/19921 VISIT LOCKED DATE TIME: PHYSICIAN: LUIS ALBERTO ELIZABETH RESOURCE: LUIS ALBERTO ELIAZBETH REASON FOR APPOINTMENT 1. POST PROC HISTORY OF PRESENT ILLNESS HISTORY OF PRESENT ILLNESS: PAIN THE PATIENT DESCRIBES THE PAIN... 73-YEAR-OLD FEMALE IN FOR POST PROCEDURAL FOLLOW-UP. PATIENT FEELS THE PROCEDURE WAS INEFFECTIVE RATING HER PAIN PREPROCEDURE AT A 5-6 OUT OF 10 AND POSTPROCEDURE AT A 3-5 OUT OF 10. SHE DOES ADMIT TO SOME DIFFICULTY HAVING A BOWEL MOVEMENT DIRECTLY AFTER THE PROCEDURE FURTHER STATING THAT SHE HAS DEVELOPED URINARY URGENCY AND FREQUENCY. SHE RATES HER PAIN CURRENTLY AT A 2-3 OUT OF 10 AND DESCRIBES IT ACHING, SORE, TENDER, SHARP, STABBING, AND CONTINUOUS. FALL RISK SCREENING: SCREENING :NO FALLS REPORTED IN THE LAST YEAR CURRENT MEDICATIONS TAKING HYDROCODONE-ACETAMINOPHEN 5-325 MG TABLET 1 TABLET NEEDED ORALLY FOR PAIN EVERY 6 HRS MDD 3 TAKING SYSTANE 0.4-0.3 % SOLUTION 1 DROP INTO AFFECTED EYE NEEDED OPHTHALMIC DAILY NEEDED TAKING PROVENTIL HFA 108 (90 BASE) MCG/ACT AEROSOL SOLUTION 2 PUFFS ` INHALATION EVERY 4 HRS NEEDED FOR WHEEZING TAKING RHINOCORT AQUA 32 MCG/ACT SUSPENSION 2 PUFFS IN EACH NOSTRIL NASALLY ONCE A DAY NEEDED TAKING VITAMIN D3 2000 UNIT CAPSULE 1 TABLET ONCE A DAY TAKING CALCIUM 500 MG TABLET 2 TABLET WITH MEALS ORALLY TWICE A DAY TAKING ADVIL 200 MG TABLET 2 TABLETS WITH FOOD OR MILK NEEDED ORALLY EVERY 6 HOURS NEEDED TAKING TIZANIDINE HCL 2 MG TABLET 1 TABLET NEEDED ORALLY FOR SPASMS AND PAIN BEFORE BEDTIME MAY REPEAT IN 4 HRS MDD2 TAKING ADVAIR DISKUS 500-50 MCG/DOSE AEROSOL POWDER BREATH ACTIVATED 1 PUFF INHALATION TE TWICE A DAY TAKING EXCEDRIN MIGRAINE 250-250-65 MG TABLET 1 TAB ORALLY ONCE A DAY NEEDED TAKING PROTONIX 40 MG TABLET DELAYED RELEASE 1 TABLET ORALLY ONCE A DAY TAKING MICROLET LANCETS - MISCELLANEOUS DIRECTED E11.9 DAILY TAKING JANUVIA 100 MG TABLET 1 TABLET ORALLY ONCE A DAY TAKING GLIPIZIDE 5 MG TABLET 1/2 TABLET ORALLY WTH SUPPER TAKING BLOOD GLUCOSE TEST - STRIP DIRECTED IN VITRO, DX: E11.9 DAILY NOT-TAKING DULOXETINE HCL 20 MG CAPSULE DELAYED RELEASE PARTICLES 1 CAPSULE WITH FOOD ORALLY FOR PAIN DAILY NOT-TAKING VALTREX 1 GM TABLET DIRECTED ORALLY TAKE 2 TABS AT THE FIRST SIGN OF OUTBREAK AND REPEAT 2 TABS IN 12 HOURS NOT-TAKING ROSUVASTATIN CALCIUM 10 MG TABLET 1 TABLET ORALLY ONCE A DAY NOT-TAKING GENTAMICIN SULFATE 0.3 % SOLUTION 1 DROP INTO AFFECTED EYE OPHTHALMIC EVERY 4 HRS NOT-TAKING GENTAMICIN SULFATE 0.3 % OINTMENT 1 APPLICATION LEFT EYE OPHTHALMIC TWICE A DAY MEDICATION LIST REVIEWED AND RECONCILED WITH THE PATIENT PAST MEDICAL HISTORY ASTHMA DIABETES MELLITUS HYPERCHOLESTEROLEMIA ALLERGIC RHINITIS HISTORY OF ADENOMATOUS POLYP OF COLON CHRONIC ARTHRITIS DYSTHYMIA OBSTRUCTIVE SLEEP APNEA INSOMNIA UNSPECIFIED ABDOMINAL PAIN HERPES SIMPLEX DISEASE NIGHT SWEATS HISTORY OF SPINAL STENOSIS AGE-RELATED OSTEOPOROSIS WITHOUT CURRENT PATHOLOGICAL FRACTURE BACK PAIN ALLERGIES TORECAN: STIFF JAW - ALLERGY LEVAQUIN: RASH - ALLERGY IV TEQUIN: RASH - ALLERGY SULFACET-R: SEVERE HEADACHES - SIDE EFFECTS TAPES: RASH - ALLERGY DEMEROL: HALLUCINATIONS - SIDE EFFECTS METFORMIN HCL: EXCESSIVE NIGHT SWEATS,ELEVATED GLUCOSE - ALLERGY REMERON: GROGGY - SIDE EFFECTS LEXAPRO: GROGGY - SIDE EFFECTS SULFA (FOR ALLERGY USE ONLY): SEVERE HESDACHE - ALLERGY SURGICAL HISTORY TONSILLECTOMY CHILDHOOD D&C HYSTERECTOMY, TRANSVAGINAL FOR FIBROIDS 1989 RIGHT LOWER LOBE RESECTION FOR PULMONARY NODULE (FOUND TO BE TANJA) 1990 ENDOSCOPIC SINUS SURGERY 1997 BILATERAL BREAST REDUCTION 2006 COLONOSCOPY 11/2010 COLONOSCOPY AND UPPER ENDOSCOPIES-DR. KAYE 10/18/2016 L2-5 LAMENECTOMY AND FUSION-DR LUCAS, FOR SPINAL STENOSIS 11/11/2016 FAMILY HISTORY FATHER: , DIAGNOSED WITH UNSPECIFIED HEART DISEASE, DIABETES, HYPERTENSION MOTHER: , OTHER MALIGNANT NEOPLASM OF UNSPECIFIED SITE, OTHER SPECIFIED CONDITIONS INFLUENCING HEALTH STATUS SIBLINGS: ALIVE DAUGHTER(S): ALIVE PATERNAL GRAND FATHER: PATERNAL GRAND MOTHER: MATERNAL GRAND FATHER: MATERNAL GRAND MOTHER: 2 SISTER(S) . 2DAUGHTER(S) . SISTER HAS DIABETES,ARTHRITIS\\\\NNOT SURE OF OTHER SISTERS HEALTH\\\\NFATHER HAD DIABETES AND HEART DISEASE. MOTHER OF PANCREATIC CANCER, APPARENTLY HAD COLON CANCER,AND WAS HYPOTHYROID. ONE OF TWO SISTERS IS HYPOTHYROID. , 1 MISCARRIAGE; ONE DAUGHTER HAS ASTHMA.\\\\N. SOCIAL HISTORY GENERAL: TOBACCO USE ARE YOU A:NONSMOKER HIV / HEP-C SCREENING HIV TEST OFFERED TO PATIENT:YES DATE OFFERED:08/02/2017 TEST ACCEPTED:NO HEP-C TEST OFFERED TO PATIENT:YES DATE OFFERED:08/02/2017 REASON:PATIENT DECLINED TEST ACCEPTED:NO REASON:PATIENT DECLINED BROCHURE PROVIDED TO PATIENTYES OTHERS AT HOME: NONE. HOUSING: OWNS HOME. DIET: NO CONCENTRATED SWEETS.. LANGUAGE BAHAMIAN. DOMESTIC VIOLENCE DO YOU FEEL SAFE IN YOUR ENVIRONMENT?YES BMI CARE GOAL FOLLOW-UP ABOVE NORMAL BMI FOLLOW-UPWEIGHT MONITORING RECREATIONAL DRUG USE DENIES. EXERCISE: WALKS. 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 PAIN CLINIC PFS, CLERGY, PUBLIC HEALTH REFERRALS HAS THE PATIENT BEEN EDUCATED REGARDING HIS/HER PLAN OF CARE?YES HAS THE PATIENT BEEN EDUCATED REGARDING PAIN, THE RISK FOR PAIN, THE IMPORTANCE OF EFFECTIVE PAIN MANAGEMENT, AND THE PAIN ASSESSMENT PROCESS?YES LATEX QUESTIONNAIRE LATEX ALLERGY : HAVE YOU EVER DEVELOPED ANY TYPE OF REACTION AFTER HANDLING LATEX PRODUCTS SUCH RUBBER GLOVES, CONDOMS, DIAPHRAGMS, BALLOONS, SOCKS, OR UNDERWEAR?YES LATEX ALLERGY : HAVE YOU EVER DEVELOPED ANY TYPE OF REACTION DURING OR AFTER DENTAL APPOINTMENT, VAGINAL/RECTAL EXAMINATION, SURGICAL PROCEDURE, OR ANY OTHER EXPOSURE?NO - PLEASE INDICATE :RUBBER GLOVES DATE ASKED : 08/09/2018 LATEX RISK : HAVE YOU EVER HAD ANY DIFFICULTY BREATHING OR HIVES AFTER EATING OR HANDLING ANY FRUITS, OR VEGETABLES; SUCH KIWI, BANANAS, STONE FRUITS, OR CHESTNUTSNO LATEX RISK : DO YOU HAVE A PREVIOUS PERSONAL HISTORY OF MORE THAN NINE SURGERIES, SPINA BIFIDA, OR REPEATED CATHERIZATIONS? NO LATEX RISK : ARE YOU FREQUENTLY EXPOSED TO LATEX PRODUCTS IN YOUR OCCUPATION?NO CAFFEINE 1-2/DAY. ADVANCE DIRECTIVE ADVANCE DIRECTIVE DISCUSSED WITH PATIENT:YES PT. STATES SHE HAS HCP 1. ROBERT BARRAGAN [phone] 2. DAVID MATHEW [phone] POA: ROBERT BARRAGAN LIVING [place] NO CAODAISM BELIEFS THAT WOULD IMPACT HEALTH CARE. 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 SEXUAL HX HAD SEX IN THE LAST 12 MONTHS (VAGINAL, ORAL, OR ANAL)?NO HAVE YOU EVER HAD AN STD?NO REVIEWED WITH PATIENT 08/16/18 1012 JSREVIEWED WITH PATIENT 10/03/18 1545 LASREVIEWED WITH PATIENT 10/23/18 1540 LASREVIWED WITH PT 12/08/18 1024 BVREVIEWED WITH PT 01/11/19 1021 BV. HOSPITALIZATION/MAJOR DIAGNOSTIC PROCEDURE STATED ABOVE 2 CHILDBIRTH ASTHMA PNEUMONIA CHEST PAIN 10/2014 ER VISIT FOR SCIATIC PAIN- WHILE CAPE COD 10/2015 ER VISIT FOR ASHMA 10/2018 REVIEW OF SYSTEMS REVIEWED BY: PROVIDER: JUAN NUNEZ-Nay . CONSTITUTIONAL: ANY CHANGE IN YOUR MEDICAL CONDITION? NO . CHILLS NO . FEVER NO . INFECTION: DO YOU HAVE NEW INFECTIONS? NO . DO YOU HAVE HISTORY OF MRSA? NO . MUSCULOSKELETAL: ANY NEW PATTERNS OF PAIN OR NUMBNESS? NO . GASTROENTEROLOGY: ANY NEW CHANGE IN BOWEL CONTROL? NO . GENITOURINARY: ANY NEW CHANGE IN BLADDER CONTROL? YES, PT C/O URGENCY SINCE LAST PROCEDURE 01/11/19 FOR SACROILIAC BLOCK . IS THERE A CHANCE YOU COULD BE ? NO . HEMATOLOGY/LYMPH: DO YOU TAKE ANY BLOOD THINNERS? (FOR EXAMPLE- COUMADIN, PLAVIX, AGGRENOX, PLATEL, PRADAXA, OR XARELTO) NO . WHEN WAS YOUR LAST DOSE? DATE: TIME: . NEUROLOGY: HAVE YOU FALLEN IN THE PAST 12 MONTHS? NO . ANY NEW EXTREMITY NUMBNESS OR WEAKNESS? NO . CARDIOLOGY: DO YOU HAVE A PACEMAKER OR DEFIBRILLATOR? NO . RESPIRATORY: HAVE YOU BEEN SICK IN THE PAST WEEK? NO . FEVER NO . FLU LIKE SYMPTOMS? NO . COUGH NO . INTEGUMENTARY: DO YOU HAVE ANY RASHES OR OPEN SORES? NO . ALLERGIC/IMMUNO: ARE YOU ALLERGIC TO IV DYE? NO . ANY NEW ALLERGIES? NO . PSYCHIATRIC: DO YOU HAVE THOUGHTS OF HURTING YOURSELF OR SOMEONE ELSE? NO . ARE YOU ABUSED, NEGLECTED, OR IN AN UNSAFE ENVIRONMENT? NO . ENDOCRINOLOGY: ARE YOU DIABETIC? YES . OTHER: DO YOU NEED ANY PRESCRIPTIONS? NO . IF YES, PLEASE LIST: ____ . ANY NEW PROBLEMS WITH YOUR MEDICATIONS? NO . WHEN DID YOU LAST EAT? ____ . WHEN DID YOU LAST DRINK? ____ . WHAT DID YOU LAST DRINK? ____ . NAME OF PERSON DRIVING YOU HOME? ____ . DO YOU HAVE ANY OTHER QUESTIONS OR CONCERNS NO . VITAL SIGNS WT 179 LBS, HT 65 IN, BMI 29.78 INDEX, BP 136/65 MM HG, HR 115 /MIN, RR 18 /MIN, TEMP 96.1 F, OXYGEN SAT % 94%, NA INITIALS SC 09:00, REVIEWED BY: EM. EXAMINATION GENERAL EXAMINATION: GENERALNO ACUTE DISTRESS, WELL NOURISHED AND HYDRATED. PSYCHAPPROPRIATE MOOD AND AFFECT . LUNGS:CLEAR TO AUSCULTATION BILATERALLY, NO WHEEZES, RHONCHI, RALES. HEART:NO MURMURS, REGULAR RATE AND RHYTHM. ASSESSMENTS SACROILIITIS, NOT ELSEWHERE CLASSIFIED - M46.1 (PRIMARY) TREATMENT SACROILIITIS, NOT ELSEWHERE CLASSIFIED CLINICAL NOTES: 73-YEAR-OLD FEMALE IN FOR POST BILATERAL SIJ FOLLOW-UP. GIVEN PRESENTING SYMPTOMS AND RESULTS OF PHYSICAL EXAMINATION RECOMMENDED FOLLOW-UP IN 2 MONTHS. PATIENT DOES ADMIT TO AN UPCOMING APPOINTMENT WITH A SURGEON TO DISCUSS REASONS FOR INCREASED PAIN. SHE WAS ENCOURAGED TO DISCUSS HER URINARY ISSUES WITH HER PCP. PATIENT HAS EXPRESSED UNDERSTANDING OF AND WAS IN AGREEMENT WITH TREATMENT PLAN. GIVEN TIME TO ASK QUESTIONS AND EXPRESS CONCERNS., ISTOP REGISTRY REVIEWED AND DEMONSTRATES COMPLLIANCE. (REF # [id number] ) BRINGS IN MEDICATIONS WHICH IS APPROPRIATE FOR WHAT WAS DISPENSED. RECENT URINE TOXICOLOGY REVIEWED. NO UNAUTHORIZED MEDICATIONS. NO ILLICIT SUBSTANCES AND PRESCRIBED MEDICATIONS WERE PRESENT. PROCEDURE CODES FA211 ESTABILISHED PATIENT [facility] CHARGE DISPOSITION & COMMUNICATION FOLLOW UP 2 MONTHS (REASON: CHRONIC PAIN) ELECTRONICALLY SIGNED BY MAYRA ALVARENGA ON 01/30/2019 AT 08:24 AM EDT DISCLAIMER : THIS IS A VISIT SUMMARY EXTRACTED FROM THE [employer] CHART. IT IS NOT A COPY OF THE [employer] PROGRESS NOTE. RALPH
== END ==
LOC: M PAIN 09:00
PROVIDERS: ATTEND Family Medicine
DX: M46.1 Sacroiliitis, not elsewhere classified (principal); J45.909 Unspecified asthma, uncomplicated; E11.9 Type 2 diabetes mellitus without complications; E78.00 Pure hypercholesterolemia, unspecified; G47.33 Obstructive sleep apnea (adult) (pediatric); G47.00 Insomnia, unspecified; Z88.2 Allergy status to sulfonamides; Z88.5 Allergy status to narcotic agent; Z88.8 Allergy status to other drugs, medicaments and biological substances; Z91.09 Other allergy status, other than to drugs and biological substances; Z79.84 Long term (current) use of oral hypoglycemic drugs; Z79.899 Other long term (current) drug therapy

== ENCOUNTER → 2019-02-01 | Outpatient (REF) | payer MEDICARE ==
[2019-02-01 17:03] LABS: AMORPHOUS SEDIMENT SMALL (NEGATIVE); APPEARANCE, URINE TURBID (CLEAR); BACTERIA, URINE AUTO 2+ (NEGATIVE); BILIRUBIN, URINE AUTO NEGATIVE (NEGATIVE); BLOOD, URINE BLOOD 2+ (NEGATIVE); COLOR, URINE YELLOW (YELLOW); GLUCOSE, URINE (UA) AUTO NEGATIVE (NEGATIVE); KETONE, URINE AUTO TRACE mg/dL (NEGATIVE); LEUKOCYTE ESTERASE, URINE AUTO 3+ (NEGATIVE); MUCUS, URINE SMALL (NEGATIVE); NITRITE, URINE AUTO NEGATIVE (NEGATIVE); PROTEIN, URINE AUTO 1+ mg/dL (NEGATIVE); RBC, URINE AUTO 91 /HPF (0-3); SPECIFIC GRAVITY URINE AUTO 1.019 (1.002-1.035); SQUAMOUS EPITHELIAL CELL UR AU 2 /HPF (0-6); UROBILINOGEN, URINE AUTO 0.2 mg/dL (0.0-2.0); WBC, URINE AUTO TNTC /HPF (0-3)
== END ==
LOC: M SFHCPLAZ 16:04
PROVIDERS: ATTEND Internal Medicine
DX: R30.0 Dysuria (principal)

== ENCOUNTER → 2019-04-11 | Outpatient (CLI) | payer MEDICARE ==
[~2019-04-11] MED LIST changes: -VALA1TAB2 PO; +VALA1TAB64 PO
[2019-04-11 09:40] LABS: HEMATOCRIT 43.5 % (36.0-47.0); HEMOGLOBIN 13.2 g/dl (12.0-15.5); MEAN CORPUSCULAR HEMOGLOBIN 26.1 pg (27.0-33.0); MEAN CORPUSCULAR HGB CONC 30.3 g/dl (32.0-36.5); PLATELET COUNT, AUTOMATED 249 10^3/uL (150-450); RED BLOOD COUNT 5.06 10^6/uL (4.00-5.40)
[2019-04-11 10:13] LABS: HEMOGLOBIN A1c 7.6 %
[2019-04-11 10:21] LABS: ALBUMIN 3.7 GM/DL (3.2-5.2); ALT/SGPT 21 U/L (12-78); BILIRUBIN,TOTAL 0.4 MG/DL (0.2-1.0); BLOOD UREA NITROGEN 16 MG/DL (7-18); CARBON DIOXIDE LEVEL 26 MEQ/L (21-32); CHLORIDE LEVEL 105 MEQ/L (98-107); CHOLESTEROL LEVEL 249 MG/DL (<200); CHOLESTEROL RISK RATIO 3.557 (<5); CREATININE FOR GFR 0.76 MG/DL (0.55-1.30); GLOMERULAR FILTRATION RATE > 60.0 (>39); GLUCOSE, FASTING 133 MG/DL (70-100); HDL CHOLESTEROL 70 MG/DL (>40); LDL CHOLESTEROL 142 MG/DL (<100); NON-HDL-C 179 MG/DL; POTASSIUM SERUM 4.3 MEQ/L (3.5-5.1); SODIUM LEVEL 140 MEQ/L (136-145); TOTAL PROTEIN 6.9 GM/DL (6.4-8.2); TRIGLYCERIDES LEVEL 183 MG/DL (<150)
[2019-04-11 10:23] LABS: MALB URINE SIEMENS 10.9 MG/L; MAU/CREAT RATIO 12.5 MCG/MG (0.0-30.0)
[2019-04-11 10:58] LABS: TOTAL 25(OH) VITAMIN D 23.3 NG/ML (30.0-100.0)
== END ==
LOC: M WUC 08:26
PROVIDERS: ATTEND Internal Medicine
DX: E11.9 Type 2 diabetes mellitus without complications (principal); E78.00 Pure hypercholesterolemia, unspecified; F34.1 Dysthymic disorder; M81.0 Age-related osteoporosis without current pathological fracture; Z86.010 Personal history of colon polyps

== ENCOUNTER → 2019-05-03 | Outpatient (CLI) | payer MEDICARE ==
--- NOTE | 2019-05-05 08:20 | ECWPNPC ---
PATIENT NAME: ZACKARY RAMOS : 1945 GENDER: FEMALE VISIT DATE: 05/03/2019 DISCHARGE DATE: 05/03/19 0943 VISIT LOCKED DATE TIME: PHYSICIAN: LUIS ALBERTO ELIZABETH RESOURCE: LUIS ALBERTO ELIZABETH REASON FOR APPOINTMENT 1. CHRONIC PAIN HISTORY OF PRESENT ILLNESS HISTORY OF PRESENT ILLNESS: PAIN THE PATIENT DESCRIBES THE PAIN... 73-YEAR-OLD FEMALE IN FOR CHRONIC PAIN FOLLOW-UP. SHE RATES HER PAIN CURRENTLY AT A 5 OUT OF 10 AND DESCRIBES IT ACHING, BURNING, SORE, TENDER, AND SHARP. SHE DOES HAVE COMPLAINTS OF INCREASED PAIN IN HER RIGHT AND LEFT TROCHANTERIC BURSA. FALL RISK SCREENING: SCREENING :NO FALLS REPORTED IN THE LAST YEAR CURRENT MEDICATIONS TAKING SYSTANE 0.4-0.3 % SOLUTION 1 DROP INTO AFFECTED EYE NEEDED OPHTHALMIC DAILY NEEDED TAKING PROVENTIL HFA 108 (90 BASE) MCG/ACT AEROSOL SOLUTION 2 PUFFS ` INHALATION EVERY 4 HRS NEEDED FOR WHEEZING TAKING RHINOCORT AQUA 32 MCG/ACT SUSPENSION 2 PUFFS IN EACH NOSTRIL NASALLY ONCE A DAY NEEDED TAKING VITAMIN D3 2000 UNIT CAPSULE 1 TABLET ONCE A DAY TAKING CALCIUM 500 MG TABLET 2 TABLET WITH MEALS ORALLY TWICE A DAY TAKING ADVIL 200 MG TABLET 2 TABLETS WITH FOOD OR MILK NEEDED ORALLY EVERY 6 HOURS NEEDED TAKING ADVAIR DISKUS 500-50 MCG/DOSE AEROSOL POWDER BREATH ACTIVATED 1 PUFF INHALATION TE TWICE A DAY TAKING EXCEDRIN MIGRAINE 250-250-65 MG TABLET 1 TAB ORALLY ONCE A DAY NEEDED TAKING PROTONIX 40 MG TABLET DELAYED RELEASE 1 TABLET ORALLY ONCE A DAY TAKING MICROLET LANCETS - MISCELLANEOUS DIRECTED E11.9 DAILY TAKING JANUVIA 100 MG TABLET 1 TABLET ORALLY ONCE A DAY TAKING GLIPIZIDE 5 MG TABLET 1/2 TABLET ORALLY WTH SUPPER TAKING BLOOD GLUCOSE TEST - STRIP DIRECTED IN VITRO, DX: E11.9 DAILY TAKING TRIAMCINOLONE ACETONIDE 0.1 % OINTMENT 1 APPLICATION EXTERNALLY TO LEFT ARM RASH TWICE A DAY NOT-TAKING HYDROCODONE-ACETAMINOPHEN 5-325 MG TABLET 1 TABLET NEEDED ORALLY FOR PAIN, I-STOP #[id number] EVERY 6 HRS MDD 3 NOT-TAKING VALTREX 1 GM TABLET DIRECTED ORALLY TAKE 2 TABS AT THE FIRST SIGN OF OUTBREAK AND REPEAT 2 TABS IN 12 HOURS MEDICATION LIST REVIEWED AND RECONCILED WITH THE PATIENT PAST MEDICAL HISTORY ASTHMA DIABETES MELLITUS HYPERCHOLESTEROLEMIA ALLERGIC RHINITIS HISTORY OF ADENOMATOUS POLYP OF COLON CHRONIC ARTHRITIS DYSTHYMIA OBSTRUCTIVE SLEEP APNEA INSOMNIA UNSPECIFIED ABDOMINAL PAIN HERPES SIMPLEX DISEASE NIGHT SWEATS HISTORY OF SPINAL STENOSIS AGE-RELATED OSTEOPOROSIS WITHOUT CURRENT PATHOLOGICAL FRACTURE BACK PAIN ALLERGIES TORECAN: STIFF JAW - ALLERGY LEVAQUIN: RASH - ALLERGY IV TEQUIN: RASH - ALLERGY SULFACET-R: SEVERE HEADACHES - SIDE EFFECTS TAPES: RASH - ALLERGY DEMEROL: HALLUCINATIONS - SIDE EFFECTS METFORMIN HCL: EXCESSIVE NIGHT SWEATS,ELEVATED GLUCOSE - ALLERGY REMERON: GROGGY - SIDE EFFECTS LEXAPRO: GROGGY - SIDE EFFECTS SULFA (FOR ALLERGY USE ONLY): SEVERE HESDACHE - ALLERGY LATEX (FOR ALLERGY USE ONLY): RASH - ALLERGY SURGICAL HISTORY TONSILLECTOMY CHILDHOOD D&C HYSTERECTOMY, TRANSVAGINAL FOR FIBROIDS 1989 RIGHT LOWER LOBE RESECTION FOR PULMONARY NODULE (FOUND TO BE TANJA) 1990 ENDOSCOPIC SINUS SURGERY 1997 BILATERAL BREAST REDUCTION 2006 COLONOSCOPY 11/2010 COLONOSCOPY AND UPPER ENDOSCOPIES-DR. KAYE 10/18/2016 L2-5 LAMENECTOMY AND FUSION-DR LUCAS, FOR SPINAL STENOSIS 11/11/2016 FAMILY HISTORY FATHER: , DIAGNOSED WITH DIABETES, HYPERTENSION, UNSPECIFIED HEART DISEASE MOTHER: , OTHER MALIGNANT NEOPLASM OF UNSPECIFIED SITE, OTHER SPECIFIED CONDITIONS INFLUENCING HEALTH STATUS SIBLINGS: ALIVE DAUGHTER(S): ALIVE PATERNAL GRAND FATHER: PATERNAL GRAND MOTHER: MATERNAL GRAND FATHER: MATERNAL GRAND MOTHER: 2 SISTER(S) . 2DAUGHTER(S) . SISTER HAS DIABETES,ARTHRITIS\\\\NNOT SURE OF OTHER SISTERS HEALTH\\\\NFATHER HAD DIABETES AND HEART DISEASE. MOTHER OF PANCREATIC CANCER, APPARENTLY HAD COLON CANCER,AND WAS HYPOTHYROID. ONE OF TWO SISTERS IS HYPOTHYROID. , 1 MISCARRIAGE; ONE DAUGHTER HAS ASTHMA.\\\\N. SOCIAL HISTORY GENERAL: TOBACCO USE ARE YOU A:NONSMOKER HIV / HEP-C SCREENING HIV TEST OFFERED TO PATIENT:YES DATE OFFERED:08/02/2017 TEST ACCEPTED:NO HEP-C TEST OFFERED TO PATIENT:YES DATE OFFERED:08/02/2017 REASON:PATIENT DECLINED TEST ACCEPTED:NO REASON:PATIENT DECLINED BROCHURE PROVIDED TO PATIENTYES OTHERS AT HOME: NONE. HOUSING: OWNS HOME. DIET: NO CONCENTRATED SWEETS.. LANGUAGE NORWEGIAN. DOMESTIC VIOLENCE DO YOU FEEL SAFE IN YOUR ENVIRONMENT?YES BMI CARE GOAL FOLLOW-UP ABOVE NORMAL BMI FOLLOW-UPWEIGHT MONITORING RECREATIONAL DRUG USE DENIES. EXERCISE: WALKS. 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 CLINIC PFS, CLERGY, PUBLIC HEALTH REFERRALS HAS THE PATIENT BEEN EDUCATED REGARDING HIS/HER PLAN OF CARE?YES HAS THE PATIENT BEEN EDUCATED REGARDING PAIN, THE RISK FOR PAIN, THE IMPORTANCE OF EFFECTIVE PAIN MANAGEMENT, AND THE PAIN ASSESSMENT PROCESS?YES LATEX QUESTIONNAIRE LATEX ALLERGY : HAVE YOU EVER DEVELOPED ANY TYPE OF REACTION AFTER HANDLING LATEX PRODUCTS SUCH RUBBER GLOVES, CONDOMS, DIAPHRAGMS, BALLOONS, SOCKS, OR UNDERWEAR?YES LATEX ALLERGY : HAVE YOU EVER DEVELOPED ANY TYPE OF REACTION DURING OR AFTER DENTAL APPOINTMENT, VAGINAL/RECTAL EXAMINATION, SURGICAL PROCEDURE, OR ANY OTHER EXPOSURE?NO - PLEASE INDICATE :RUBBER GLOVES DATE ASKED : 04/13/2019 LATEX RISK : HAVE YOU EVER HAD ANY DIFFICULTY BREATHING OR HIVES AFTER EATING OR HANDLING ANY FRUITS, OR VEGETABLES; SUCH KIWI, BANANAS, STONE FRUITS, OR CHESTNUTSNO LATEX RISK : DO YOU HAVE A PREVIOUS PERSONAL HISTORY OF MORE THAN NINE SURGERIES, SPINA BIFIDA, OR REPEATED CATHERIZATIONS? YES - PLEASE INDICATE : > 9 SURGERIES LATEX RISK : ARE YOU FREQUENTLY EXPOSED TO LATEX PRODUCTS IN YOUR OCCUPATION?NO CAFFEINE 1-2/DAY. ADVANCE DIRECTIVE ADVANCE DIRECTIVE DISCUSSED WITH PATIENT:YES PT. STATES SHE HAS HCP 1. ROBERT BARRAGAN [phone] 2. DAVID MATHEW [phone] POA: ROBERT BARRAGAN LIVING [place] NO TAOIST BELIEFS THAT WOULD IMPACT HEALTH CARE. 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 HOSPITALIZATION/MAJOR DIAGNOSTIC PROCEDURE STATED ABOVE 2 CHILDBIRTH ASTHMA PNEUMONIA CHEST PAIN 10/2014 ER VISIT FOR SCIATIC PAIN- WHILE CAPE COD 10/2015 ER VISIT FOR ASHMA 10/2018 REVIEW OF SYSTEMS REVIEWED BY: PROVIDER: JUAN LONGORIA . CONSTITUTIONAL: ANY CHANGE IN YOUR MEDICAL CONDITION? NO . CHILLS NO . FEVER NO . INFECTION: DO YOU HAVE NEW INFECTIONS? NO . DO YOU HAVE HISTORY OF MRSA? NO . MUSCULOSKELETAL: ANY NEW PATTERNS OF PAIN OR NUMBNESS? PT REPORTS INCREASED PAIN BOTH HIPS LEFT> RIGHT, AND INCREASED PAIN LEFT KNEE . GASTROENTEROLOGY: ANY NEW CHANGE IN BOWEL CONTROL? NO . GENITOURINARY: ANY NEW CHANGE IN BLADDER CONTROL? NO . IS THERE A CHANCE YOU COULD BE ? NO . HEMATOLOGY/LYMPH: DO YOU TAKE ANY BLOOD THINNERS? (FOR EXAMPLE- COUMADIN, PLAVIX, AGGRENOX, PLATEL, PRADAXA, OR XARELTO) NO . WHEN WAS YOUR LAST DOSE? DATE: TIME: . NEUROLOGY: HAVE YOU FALLEN IN THE PAST 12 MONTHS? NO . ANY NEW EXTREMITY NUMBNESS OR WEAKNESS? NO . CARDIOLOGY: DO YOU HAVE A PACEMAKER OR DEFIBRILLATOR? NO . RESPIRATORY: HAVE YOU BEEN SICK IN THE PAST WEEK? NO . FEVER NO . FLU LIKE SYMPTOMS? NO . COUGH NO . INTEGUMENTARY: DO YOU HAVE ANY RASHES OR OPEN SORES? NO . ALLERGIC/IMMUNO: ARE YOU ALLERGIC TO IV DYE? NO . ANY NEW ALLERGIES? NO . PSYCHIATRIC: DO YOU HAVE THOUGHTS OF HURTING YOURSELF OR SOMEONE ELSE? NO . ARE YOU ABUSED, NEGLECTED, OR IN AN UNSAFE ENVIRONMENT? NO . ENDOCRINOLOGY: ARE YOU DIABETIC? YES . OTHER: DO YOU NEED ANY PRESCRIPTIONS? NO . IF YES, PLEASE LIST: ____ . ANY NEW PROBLEMS WITH YOUR MEDICATIONS? NO . WHEN DID YOU LAST EAT? ____ . WHEN DID YOU LAST DRINK? ____ . WHAT DID YOU LAST DRINK? ____ . NAME OF PERSON DRIVING YOU HOME? ____ . DO YOU HAVE ANY OTHER QUESTIONS OR CONCERNS PT WOULD LIKE TO DISCUSS PAIN MEDICATIONS, SHE IS TAKING ADVIL WHICH IS INEFFECTIVE AT CONTROLLING HER PAIN . VITAL SIGNS WT 179.8 LBS, HT 65 IN, BMI 29.92 INDEX, BP 129/60 MM HG, HR 96 /MIN, RR 18 /MIN, TEMP 98.1 F, OXYGEN SAT % 96%, SAFE IN ENV? (Y/N) YES, REVIEWED BY: CADEN. EXAMINATION GENERAL EXAMINATION: GENERALNO ACUTE DISTRESS, WELL NOURISHED AND HYDRATED. PSYCHAPPROPRIATE MOOD AND AFFECT . LUNGS:CLEAR TO AUSCULTATION BILATERALLY, NO WHEEZES, RHONCHI, RALES. HEART:NO MURMURS, REGULAR RATE AND RHYTHM. MUSCULOSKELETAL:POINT TENDER OVER LEFT TROCHANTERIC BURSA . ASSESSMENTS OTHER BURSITIS OF HIP, LEFT HIP - M70.72 (PRIMARY) TREATMENT OTHER BURSITIS OF HIP, LEFT HIP START TRAMADOL HCL TABLET, 50 MG, 1 TABLET NEEDED, ORALLY, ONCE A DAY PRN, 30 DAYS, 30 NOTES: LEFT TROCHANTERIC BURSAL INJECTION. CLINICAL NOTES: 73-YEAR-OLD FEMALE IN FOR CHRONIC PAIN FOLLOW-UP. GIVEN PRESENTING SYMPTOMS AND RESULTS OF PHYSICAL EXAMINATION RECOMMENDED LEFT TROCHANTERIC BURSAL INJECTION, AND STARTING TRAMADOL 50 MG DAILY NEEDED FOR PAIN. PATIENT HAS EXPRESSED UNDERSTANDING OF AND WAS IN AGREEMENT WITH TREATMENT PLAN. GIVEN TIME TO ASK QUESTIONS AND EXPRESS CONCERNS., ISTOP REGISTRY REVIEWED AND DEMONSTRATES COMPLLIANCE. (REF # [id number] ) BRINGS IN MEDICATIONS WHICH IS APPROPRIATE FOR WHAT WAS DISPENSED. RECENT URINE TOXICOLOGY REVIEWED. NO UNAUTHORIZED MEDICATIONS. NO ILLICIT SUBSTANCES AND PRESCRIBED MEDICATIONS WERE PRESENT. PREVENTIVE MEDICINE PAIN CLINIC TEACHING: MEDICATIONS INFORMATIONAL HANDOUT FOR TRAMADOL PRINTED AND REVIEWED WITH PATIENT. 05/03/2019 PROCEDURE TEACHING TROCHANTERIC BURSA PROCEDURE REVIEWED, PRE PROCEDURE INSTRUCTIONS REVIEWED WITH PATIENT, PATIENT VERBALIZES UNDERSTANDING. 05/03/2019 PROCEDURE CODES FA211 ESTABILISHED PATIENT [facility] CHARGE DISPOSITION & COMMUNICATION FOLLOW UP POSTPROCEDURE (REASON: LEFT TROCHANTERIC BURSAL INJECTION) ELECTRONICALLY SIGNED BY MAYRA ALVARENGA ON 05/04/2019 AT 08:15 AM EST DISCLAIMER : THIS IS A VISIT SUMMARY EXTRACTED FROM THE [employer] CHART. IT IS NOT A COPY OF THE [employer] PROGRESS NOTE. RALPH
== END ==
LOC: M PAIN 08:45
PROVIDERS: ATTEND Family Medicine
DX: M70.72 Other bursitis of hip, left hip (principal); G89.29 Other chronic pain; J45.909 Unspecified asthma, uncomplicated; E11.9 Type 2 diabetes mellitus without complications; E78.00 Pure hypercholesterolemia, unspecified; G47.33 Obstructive sleep apnea (adult) (pediatric); G47.00 Insomnia, unspecified; Z88.2 Allergy status to sulfonamides; Z88.5 Allergy status to narcotic agent; Z88.8 Allergy status to other drugs, medicaments and biological substances; Z91.040 Latex allergy status; Z91.09 Other allergy status, other than to drugs and biological substances; Z79.84 Long term (current) use of oral hypoglycemic drugs; Z79.899 Other long term (current) drug therapy

== ENCOUNTER → 2019-06-14 | Outpatient (CLI) | payer MEDICARE ==
[~2019-06-14] MED LIST changes: +VALA1TAB5 PO; -VALA1TAB64 PO
== END ==
LOC: M PAIN 08:45
PROVIDERS: ATTEND Anesthesiology
DX: Z53.21 Procedure and treatment not carried out due to patient leaving prior to being seen by health care provider (principal)

== ENCOUNTER → 2019-09-18 | Outpatient (CLI) | payer MEDICARE ==
--- NOTE | 2019-09-20 00:25 | ECWPNPC ---
PATIENT NAME: ZACKARY RAMOS : 1945 GENDER: FEMALE VISIT DATE: 09/18/2019 DISCHARGE DATE: 09/18/19 1004 VISIT LOCKED DATE TIME: PHYSICIAN: LUIS ALBERTO ELIZABETH RESOURCE: LUIS ALBERTO ELIZABETH REASON FOR APPOINTMENT 1. LOW BACK- WANTS PROC HISTORY OF PRESENT ILLNESS GENERAL: - 74-YEAR-OLD FEMALE IN FOR CHRONIC PAIN FOLLOW-UP SHE RATES HER PAIN CURRENTLY AT A 3 OUT OF 10 AND DESCRIBES IT BURNING AND SHARP. AT LAST CLINIC VISIT PATIENT WAS STARTED ON TRAMADOL AND SHE ADMITS TODAY THAT SHE HAS BEEN UNABLE TO TAKE THIS GIVEN A SIDE EFFECT OF LEG TWITCHING. FALL RISK SCREENING: SCREENING :NO FALLS REPORTED IN THE LAST YEAR PAIN SCREENING: PATIENT HAS A COMPLAINT OF ACUTE OR CHRONIC PAIN :YES LOCATION OF PAIN:LOW BACK INTENSITY OF PAIN (SCALE OF 1 TO 10):3 WHAT DOES YOUR PAIN FEEL LIKE:BURNING, SHARP DURATION:CONTINOUS, CONSTANT, ALL DAY, AWAKENS FROM SLEEP PAIN IS INCREASED BY:ACTIVITIES, PROLONGED STANDING, OTHERS WALKING, SITTING PAIN IS DECREASED BY:USE OF PAIN MEDICATIONS ALEVE PAIN HAS INTERFERED WITH THE FOLLOWING:MOOD, HOUSEWORK, SLEEP, RELATIONSHIP WITH OTHERS, ENJOYMENT OF LIFE PLAN/GOALS/TREATMENT/INTERVENTION/FOLLOW UP:SEE PLAN NURSING NOTE: -. PAIN CENTER INTAKE QUESTIONS: DO YOU HAVE A HISTORY OF MRSA? :NO DO YOU TAKE A BLOOD THINNERS? :NO DO YOU HAVE ANY BLEEDING DISORDERS? :NO ANY NEW NUMBNESS OR WEAKNESS IN YOUR LEGS OR ARMS? :NO ANY PACEMAKER,DEFIBRILLATOR, OR DORSAL COLUMN STIMULATOR? :NO DO YOU HAVE ANY RASHES OR OPEN SORES? :NO ARE YOU ALLERGIC TO IV DYE? :NO ARE YOU DIABETIC? :YES ANY NEW PROBLEMS WITH YOUR MEDICATIONS? :NO HAVE YOU RECEIVED A VACCINE IN THE PAST 30 DAYS? :NO DO YOU PLAN TO RECEIVE A VACCINE IN THE NEXT 21 DAYS? :NO DO YOU NEED ANY PRESCRIPTION? :NO DO YOU TAKE ANY IMMUNOSUPPRESSIVE MEDICATIONS? :NO IS THERE A CHANCE YOU COULD BE ? :NO ARE YOU BREAST FEEDING? :NO CURRENT MEDICATIONS TAKING SYSTANE 0.4-0.3 % SOLUTION 1 DROP INTO AFFECTED EYE NEEDED OPHTHALMIC DAILY NEEDED TAKING PROVENTIL HFA 108 (90 BASE) MCG/ACT AEROSOL SOLUTION 2 PUFFS ` INHALATION EVERY 4 HRS NEEDED FOR WHEEZING, NOTES: 1 WEEK AGO TAKING RHINOCORT AQUA 32 MCG/ACT SUSPENSION 2 PUFFS IN EACH NOSTRIL NASALLY ONCE A DAY NEEDED TAKING VITAMIN D3 2000 UNIT CAPSULE 1 TABLET ONCE A DAY TAKING CALCIUM 500 MG TABLET 2 TABLET WITH MEALS ORALLY TWICE A DAY TAKING ADVIL 200 MG TABLET 2 TABLETS WITH FOOD OR MILK NEEDED ORALLY EVERY 6 HOURS NEEDED TAKING ADVAIR DISKUS 500-50 MCG/DOSE AEROSOL POWDER BREATH ACTIVATED 1 PUFF INHALATION TE TWICE A DAY TAKING EXCEDRIN MIGRAINE 250-250-65 MG TABLET 1 TAB ORALLY ONCE A DAY NEEDED, NOTES: 1 WEEK TAKING MICROLET LANCETS - MISCELLANEOUS DIRECTED E11.9 DAILY TAKING BLOOD GLUCOSE TEST - STRIP DIRECTED IN VITRO, DX: E11.9 DAILY TAKING TRIAMCINOLONE ACETONIDE 0.1 % OINTMENT 1 APPLICATION EXTERNALLY TO LEFT ARM RASH TWICE A DAY TAKING GLIPIZIDE 5 MG TABLET 1/2 TABLET ORALLY WTH SUPPER, NOTES: 06/13/2019 TAKING PROTONIX 40 MG TABLET DELAYED RELEASE 1 TABLET ORALLY ONCE A DAY TAKING JANUVIA 100 MG TABLET 1 TABLET ORALLY ONCE A DAY TAKING TRAMADOL HCL 50 MG TABLET 1 TABLET NEEDED ORALLY ONCE A DAY PRN, NOTES: 1 WEEK AGO NOT-TAKING HYDROCODONE-ACETAMINOPHEN 5-325 MG TABLET 1 TABLET NEEDED ORALLY FOR PAIN, I-STOP #[id number] EVERY 6 HRS MDD 3 NOT-TAKING VALTREX 1 GM TABLET DIRECTED ORALLY TAKE 2 TABS AT THE FIRST SIGN OF OUTBREAK AND REPEAT 2 TABS IN 12 HOURS MEDICATION LIST REVIEWED AND RECONCILED WITH THE PATIENT PAST MEDICAL HISTORY ASTHMA DIABETES MELLITUS HYPERCHOLESTEROLEMIA ALLERGIC RHINITIS HISTORY OF ADENOMATOUS POLYP OF COLON CHRONIC ARTHRITIS DYSTHYMIA OBSTRUCTIVE SLEEP APNEA INSOMNIA UNSPECIFIED ABDOMINAL PAIN HERPES SIMPLEX DISEASE NIGHT SWEATS HISTORY OF SPINAL STENOSIS AGE-RELATED OSTEOPOROSIS WITHOUT CURRENT PATHOLOGICAL FRACTURE BACK PAIN ALLERGIES TORECAN: STIFF JAW - ALLERGY LEVAQUIN: RASH - ALLERGY IV TEQUIN: RASH - ALLERGY SULFACET-R: SEVERE HEADACHES - SIDE EFFECTS TAPES: RASH - ALLERGY DEMEROL: HALLUCINATIONS - SIDE EFFECTS METFORMIN HCL: EXCESSIVE NIGHT SWEATS,ELEVATED GLUCOSE - ALLERGY REMERON: GROGGY - SIDE EFFECTS LEXAPRO: GROGGY - SIDE EFFECTS SULFA (FOR ALLERGY USE ONLY): SEVERE HESDACHE - ALLERGY LATEX (FOR ALLERGY USE ONLY): RASH - ALLERGY SURGICAL HISTORY TONSILLECTOMY CHILDHOOD D&C HYSTERECTOMY, TRANSVAGINAL FOR FIBROIDS 1989 RIGHT LOWER LOBE RESECTION FOR PULMONARY NODULE (FOUND TO BE TANJA) 1990 ENDOSCOPIC SINUS SURGERY 1997 BILATERAL BREAST REDUCTION 2006 COLONOSCOPY 11/2010 COLONOSCOPY AND UPPER ENDOSCOPIES-DR. KAYE 10/18/2016 L2-5 LAMENECTOMY AND FUSION-DR LUCAS, FOR SPINAL STENOSIS 11/11/2016 FAMILY HISTORY FATHER: , DIAGNOSED WITH DIABETES, HYPERTENSION, UNSPECIFIED HEART DISEASE MOTHER: , OTHER MALIGNANT NEOPLASM OF UNSPECIFIED SITE, OTHER SPECIFIED CONDITIONS INFLUENCING HEALTH STATUS SIBLINGS: ALIVE DAUGHTER(S): ALIVE PATERNAL GRAND FATHER: PATERNAL GRAND MOTHER: MATERNAL GRAND FATHER: MATERNAL GRAND MOTHER: 2 SISTER(S) . 2DAUGHTER(S) . SISTER HAS DIABETES,ARTHRITIS\\\\NNOT SURE OF OTHER SISTERS HEALTH\\\\NFATHER HAD DIABETES AND HEART DISEASE. MOTHER OF PANCREATIC CANCER, APPARENTLY HAD COLON CANCER,AND WAS HYPOTHYROID. ONE OF TWO SISTERS IS HYPOTHYROID. , 1 MISCARRIAGE; ONE DAUGHTER HAS ASTHMA.\\\\N. SOCIAL HISTORY GENERAL: TOBACCO USE ARE YOU A:NONSMOKER LATEX QUESTIONNAIRE LATEX ALLERGY : HAVE YOU EVER DEVELOPED ANY TYPE OF REACTION AFTER HANDLING LATEX PRODUCTS SUCH RUBBER GLOVES, CONDOMS, DIAPHRAGMS, BALLOONS, SOCKS, OR UNDERWEAR?YES - PLEASE INDICATE :RUBBER GLOVES LATEX ALLERGY : HAVE YOU EVER DEVELOPED ANY TYPE OF REACTION DURING OR AFTER DENTAL APPOINTMENT, VAGINAL/RECTAL EXAMINATION, SURGICAL PROCEDURE, OR ANY OTHER EXPOSURE?NO LATEX RISK : HAVE YOU EVER HAD ANY DIFFICULTY BREATHING OR HIVES AFTER EATING OR HANDLING ANY FRUITS, OR VEGETABLES; SUCH KIWI, BANANAS, STONE FRUITS, OR CHESTNUTSNO LATEX RISK : DO YOU HAVE A PREVIOUS PERSONAL HISTORY OF MORE THAN NINE SURGERIES, SPINA BIFIDA, OR REPEATED CATHERIZATIONS? YES - PLEASE INDICATE : > 9 SURGERIES LATEX RISK : ARE YOU FREQUENTLY EXPOSED TO LATEX PRODUCTS IN YOUR OCCUPATION?NO DATE ASKED : 09/18/2019 BMI CARE GOAL FOLLOW-UP ABOVE NORMAL BMI FOLLOW-UPWEIGHT MONITORING ALCOHOL SCREENING DID YOU HAVE A DRINK CONTAINING ALCOHOL IN THE PAST YEAR?NO POINTS0 INTERPRETATIONNEGATIVE RECREATIONAL DRUG USE DENIES. CAFFEINE 1-2/DAY. SEXUAL HX HAD SEX IN THE LAST 12 MONTHS (VAGINAL, ORAL, OR ANAL)?NO HAVE YOU EVER HAD AN STD?NO HIV / HEP-C SCREENING HIV TEST OFFERED TO PATIENT:YES DATE OFFERED:08/02/2017 TEST ACCEPTED:NO HEP-C TEST OFFERED TO PATIENT:YES DATE OFFERED:08/02/2017 REASON:PATIENT DECLINED TEST ACCEPTED:NO REASON:PATIENT DECLINED BROCHURE PROVIDED TO PATIENTYES CATHOLIC NO JEW BELIEFS THAT WOULD IMPACT HEALTH CARE. LANGUAGE SYRIAC. 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 DIET: NO CONCENTRATED SWEETS.. EXERCISE: WALKS. OTHERS AT HOME: NONE. PAIN CLINIC PFS, CLERGY, PUBLIC HEALTH REFERRALS HAS THE PATIENT BEEN EDUCATED REGARDING HIS/HER PLAN OF CARE?YES HAS THE PATIENT BEEN EDUCATED REGARDING PAIN, THE RISK FOR PAIN, THE IMPORTANCE OF EFFECTIVE PAIN MANAGEMENT, AND THE PAIN ASSESSMENT PROCESS?YES HOUSING: OWNS HOME. ADVANCE DIRECTIVE ADVANCE DIRECTIVE DISCUSSED WITH PATIENT:YES PT. STATES SHE HAS HCP 1. ROBERT HAROILLING [phone] 2. DAVID MATHEW [phone] POA: [facility] HOSPITALIZATION/MAJOR DIAGNOSTIC PROCEDURE STATED ABOVE 2 CHILDBIRTH ASTHMA PNEUMONIA CHEST PAIN 10/2014 ER VISIT FOR SCIATIC PAIN- WHILE [facility] 10/2015 ER VISIT FOR ASHMA 10/2018 REVIEW OF SYSTEMS CONSTITUTIONAL: ANY RECENT FEVER OR ILLNESS NO . CHILLS NO . GASTROENTEROLOGY: BOWEL INCONTINENCE NO . ANY NEW CHANGE IN BOWEL CONTROL? NO . ABDOMINAL PAIN NO . CONSTIPATION NO . GENITOURINARY: ANY NEW CHANGE IN BLADDER CONTROL? NO . URINARY INCONTINENCE NO . CARDIOLOGY: CHEST PRESSURE NO . CHEST PAIN NO . RESPIRATORY: COUGH NO . SHORTNESS OF BREATH NO . VITAL SIGNS WT 189.0 LBS, HT 65 IN, BMI 31.45 INDEX, BP 132/67 MM HG, HR 115 /MIN, RR 18 /MIN, TEMP 96.0 F, OXYGEN SAT % 95%, NA INITIALS AW 0935. EXAMINATION GENERAL EXAMINATION: GENERALNO ACUTE DISTRESS, WELL NOURISHED AND HYDRATED. PSYCHAPPROPRIATE MOOD AND AFFECT . LUNGS:CLEAR TO AUSCULTATION BILATERALLY, NO WHEEZES, RHONCHI, RALES. HEART:NO MURMURS, REGULAR RATE AND RHYTHM. MUSCULOSKELETAL:POINT TENDER LEFT TROCHANTERIC BURSA . 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 CLINICAL NOTES: 74 OLD FEMALE IN FOR CHRONIC PAIN FOLLOW-UP. GIVEN PRESENTING SYMPTOMS RECOMMEND LEFT TROCHANTERIC BURSAL INJECTION, STOPPING TRAMADOL, AND STARTING TYLENOL WITH CODEINE. PATIENT HAS EXPRESSED UNDERSTANDING OF AND WAS IN AGREEMENT WITH TREATMENT PLAN. GIVEN TIME TO ASK QUESTIONS AND EXPRESS CONCERNS. , ISTOP REGISTRY REVIEWED AND DEMONSTRATES COMPLLIANCE. (REF # [id number] ) BRINGS IN MEDICATIONS WHICH IS APPROPRIATE FOR WHAT WAS DISPENSED. RECENT URINE TOXICOLOGY REVIEWED. NO UNAUTHORIZED MEDICATIONS. NO ILLICIT SUBSTANCES AND PRESCRIBED MEDICATIONS WERE PRESENT. , RISKS OF NARCOTIC/OPIOD MEDICATIONS INCLUDES BUT IS NOT LIMITED TO RISK OF DEPENDANCE/DEVELOPMENT OF ADDICTION, MOOD DISTURBANCE AND DEPRESSION, OSTEOPOROSIS, HORMONAL AND LABIDAL CHANGES, RESPIRATORY DEPRESSION AND . PATIENT IS ADVISED NOT TO DRIVE OR DRINK ALCOHOL WHILE ON THESE MEDICATIONS. PROCEDURE CODES FA211 ESTABILISHED PATIENT [facility] CHARGE DISPOSITION & COMMUNICATION FOLLOW UP POSTPROCEDURE (REASON: LEFT TROCHANTERIC BURSAL INJECTION) ELECTRONICALLY SIGNED BY MAYRA ALVARENGA ON 09/19/2019 AT 08:56 AM EDT DISCLAIMER : THIS IS A VISIT SUMMARY EXTRACTED FROM THE [employer] CHART. IT IS NOT A COPY OF THE [email or web address] PROGRESS NOTE. RALPH
== END ==
LOC: M PAIN 09:30
PROVIDERS: ATTEND Family Medicine
DX: M70.62 Trochanteric bursitis, left hip (principal)

== ENCOUNTER → 2019-09-28 | Outpatient (CLI) | payer MEDICARE | LOC: M LABSMTC 12:25 | PROVIDERS: ATTEND Anesthesiology | DX: Z01.818 Encounter for other preprocedural examination (principal); Z11.59 Encounter for screening for other viral diseases | CPT/HCPCS: C9803; U0003 ==

== ENCOUNTER → 2019-10-01 | Outpatient (CLI) | payer MEDICARE ==
[~2019-10-01] MED LIST changes: +BUPIVACAINE HCL 0.25% 30ML VIAL As Ordered ONE; +ISOVUE-M 300 61% 15ML VIAL As Ordered ONE; +LIDOCAINE 1% SDV 30ML VIAL As Ordered ONE; +TRIAMCINOLONE ACETONIDE SUSP 40 MG/ML VIAL (J3301) As Ordered ONE
--- NOTE | 2019-10-01 12:57 | REP ---
LEFT HIP SERIES: PARTIAL STUDY, FOUR VIEWS. HISTORY: Procedural imaging. 9 seconds fluoroscopy time is reported. FINDINGS: A sequence of four last image hold fluoroscopically obtained spot radiographs document needle position associated with hip injection procedure. Electronically Signed by Sotero Mcduffie MD 10/01/2019 02:46 P
--- NOTE | 2019-10-02 01:21 | ECWPNPC ---
PATIENT NAME: ZACKARY RAMOS : 1945 GENDER: FEMALE VISIT DATE: 10/01/2019 DISCHARGE DATE: 10/01/19 1255 VISIT LOCKED DATE TIME: PHYSICIAN: NAVID GORDON MD RESOURCE: NAVID GORDON MD REASON FOR APPOINTMENT 1. LEFT TROCHANTERIC BURSAL INJECTION PAT COMPLETED HISTORY OF PRESENT ILLNESS GENERAL: -. FALL RISK SCREENING: SCREENING :NO FALLS REPORTED IN THE LAST YEAR PAIN SCREENING: PATIENT HAS A COMPLAINT OF ACUTE OR CHRONIC PAIN :YES INTENSITY OF PAIN (SCALE OF 1 TO 10):4 REPORTS BEST PAIN LEVEL OF 2-3, WORST PAIN LEVEL IS A 5. WHAT DOES YOUR PAIN FEEL LIKE:ACHING, SHARP, SORE DURATION:CONSTANT PAIN IS INCREASED BY: ACTIVITIES, PROLONGED STANDING AND SITTING NURSING NOTE: -. PAIN CENTER INTAKE QUESTIONS: DO YOU HAVE A HISTORY OF MRSA? :NO DO YOU TAKE A BLOOD THINNERS? :NO DO YOU HAVE ANY BLEEDING DISORDERS? :NO ANY NEW NUMBNESS OR WEAKNESS IN YOUR LEGS OR ARMS? :NO ANY PACEMAKER,DEFIBRILLATOR, OR DORSAL COLUMN STIMULATOR? :NO DO YOU HAVE ANY RASHES OR OPEN SORES? :NO ARE YOU ALLERGIC TO IV DYE? :NO ARE YOU DIABETIC? :YES ANY NEW PROBLEMS WITH YOUR MEDICATIONS? :NO HAVE YOU RECEIVED A VACCINE IN THE PAST 30 DAYS? :NO DO YOU PLAN TO RECEIVE A VACCINE IN THE NEXT 21 DAYS? :NO DO YOU TAKE ANY IMMUNOSUPPRESSIVE MEDICATIONS? :NO ANY HISTORY OF SEIZURES? :NO ANY HISTORY OF CARDIAC ISSUES OR EVENTS? :NO DO YOU HAVE SLEEP APNEA? :YES DO YOU WEAR A CPAP?NO ANY RECENT HEAD INJURY? :NO DO YOU HAVE ANY NEW INFECTIONS? :NO IS THERE A CHANCE YOU COULD BE ? :NO ARE YOU BREAST FEEDING? :NO WHEN DID YOU LAST EAT? : -09/29 183 WHEN DID YOU LAST DRINK? : -09/30 2399 WHAT DID YOU LAST DRINK? : -WATER NAME OF PERSON DRIVING YOU HOME? : -A FRIEND DO YOU HAVE ANY OTHER QUESTIONS OR CONCERNS? : - CURRENT MEDICATIONS TAKING SYSTANE 0.4-0.3 % SOLUTION 1 DROP INTO AFFECTED EYE NEEDED OPHTHALMIC DAILY NEEDED, NOTES: 3 DAYS TAKING PROVENTIL HFA 108 (90 BASE) MCG/ACT AEROSOL SOLUTION 2 PUFFS ` INHALATION EVERY 4 HRS NEEDED FOR WHEEZING, NOTES: 6/29 0800 TAKING RHINOCORT AQUA 32 MCG/ACT SUSPENSION 2 PUFFS IN EACH NOSTRIL NASALLY ONCE A DAY NEEDED, NOTES: > 2 WEEKS TAKING VITAMIN D3 2000 UNIT CAPSULE 1 TABLET ONCE A DAY, NOTES: 09/29 699 TAKING CALCIUM 500 MG TABLET 2 TABLET WITH MEALS ORALLY TWICE A DAY, NOTES: 09/29 699 TAKING ADVIL 200 MG TABLET 2 TABLETS WITH FOOD OR MILK NEEDED ORALLY EVERY 6 HOURS NEEDED, NOTES: 09/27 TAKING ADVAIR DISKUS 500-50 MCG/DOSE AEROSOL POWDER BREATH ACTIVATED 1 PUFF INHALATION TE TWICE A DAY, NOTES: 09/30 699 TAKING EXCEDRIN MIGRAINE 250-250-65 MG TABLET 1 TAB ORALLY ONCE A DAY NEEDED, NOTES: 4 DAYS AGO TAKING MICROLET LANCETS - MISCELLANEOUS DIRECTED E11.9 DAILY TAKING BLOOD GLUCOSE TEST - STRIP DIRECTED IN VITRO, DX: E11.9 DAILY TAKING GLIPIZIDE 5 MG TABLET 1/2 TABLET ORALLY WTH SUPPER, NOTES: 09/29 1899 TAKING PROTONIX 40 MG TABLET DELAYED RELEASE 1 TABLET ORALLY ONCE A DAY, NOTES: 09/29 1899 TAKING JANUVIA 100 MG TABLET 1 TABLET ORALLY ONCE A DAY, NOTES: 09/29 699 TAKING ACETAMINOPHEN-CODEINE 300-30 MG TABLET 1 TABLET NEEDED ORALLY DAILY NEEDED, NOTES: 09/28 TAKING DIFLUCAN 200 MG TABLET 1 TABLET ORALLY DAILY, NOTES: JUST STARTED NOT-TAKING TRIAMCINOLONE ACETONIDE 0.1 % OINTMENT 1 APPLICATION EXTERNALLY TO LEFT ARM RASH TWICE A DAY NOT-TAKING HYDROCODONE-ACETAMINOPHEN 5-325 MG TABLET 1 TABLET NEEDED ORALLY FOR PAIN, I-STOP #[id number] EVERY 6 HRS MDD 3 NOT-TAKING VALTREX 1 GM TABLET DIRECTED ORALLY TAKE 2 TABS AT THE FIRST SIGN OF OUTBREAK AND REPEAT 2 TABS IN 12 HOURS MEDICATION LIST REVIEWED AND RECONCILED WITH THE PATIENT PAST MEDICAL HISTORY ASTHMA DIABETES MELLITUS HYPERCHOLESTEROLEMIA ALLERGIC RHINITIS HISTORY OF ADENOMATOUS POLYP OF COLON CHRONIC ARTHRITIS DYSTHYMIA OBSTRUCTIVE SLEEP APNEA INSOMNIA UNSPECIFIED ABDOMINAL PAIN HERPES SIMPLEX DISEASE NIGHT SWEATS HISTORY OF SPINAL STENOSIS AGE-RELATED OSTEOPOROSIS WITHOUT CURRENT PATHOLOGICAL FRACTURE BACK PAIN ALLERGIES TORECAN: STIFF JAW - ALLERGY LEVAQUIN: RASH - ALLERGY IV TEQUIN: RASH - ALLERGY SULFACET-R: SEVERE HEADACHES - SIDE EFFECTS TAPES: RASH - ALLERGY DEMEROL: HALLUCINATIONS - SIDE EFFECTS METFORMIN HCL: EXCESSIVE NIGHT SWEATS,ELEVATED GLUCOSE - ALLERGY REMERON: GROGGY - SIDE EFFECTS LEXAPRO: GROGGY - SIDE EFFECTS SULFA (FOR ALLERGY USE ONLY): SEVERE HESDACHE - ALLERGY LATEX (FOR ALLERGY USE ONLY): RASH - ALLERGY SURGICAL HISTORY TONSILLECTOMY CHILDHOOD D&C HYSTERECTOMY, TRANSVAGINAL FOR FIBROIDS 1989 RIGHT LOWER LOBE RESECTION FOR PULMONARY NODULE (FOUND TO BE TANJA) 1990 ENDOSCOPIC SINUS SURGERY 1997 BILATERAL BREAST REDUCTION 2006 COLONOSCOPY 11/2010 COLONOSCOPY AND UPPER ENDOSCOPIES-DR. KAYE 10/18/2016 L2-5 LAMENECTOMY AND FUSION-DR LUCAS, FOR SPINAL STENOSIS 11/11/2016 FAMILY HISTORY FATHER: , DIAGNOSED WITH DIABETES, HYPERTENSION, UNSPECIFIED HEART DISEASE MOTHER: , OTHER SPECIFIED CONDITIONS INFLUENCING HEALTH STATUS, OTHER MALIGNANT NEOPLASM OF UNSPECIFIED SITE SIBLINGS: ALIVE DAUGHTER(S): ALIVE PATERNAL GRAND FATHER: PATERNAL GRAND MOTHER: MATERNAL GRAND FATHER: MATERNAL GRAND MOTHER: 2 SISTER(S) . 2DAUGHTER(S) . SISTER HAS DIABETES,ARTHRITIS\\\\NNOT SURE OF OTHER SISTERS HEALTH\\\\NFATHER HAD DIABETES AND HEART DISEASE. MOTHER OF PANCREATIC CANCER, APPARENTLY HAD COLON CANCER,AND WAS HYPOTHYROID. ONE OF TWO SISTERS IS HYPOTHYROID. , 1 MISCARRIAGE; ONE DAUGHTER HAS ASTHMA.\\\\N. SOCIAL HISTORY GENERAL: TOBACCO USE ARE YOU A:NONSMOKER LATEX QUESTIONNAIRE LATEX ALLERGY : HAVE YOU EVER DEVELOPED ANY TYPE OF REACTION AFTER HANDLING LATEX PRODUCTS SUCH RUBBER GLOVES, CONDOMS, DIAPHRAGMS, BALLOONS, SOCKS, OR UNDERWEAR?YES LATEX ALLERGY : HAVE YOU EVER DEVELOPED ANY TYPE OF REACTION DURING OR AFTER DENTAL APPOINTMENT, VAGINAL/RECTAL EXAMINATION, SURGICAL PROCEDURE, OR ANY OTHER EXPOSURE?NO - PLEASE INDICATE :RUBBER GLOVES DATE ASKED : 09/18/2019 LATEX RISK : HAVE YOU EVER HAD ANY DIFFICULTY BREATHING OR HIVES AFTER EATING OR HANDLING ANY FRUITS, OR VEGETABLES; SUCH KIWI, BANANAS, STONE FRUITS, OR CHESTNUTSNO LATEX RISK : DO YOU HAVE A PREVIOUS PERSONAL HISTORY OF MORE THAN NINE SURGERIES, SPINA BIFIDA, OR REPEATED CATHERIZATIONS? YES - PLEASE INDICATE : > 9 SURGERIES LATEX RISK : ARE YOU FREQUENTLY EXPOSED TO LATEX PRODUCTS IN YOUR OCCUPATION?NO BMI CARE GOAL FOLLOW-UP ABOVE NORMAL BMI FOLLOW-UPWEIGHT MONITORING ALCOHOL SCREENING DID YOU HAVE A DRINK CONTAINING ALCOHOL IN THE PAST YEAR?NO POINTS0 INTERPRETATIONNEGATIVE RECREATIONAL DRUG USE DENIES. CAFFEINE 1-2/DAY. SEXUAL HX HAD SEX IN THE LAST 12 MONTHS (VAGINAL, ORAL, OR ANAL)?NO HAVE YOU EVER HAD AN STD?NO HIV / HEP-C SCREENING HIV TEST OFFERED TO PATIENT:YES DATE OFFERED:08/02/2017 TEST ACCEPTED:NO HEP-C TEST OFFERED TO PATIENT:YES DATE OFFERED:08/02/2017 REASON:PATIENT DECLINED TEST ACCEPTED:NO REASON:PATIENT DECLINED BROCHURE PROVIDED TO PATIENTYES MANDAEN NO SCIENTOLOGIST BELIEFS THAT WOULD IMPACT HEALTH CARE. LANGUAGE DUTCH. 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 DIET: NO CONCENTRATED SWEETS.. EXERCISE: WALKS. OTHERS AT HOME: NONE. PAIN CLINIC PFS, CLERGY, PUBLIC HEALTH REFERRALS HAS THE PATIENT BEEN EDUCATED REGARDING HIS/HER PLAN OF CARE?YES HAS THE PATIENT BEEN EDUCATED REGARDING PAIN, THE RISK FOR PAIN, THE IMPORTANCE OF EFFECTIVE PAIN MANAGEMENT, AND THE PAIN ASSESSMENT PROCESS?YES HOUSING: OWNS HOME. ADVANCE DIRECTIVE ADVANCE DIRECTIVE DISCUSSED WITH PATIENT:YES PT. STATES SHE HAS HCP 1. ROBERT LAUREL [phone] 2. DAVID MATHEW [phone] POA: [facility] HOSPITALIZATION/MAJOR DIAGNOSTIC PROCEDURE STATED ABOVE 2 CHILDBIRTH ASTHMA PNEUMONIA CHEST PAIN 10/2014 ER VISIT FOR SCIATIC PAIN- WHILE [facility] 10/2015 ER VISIT FOR ASHMA 10/2018 VITAL SIGNS WT 184 LBS, HT 65 IN, BMI 30.62 INDEX, BP 123/67 MM HG, HR 106 /MIN, RR 18 /MIN, TEMP 96.8 F, OXYGEN SAT % 100%, BLOOD GLUCOSE LEVEL 126 THIS AM PER PT, SAFE IN ENV? (Y/N) YES, REVIEWED BY: CADEN. EXAMINATION GENERAL EXAMINATION: THE PATIENT IS ALERT, ORIENTED TIMES THREE AND COOPERATIVE. HEART SHOWS REGULAR RHYTHM, NO MURMURS AND NO GALLOPS. LUNGS ARE CLEAR TO AUSCULTATION. ASSESSMENTS TROCHANTERIC BURSITIS, LEFT HIP - M70.62 (PRIMARY) TREATMENT TROCHANTERIC BURSITIS, LEFT HIP [facility] FLUORO GUIDANCE (PAIN)[id number] PROCEDURES PAIN NURSING RECORD PRE-PROCEDURE IV SITE N/A PROCEDURE PHYSICIAN IN ROOM 1217, START 1221, FINISH 1228, PHYSICIAN OUT OF ROOM 1230, STEROID KENALOG, O2 RA, ECG OTHER SINUS TACHYCARDIA, RATE 100-110, PATIENT SHIELDED YES, SAFETY STRAP YES, PREP CHLOROPREP, IV INFUSED N/A, DRESSING TEGADERM LOC: 1. ALERT, ORIENTED RESP: 1. REGULAR, NO DYSPNEA COLOR: 1. PINK SKIN: 1. WARM, DRY POSITION: 3. LATERAL LEFT SIDE UP VITALS: 1200 116/59 105-18 95% , KIT GUY 10/01/2019 12:16:07 PM > 126/57 99-18 97% , KIT GUY 10/01/2019 12:27:39 PM > 125/61 98- 18 97% , KIT GUY 10/01/2019 12:59:39 PM > 132/69 102-18 98% DISCHARGE: POST PAIN 0, DRESSING SITE DRY AND INTACT, IV N/A, GAIT STEADY, TEACHING COMPLETED, PATIENT ACKNOWLEDGES UNDERSTANDING YES, PATIENT DISCHARGED AT 1300 PREPROCEDURE DIAGNOSIS: BURSITIS AT THE LEFT GREATER TROCHANTER OF THE FEMUR. POSTPROCEDURE DIAGNOSIS: BURSITIS AT THE LEFT GREATER TROCHANTER OF THE FEMUR. PROCEDURE: INJECTION AT THE BURSA OF THE LEFT GREATER TROCHANTER OF THE FEMUR UNDER FLUOROSCOPIC GUIDANCE. SURGEON: DR. NAVID GORDON CLIENT MANAGER LARGE LAW: NONEANESTHESIA: LOCAL. PREOPERATIVE NOTE: THE PATIENT HAS A HISTORY OF LEFT HIP PAIN. I EVALUATED THE PATIENT AND REVIEWED THE CHART. WE BOTH AGREE ON INJECTING OVER THE BURSA OF THE LEFT GREATER TROCHANTER OF THE FEMUR. I DISCUSSED THE RISKS, BENEFITS AND ALTERNATIVES ASSOCIATED WITH THIS PROCEDURE. I DISCUSSED THAT THE USE OF STEROIDS MAY CONTRIBUTE TO IMMUNOSUPPRESSION OF THE PATIENT'S BODY AGAINST INFECTIONS SUCH COVID-19. THE PATIENT IS AWARE OF THE POTENTIAL COMPLICATIONS ASSOCIATED WITH THIS VIRUS, INCLUDING, BUT NOT LIMITED TO, . I DISCUSSED THE USE OF DEXAMETHASONE INSTEAD OF KENALOG; HOWEVER, THE PATIENT WOULD LIKE TO MOVE FORWARD WITH KENALOG. THE PATIENT WOULD LIKE TO PROCEED AND GAVE CONSENT TO PERFORM THE PROCEDURE. THE PATIENT DENIES UNEXPLAINABLE WEIGHT LOSS, FEVERS, CHILLS, OR CHANGES IN HIS URINARY OR BOWEL CONTROL. THE PATIENT IS COVID-19 NEGATIVE.DESCRIPTION OF PROCEDURE: AFTER CONSENT WAS TAKEN, THE PATIENT WAS BROUGHT TO THE PROCEDURE ROOM AND PLACED IN THE RIGHT LATERAL DECUBITUS POSITION. THE LEFT HIP AREA WAS CLEANED WITH CHLORAPREP SOLUTION AND DRAPED ASEPTICALLY. THE PROCEDURE WAS DONE UNDER STERILE CONDITIONS. A TIMEOUT WAS PERFORMED WHERE LATERALITY AND THE SITE OF THE PROCEDURE WERE CHECKED AND CONFIRMED WITH EVERYONE IN THE ROOM. UNDER FLUOROSCOPIC GUIDANCE, TARGET WAS SELECTED AT THE LEFT GREATER TROCHANTER OF THE FEMUR. LIDOCAINE WAS USED TO NUMB THE SKIN AND THE SUBCUTANEOUS TISSUE BELOW IT. SPINAL NEEDLE, 22-GAUGE, WAS ADVANCED UNDER FLUOROSCOPIC GUIDANCE AND FOLLOWING PATIENT FEEDBACK UNTIL THE TARGET WAS TOUCHED. POSITION OF THE NEEDLE WAS VERIFIED WITH AP AND LATERAL VIEWS. AFTER PROPER POSITION OF THE NEEDLE WAS ACHIEVED, ISOVUE-M 30%, 1.0 ML, WAS INJECTED SHOWING ADEQUATE SPREAD OF THE DYE. KENALOG 40 MG WAS INJECTED. THEN, A SOLUTION OF 30 ML OF BUPIVACAINE 0.125% WAS USED TO FLUSH THE SITE. THERE WAS NO EVIDENCE OF BLOOD OR PARESTHESIA. THE PATIENT WAS SENT TO THE RECOVERY ROOM. THE PATIENT WAS MOVING THE EXTREMITIES AND DOING WELL. THERE WERE NO COMPLICATIONS DURING THE PROCEDURE. ESTIMATED BLOOD LOSS WAS LESS THAN 5 ML. FLUOROSCOPIC TIME WAS 9 SECONDS. POSTOPERATIVE NOTE: I DISCUSSED THE PROCEDURE WITH THE PATIENT. WE WILL SEE THE PATIENT BACK IN SEVERAL WEEKS FOR FOLLOWUP. I AM LOOKING FOR LONG-LASTING PAIN RELIEF WITH THIS INTERVENTION. THE PATIENT IS AWARE TO STAY HOME FOR THE NEXT WEEK, IF POSSIBLE DUE TO COVID-19. I, ALFONSO WHITLEY, DOCUMENTED THE ABOVE INFORMATION ACTING A SCRIBE FOR DR. GORDON. I HAVE REVIEWED THE ABOVE DOCUMENT, WRITTEN BY ALFONSO WHITLEY, SPECIAL LIBRARIAN, AND I VERIFY THAT IT IS ACCURATE. PROCEDURE CODES 60779 DRAIN/INJECT, JOINT/BURSA, [place]IFI[place]: [place] [id number] NEEDLE LOCALIZATION BY XRAY, MODIFIERS: 26 DISPOSITION & COMMUNICATION FOLLOW UP F/UP WITH PERSONAL LINES ACCOUNT EXECUTIVE (REASON: POST LT GREATER TROCHANTER-CAN LUIS ALBERTO SEE HER THIS WEEK TO DISCUSS RT SIDE BEFORE PT MOVES.) ELECTRONICALLY SIGNED BY NAVID GORDON MD, MD ON 10/01/2019 AT 04:48 PM EDT DISCLAIMER : THIS IS A VISIT SUMMARY EXTRACTED FROM THE [employer] CHART. IT IS NOT A COPY OF THE [employer] PROGRESS NOTE. RALPH
== END ==
LOC: M PAIN 10:45
PROVIDERS: ATTEND Anesthesiology
DX: M70.62 Trochanteric bursitis, left hip (principal); E11.9 Type 2 diabetes mellitus without complications; Z79.84 Long term (current) use of oral hypoglycemic drugs; Z79.891 Long term (current) use of opiate analgesic; Z79.899 Other long term (current) drug therapy; Z88.2 Allergy status to sulfonamides; Z88.5 Allergy status to narcotic agent; Z88.8 Allergy status to other drugs, medicaments and biological substances; Z91.040 Latex allergy status; Z91.048 Other nonmedicinal substance allergy status
CPT/HCPCS: 20610; 77002; J3301; Q9967

== ENCOUNTER → 2019-10-08 | Outpatient (CLI) | payer MEDICARE ==
[~2019-10-08] MED LIST changes: -BUPIVACAINE HCL 0.25% 30ML VIAL As Ordered ONE; -ISOVUE-M 300 61% 15ML VIAL As Ordered ONE; -LIDOCAINE 1% SDV 30ML VIAL As Ordered ONE; -TRIAMCINOLONE ACETONIDE SUSP 40 MG/ML VIAL (J3301) As Ordered ONE
--- NOTE | 2019-10-10 00:08 | ECWPNPC ---
PATIENT NAME: ZACKARY RAMOS : 1945 GENDER: FEMALE VISIT DATE: 10/08/2019 DISCHARGE DATE: 10/08/19 1150 VISIT LOCKED DATE TIME: PHYSICIAN: LUIS ALBERTO ELIZABETH RESOURCE: LUIS ALBERTO ELIZABETH HISTORY OF PRESENT ILLNESS GENERAL: - 74-YEAR-OLD FEMALE IN FOR POST LEFT TROCHANTERIC BURSAL INJECTION FOLLOW-UP. SHE FEELS THE PROCEDURE WAS EFFECTIVE OVERALL RATING HER PAIN PREPROCEDURE AT A 4 OUT OF 10 AND POSTPROCEDURE AT A 0-1 OUT OF 10. SHE FURTHER STATES THE PROCEDURE CONTINUES TO HELP HER TODAY. FALL RISK SCREENING: SCREENING :NO FALLS REPORTED IN THE LAST YEAR PAIN SCREENING: PATIENT HAS A COMPLAINT OF ACUTE OR CHRONIC PAIN :NO [id number], [id number], TODAY-0-04/13 NURSING NOTE: PT. STATED PROCEDURE DID HELP A LOT-. PAIN CENTER INTAKE QUESTIONS: DO YOU HAVE A HISTORY OF MRSA? :NO DO YOU TAKE A BLOOD THINNERS? :NO DO YOU HAVE ANY BLEEDING DISORDERS? :NO ANY NEW NUMBNESS OR WEAKNESS IN YOUR LEGS OR ARMS? :NO ANY PACEMAKER,DEFIBRILLATOR, OR DORSAL COLUMN STIMULATOR? :NO DO YOU HAVE ANY RASHES OR OPEN SORES? :NO ARE YOU ALLERGIC TO IV DYE? :NO ARE YOU DIABETIC? :YES ANY NEW PROBLEMS WITH YOUR MEDICATIONS? :NO HAVE YOU RECEIVED A VACCINE IN THE PAST 30 DAYS? :NO DO YOU PLAN TO RECEIVE A VACCINE IN THE NEXT 21 DAYS? :NO DO YOU NEED ANY PRESCRIPTION? :NO DO YOU TAKE ANY IMMUNOSUPPRESSIVE MEDICATIONS? :NO IS THERE A CHANCE YOU COULD BE ? :NO ARE YOU BREAST FEEDING? :NO CURRENT MEDICATIONS TAKING SYSTANE 0.4-0.3 % SOLUTION 1 DROP INTO AFFECTED EYE NEEDED OPHTHALMIC DAILY NEEDED, NOTES: 3 DAYS TAKING PROVENTIL HFA 108 (90 BASE) MCG/ACT AEROSOL SOLUTION 2 PUFFS ` INHALATION EVERY 4 HRS NEEDED FOR WHEEZING, NOTES: 10/01 799 TAKING RHINOCORT AQUA 32 MCG/ACT SUSPENSION 2 PUFFS IN EACH NOSTRIL NASALLY ONCE A DAY NEEDED, NOTES: > 2 WEEKS TAKING VITAMIN D3 2000 UNIT CAPSULE 1 TABLET ONCE A DAY, NOTES: 09/29 699 TAKING CALCIUM 500 MG TABLET 2 TABLET WITH MEALS ORALLY TWICE A DAY, NOTES: 09/29 699 TAKING ADVIL 200 MG TABLET 2 TABLETS WITH FOOD OR MILK NEEDED ORALLY EVERY 6 HOURS NEEDED, NOTES: 09/27 TAKING ADVAIR DISKUS 500-50 MCG/DOSE AEROSOL POWDER BREATH ACTIVATED 1 PUFF INHALATION TE TWICE A DAY, NOTES: 09/30 0700 TAKING EXCEDRIN MIGRAINE 250-250-65 MG TABLET 1 TAB ORALLY ONCE A DAY NEEDED, NOTES: 4 DAYS AGO TAKING MICROLET LANCETS - MISCELLANEOUS DIRECTED E11.9 DAILY TAKING BLOOD GLUCOSE TEST - STRIP DIRECTED IN VITRO, DX: E11.9 DAILY TAKING GLIPIZIDE 5 MG TABLET 1/2 TABLET ORALLY WTH SUPPER, NOTES: 09/29 1899 TAKING PROTONIX 40 MG TABLET DELAYED RELEASE 1 TABLET ORALLY ONCE A DAY, NOTES: 09/29 1899 TAKING JANUVIA 100 MG TABLET 1 TABLET ORALLY ONCE A DAY, NOTES: 09/29 07 TAKING ACETAMINOPHEN-CODEINE 300-30 MG TABLET 1 TABLET NEEDED ORALLY DAILY NEEDED, NOTES: 09/28 TAKING DIFLUCAN 200 MG TABLET 1 TABLET ORALLY DAILY, NOTES: JUST STARTED NOT-TAKING TRIAMCINOLONE ACETONIDE 0.1 % OINTMENT 1 APPLICATION EXTERNALLY TO LEFT ARM RASH TWICE A DAY NOT-TAKING HYDROCODONE-ACETAMINOPHEN 5-325 MG TABLET 1 TABLET NEEDED ORALLY FOR PAIN, I-STOP #[id number] EVERY 6 HRS MDD 3 NOT-TAKING VALTREX 1 GM TABLET DIRECTED ORALLY TAKE 2 TABS AT THE FIRST SIGN OF OUTBREAK AND REPEAT 2 TABS IN 12 HOURS MEDICATION LIST REVIEWED AND RECONCILED WITH THE PATIENT PAST MEDICAL HISTORY ASTHMA DIABETES MELLITUS HYPERCHOLESTEROLEMIA ALLERGIC RHINITIS HISTORY OF ADENOMATOUS POLYP OF COLON CHRONIC ARTHRITIS DYSTHYMIA OBSTRUCTIVE SLEEP APNEA INSOMNIA UNSPECIFIED ABDOMINAL PAIN HERPES SIMPLEX DISEASE NIGHT SWEATS HISTORY OF SPINAL STENOSIS AGE-RELATED OSTEOPOROSIS WITHOUT CURRENT PATHOLOGICAL FRACTURE BACK PAIN ALLERGIES TORECAN: STIFF JAW - ALLERGY LEVAQUIN: RASH - ALLERGY IV TEQUIN: RASH - ALLERGY SULFACET-R: SEVERE HEADACHES - SIDE EFFECTS TAPES: RASH - ALLERGY DEMEROL: HALLUCINATIONS - SIDE EFFECTS METFORMIN HCL: EXCESSIVE NIGHT SWEATS,ELEVATED GLUCOSE - ALLERGY REMERON: GROGGY - SIDE EFFECTS LEXAPRO: GROGGY - SIDE EFFECTS SULFA (FOR ALLERGY USE ONLY): SEVERE HESDACHE - ALLERGY LATEX (FOR ALLERGY USE ONLY): RASH - ALLERGY SURGICAL HISTORY TONSILLECTOMY CHILDHOOD D&C HYSTERECTOMY, TRANSVAGINAL FOR FIBROIDS 1989 RIGHT LOWER LOBE RESECTION FOR PULMONARY NODULE (FOUND TO BE TANJA) 1990 ENDOSCOPIC SINUS SURGERY 1997 BILATERAL BREAST REDUCTION 2006 COLONOSCOPY 11/2010 COLONOSCOPY AND UPPER ENDOSCOPIES-DR. KAYE 10/18/2016 L2-5 LAMENECTOMY AND FUSION-DR LUCAS, FOR SPINAL STENOSIS 11/11/2016 FAMILY HISTORY FATHER: , DIAGNOSED WITH HYPERTENSION, UNSPECIFIED HEART DISEASE, DIABETES MOTHER: , OTHER MALIGNANT NEOPLASM OF UNSPECIFIED SITE, OTHER SPECIFIED CONDITIONS INFLUENCING HEALTH STATUS SIBLINGS: ALIVE DAUGHTER(S): ALIVE PATERNAL GRAND FATHER: PATERNAL GRAND MOTHER: MATERNAL GRAND FATHER: MATERNAL GRAND MOTHER: 2 SISTER(S) . 2DAUGHTER(S) . SISTER HAS DIABETES,ARTHRITIS\\\\NNOT SURE OF OTHER SISTERS HEALTH\\\\NFATHER HAD DIABETES AND HEART DISEASE. MOTHER OF PANCREATIC CANCER, APPARENTLY HAD COLON CANCER,AND WAS HYPOTHYROID. ONE OF TWO SISTERS IS HYPOTHYROID. , 1 MISCARRIAGE; ONE DAUGHTER HAS ASTHMA.\\\\N. SOCIAL HISTORY GENERAL: TOBACCO USE ARE YOU A:NONSMOKER LATEX QUESTIONNAIRE LATEX ALLERGY : HAVE YOU EVER DEVELOPED ANY TYPE OF REACTION AFTER HANDLING LATEX PRODUCTS SUCH RUBBER GLOVES, CONDOMS, DIAPHRAGMS, BALLOONS, SOCKS, OR UNDERWEAR?YES - PLEASE INDICATE :RUBBER GLOVES LATEX ALLERGY : HAVE YOU EVER DEVELOPED ANY TYPE OF REACTION DURING OR AFTER DENTAL APPOINTMENT, VAGINAL/RECTAL EXAMINATION, SURGICAL PROCEDURE, OR ANY OTHER EXPOSURE?NO LATEX RISK : HAVE YOU EVER HAD ANY DIFFICULTY BREATHING OR HIVES AFTER EATING OR HANDLING ANY FRUITS, OR VEGETABLES; SUCH KIWI, BANANAS, STONE FRUITS, OR CHESTNUTSNO LATEX RISK : DO YOU HAVE A PREVIOUS PERSONAL HISTORY OF MORE THAN NINE SURGERIES, SPINA BIFIDA, OR REPEATED CATHERIZATIONS? YES - PLEASE INDICATE : > 9 SURGERIES LATEX RISK : ARE YOU FREQUENTLY EXPOSED TO LATEX PRODUCTS IN YOUR OCCUPATION?NO DATE ASKED : 10/08/2019 BMI CARE GOAL FOLLOW-UP ABOVE NORMAL BMI FOLLOW-UPWEIGHT MONITORING ALCOHOL SCREENING DID YOU HAVE A DRINK CONTAINING ALCOHOL IN THE PAST YEAR?NO POINTS0 INTERPRETATIONNEGATIVE RECREATIONAL DRUG USE DENIES. CAFFEINE 1-2/DAY. SEXUAL HX HAD SEX IN THE LAST 12 MONTHS (VAGINAL, ORAL, OR ANAL)?NO HAVE YOU EVER HAD AN STD?NO HIV / HEP-C SCREENING HIV TEST OFFERED TO PATIENT:YES DATE OFFERED:08/02/2017 TEST ACCEPTED:NO HEP-C TEST OFFERED TO PATIENT:YES DATE OFFERED:08/02/2017 REASON:PATIENT DECLINED TEST ACCEPTED:NO REASON:PATIENT DECLINED BROCHURE PROVIDED TO PATIENTYES RESTORATION NO SPIRITISM BELIEFS THAT WOULD IMPACT HEALTH CARE. LANGUAGE TURKISH. 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 DIET: NO CONCENTRATED SWEETS.. EXERCISE: WALKS. OTHERS AT HOME: NONE. PAIN CLINIC PFS, CLERGY, PUBLIC HEALTH REFERRALS HAS THE PATIENT BEEN EDUCATED REGARDING HIS/HER PLAN OF CARE?YES HAS THE PATIENT BEEN EDUCATED REGARDING PAIN, THE RISK FOR PAIN, THE IMPORTANCE OF EFFECTIVE PAIN MANAGEMENT, AND THE PAIN ASSESSMENT PROCESS?YES HOUSING: OWNS HOME. ADVANCE DIRECTIVE ADVANCE DIRECTIVE DISCUSSED WITH PATIENT:YES PT. STATES SHE HAS HCP 1. ROBERT LAUREL [phone] 2. DAVID MATHEW [phone] POA: [facility] HOSPITALIZATION/MAJOR DIAGNOSTIC PROCEDURE STATED ABOVE 2 CHILDBIRTH ASTHMA PNEUMONIA CHEST PAIN 10/2014 ER VISIT FOR SCIATIC PAIN- WHILE CAPE COD 10/2015 ER VISIT FOR ASHMA 10/2018 REVIEW OF SYSTEMS CONSTITUTIONAL: ANY RECENT FEVER NO . CHILLS NO . WEIGHT CHANGE OF UNKNOWN REASONS NO . GASTROENTEROLOGY: NEW UNEXPLAINABLE CHANGES IN BOWEL CONTROL NO . CONSTIPATION NO . GENITOURINARY: ANY NEW CHANGE IN BLADDER CONTROL? NO . NEUROLOGY: NEW ONSET DIZZINESS OR NEUROLOGICAL CHANGES NOT MENTIONED NO . NEW NUMBNESS OR PAIN PATTERNS NOT MENTIONED AND PERTINENT TO TODAY'S VISIT NO . CARDIOLOGY: NEW CHEST PRESSURE NO . NEW CHEST PAIN NO . RESPIRATORY: UNEXPLAINABLE COUGH NO . NEW SHORTNESS OF BREATH NO . VITAL SIGNS WT 185.0 LBS, HT 65 IN, BMI 30.78 INDEX, BP 136/63 MM HG, HR 94 /MIN, RR 18 /MIN, TEMP 96.0 F, OXYGEN SAT % 96%, SAFE IN ENV? 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 EXAMINATION GENERAL EXAMINATION: GENERALNO ACUTE DISTRESS, WELL NOURISHED AND HYDRATED. PSYCHAPPROPRIATE MOOD AND AFFECT . LUNGS:CLEAR TO AUSCULTATION BILATERALLY, NO WHEEZES, RHONCHI, RALES. HEART:NO MURMURS, REGULAR RATE AND RHYTHM. ASSESSMENTS OTHER BURSITIS OF HIP, LEFT HIP - M70.72 (PRIMARY) TREATMENT OTHER BURSITIS OF HIP, LEFT HIP REFILL ACETAMINOPHEN-CODEINE TABLET, 300-30 MG, 1 TABLET NEEDED, ORALLY, DAILY NEEDED, 30 DAYS, 30, NOTES: 09/28 CLINICAL NOTES: 74-YEAR-OLD FEMALE IN FOR POST BURSAL INJECTION FOLLOW-UP. GIVEN PRESENTING SYMPTOMS RECOMMENDED CONTINUATION CURRENT MEDICATION REGIMEN AND FOLLOW-UP AFTER NEXT INJECTION. PATIENT HAS EXPRESSED UNDERSTANDING OF AND WAS IN AGREEMENT WITH TREATMENT PLAN. GIVEN TIME TO ASK QUESTIONS AND EXPRESS CONCERNS. , ISTOP REGISTRY REVIEWED AND DEMONSTRATES COMPLLIANCE. (REF # [id number] ). PROCEDURE CODES FA211 ESTABILISHED PATIENT [facility] FACILITY CHARGE DISPOSITION & COMMUNICATION FOLLOW UP AFTER NEXT INJECTION (REASON: LEFT TROCHANTERIC BURSITIS) ELECTRONICALLY SIGNED BY MAYRA ALVARENGA ON 10/09/2019 AT 08:08 AM EDT DISCLAIMER : THIS IS A VISIT SUMMARY EXTRACTED FROM THE [employer] CHART. IT IS NOT A COPY OF THE [email or web address] PROGRESS NOTE. RALPH
== END ==
LOC: M PAIN 11:15
PROVIDERS: ATTEND Family Medicine
DX: M70.72 Other bursitis of hip, left hip (principal)

== ENCOUNTER → 2019-10-09 | Outpatient (CLI) | payer MEDICARE ==
[~2019-10-09] MED LIST changes: +PANT40TA29 PO; -PANT40TA3 PO
== END ==
LOC: M LABSMTC 10:06
PROVIDERS: ATTEND Anesthesiology
DX: Z01.818 Encounter for other preprocedural examination (principal); Z11.59 Encounter for screening for other viral diseases
CPT/HCPCS: C9803; U0003

== ENCOUNTER → 2019-10-18 | Outpatient (CLI) | payer MEDICARE ==
[2019-10-18 10:48] LABS: ALBUMIN 3.8 GM/DL (3.2-5.2); ALT/SGPT 24 U/L (12-78); BILIRUBIN,TOTAL 0.6 MG/DL (0.2-1.0); BLOOD UREA NITROGEN 18 MG/DL (7-18); CARBON DIOXIDE LEVEL 26 MEQ/L (21-32); CHLORIDE LEVEL 108 MEQ/L (98-107); CHOLESTEROL LEVEL 279 MG/DL (<200); CHOLESTEROL RISK RATIO 3.671 (<5); GLOMERULAR FILTRATION RATE > 60.0 (>39); GLUCOSE, FASTING 122 MG/DL (70-100); HDL CHOLESTEROL 76 MG/DL (>40); LDL CHOLESTEROL 180 MG/DL (<100); NON-HDL-C 203 MG/DL; SODIUM LEVEL 141 MEQ/L (136-145); TOTAL PROTEIN 6.8 GM/DL (6.4-8.2); TRIGLYCERIDES LEVEL 113 MG/DL (<150)
[2019-10-18 11:35] LABS: HEMOGLOBIN A1c 7.2 %
[2019-10-18 12:03] LABS: TOTAL 25(OH) VITAMIN D 34.8 NG/ML (30.0-100.0)
== END ==
LOC: M WUC 08:08
PROVIDERS: ATTEND Internal Medicine
DX: M81.0 Age-related osteoporosis without current pathological fracture (principal); E11.9 Type 2 diabetes mellitus without complications; E78.00 Pure hypercholesterolemia, unspecified

== ENCOUNTER → 2019-10-19 | Outpatient (CLI) | payer MEDICARE | LOC: M LABSMTC 10:59 | PROVIDERS: ATTEND Anesthesiology | DX: Z11.59 Encounter for screening for other viral diseases (principal); Z20.828 Contact with and (suspected) exposure to other viral communicable diseases | CPT/HCPCS: C9803; U0003 ==